=== PATIENT | female | born 1945 | race Caucasian/White ===

== ENCOUNTER 2021-03-03 15:21 | Emergency (ER) | payer MEDICARE, SELFPAY ==
[2021-03-03 15:32] VITALS: BP 115/79; PULSE 74; RESP 16; TEMP 36.4; O2SAT 99
--- NOTE | 2021-03-03 15:37 | ED.SKABFB ---
HPI - Skin/Abscess/Foreign Bdy General Chief complaint: Skin/Abscess/Foreign Body Stated complaint: Cat scratch on right hand Time Seen by Provider: 03/03/21 15:32 Source: patient and RN notes reviewed Mode of arrival: ambulatory Limitations: no limitations History of Present Illness HPI narrative: 75-year-old female presents to the [facility] with complaints of being scratched by a cat in the dorsal aspect right hand. Puncture wound and bruise noted. Last tetanus approximately 7 to 8 years ago. Swelling and bruising noted to the site. Occurred approximately 15 minutes prior to arrival. Does not think the cat has been fully vaccinated. Has full range of motion of fingers, strong plaster maker. Neurovascularly intact. Related Data Allergies Allergy/AdvReac Type Severity Reaction Status Date / Time latex Allergy Severe rash Verified 03/03/21 15:37 Review of Systems Review of Systems: All systems reviewed & are unremarkable except as noted in HPI and below Constitutional: Constitutional: Reports no additional constitutional complaints, Denies chills and Denies fever(s) Cardiovascular: Cardiovascular: Reports no additional cardiovascular complaints and Denies chest pain Respiratory: Respiratory: Reports no additional respiratory complaints, Denies cough and Denies dyspnea Musculoskeletal: Musculoskeletal: Reports no additional musculoskeletal complaints, Denies back pain, Denies arthralgias and Denies joint swelling Integumentary/Breasts: Skin/Breast: Reports as per HPI Comments: bruising and puncture wound Neurologic: Reports system reviewed and no additional complaints, except as documented Psychiatric: Psychiatric: Reports no additional psychiatric complaints Allergic/Immunologic: Allergic/Immunologic: Reports no additional allergic/immunologic complaints FOR[facility]LY [facility] Past Medical History Medical History (Updated 03/03/21 @ 15:40 by Gisselle Reed) Seasonal allergies Surgical History Surgical History Hx of carpal tunnel repair Hx of cataract surgery Family History Family History Mother Hx of cancer of uterus Hypotension Father Heart disease Diabetes mellitus Hypertension Sibling Asthma Hypotension Diabetes mellitus Daughter Hypertension Son Hypertension Social History Social History Smoking status: Never smoker Alcohol intake: current Substance use: never Substance use type: does not use Gender identity (if verbalized by the patient): Female Agree to blood products: Yes Comments At the time of my signature, I reviewed and agree with the nursing past medical, surgical, social, and family history. There is no relevant family history pertinent to the patient complaint. Exam Const: General: healthy appearing, no acute distress and alert Nutritional Appearance: well nourished Orientation/consciousness: patient oriented x3 Limitations: no limitations HENMT: Head: normal to inspection Eyes: Pupils: Equal, round and reactive pupils present Neck: Neck: normal visual inspection, no lymphadenopathy and no meningeal signs Chest: Chest palpation & inspection: normal inspection of the chest Resp: Effort & Inspection: normal respiratory effort and no use of accessory muscles Auscultation: clear to auscultation bilaterally, no crackles, no rales, no rhonchi and no wheezes Cardio: Rate: regular rate Rhythm: regular rhythm Back/Spine/Pelvis: Back: no CVA tenderness Skin: Wounds: wounds noted puncture wound right dorsal hand without any surrounding erythema Other: Bruising dorsal aspect right hand measuring 2 x 3 cm with a puncture wound in the center Neuro: General: patient oriented x3, moves all extremities, no meningeal signs and no focal motor deficits Speech: normal speech Gait exam (Neuro): Normal gait present Extrem: General: n
[2021-03-03] MEDS: TETANUS,DIPHTHERIA,AC PERTUSSIS ADULT (0.5 ML) BOOSTRIX IM (15:45)
== END 2021-03-03 16:00 | disposition home or self-care (01) ==
PROVIDERS: Emergency Provider Nurse Practitioner; PCP Family Medicine
DX: S60.511A Abrasion of right hand, initial encounter (principal); W55.03XA Scratched by cat, initial encounter; Z23 Encounter for immunization
CPT/HCPCS: 90471; 90715; 99213; G0463

== ENCOUNTER 2022-02-18 10:30 | Outpatient (CLI) | payer MEDICARE, SELFPAY ==
[2022-02-18 11:05] LABS: Hematocrit 39.7 % (37.0-47.0); Hemoglobin 12.3 g/dL (12.0-15.0); Mean Corpuscular Hemoglobin 29.5 pg (26-34); Mean Corpuscular Volume 95.2 fl (80-100); Mean Platelet Volume 11.5 fl (7.4-10.4); Platelet Count Result 258 k/mm3 (150-375); Red Blood Count 4.17 M/mm3 (4.2-5.4); Red Cell Distribution Width 13.3 % (11.5-14.5)
[2022-02-18 11:22] LABS: Alanine Aminotransferase 25 U/L (6-35); Albumin Level 4.5 g/dL (3.5-5.1); Alkaline Phosphatase 140 U/L (38-126); Anion Gap 7 mmol/L (8-16); Aspartate Amino Transferase 32 U/L (14-36); Bilirubin,Total 0.7 mg/dL (0.2-1.3); Blood Urea Nitrogen 14 mg/dL (7-17); Calcium 9.1 mg/dL (8.4-10.2); Carbon Dioxide 29 mmol/L (22-30); Chloride 104 mmol/L (98-107); Cholesterol 222 mg/dL (0-200); Estimated Glomerular Filt Rate > 60; Glucose 97 mg/dL (65-110); HDL Direct 35 mg/dL; Sodium 140 mmol/L (137-145); Triglycerides 238 mg/dL (<150)
[2022-02-18 11:33] LABS: LDL Cholesterol Direct 109 mg/dL
== END 2022-02-18 10:31 | disposition home or self-care (01) ==
LOC: ANHLAB 10:32
PROVIDERS: PCP Family Medicine; Visit Provider Family Medicine
DX: E78.2 Mixed hyperlipidemia (principal)
CPT/HCPCS: 36415; 80053; 80061; 85027; 86900; 86901

== ENCOUNTER 2022-02-23 09:10 | Outpatient (CLI) | payer MEDICARE, SELFPAY ==
[2022-02-23 09:56] LABS: Add Urine Microscopic? YES; Appearance Urine Cloudy (Clear); Bilirubin Urine 1+ (Negative); Blood Urine 1+ (Negative); Color Urine Yellow (Yellow); Glucose Urine UA Negative (Negative); Ketones Urine Negative (Negative); Leukocyte Esterase Ur 1+ LEU/UL (NEGATIVE); Nitrate Urine Negative (Negative); Protein Urine Trace mg/dL (Negative); Specific Grav Ur >= 1.030 (1.001-1.035); Urobilinogen Urine 0.2 mg/dL (<2.0); pH Urine 5.5 (5.0-9.0)
[2022-02-23 10:04] LABS: Bacteria Urine Trace /hpf; Mucus Urine Few /lpf; Squamous Epithelial Cell Urine Many /hpf (Few)
[2022-02-26 16:51] LABS: Albumin 3.9 g/dL (3.8-4.8); Alpha 1 Globulin 0.3 g/dL (0.2-0.3); Alpha 2 Globulin 0.7 g/dL (0.5-0.9); Beta 1 Globulin 0.5 g/dL (0.4-0.6); Gamma Globulin 1.7 g/dL (0.8-1.7); Protein, Total 7.6 g/dL (6.1-8.1)
== END 2022-02-23 09:11 | disposition home or self-care (01) ==
PROVIDERS: PCP Family Medicine; Visit Provider Family Medicine
DX: R77.9 Abnormality of plasma protein, unspecified (principal); R39.9 Unspecified symptoms and signs involving the genitourinary system
CPT/HCPCS: 36415; 81001; 84155; 84165; 87086

== ENCOUNTER → 2022-04-20 14:27 | Outpatient (CLI) | payer MEDICARE, SELFPAY ==
--- NOTE | ~2022-04-20 | DEXA_ITS ---
Bone Density Report Name: ALAINA MCMAHON Age: 76 Sex: Female Ethnicity: White Date of : 1945 Indication: postmenopausal; screening for osteoporosis; asthma or emphysema; Referring Provider: AMRIK BLEVINS Study: Bone densitometry was performed. Exam Date: April 20, 2022 Accession number: [id number] Bone Density: Region BMD T-score Z-score Classification AP Spine (L1-L4) 0.947 -0.9 1.5 Normal Femoral Neck (Left) 0.776 -0.7 1.4 Normal Total Hip (Left) 1.115 1.4 3.2 Normal Femoral Neck (Right) 0.855 0.1 2.1 Normal Total Hip (Right) 1.104 1.3 3.1 Normal Total Hip Mean 1.110 1.4 3.2 Normal World Health Organization criteria for BMD impression classify patients as: Normal (T-score at or above -1.0), Osteopenia (T-score between -1.0 and -2.5), or Osteoporosis (T-score at or below -2.5). 10-year Fracture Risk: FRAX not reported because: All T-scores for Spine Total, Hip Total, Femoral Neck at or above -1.0 Previous Exams: Region Exam Age BMD T-score BMD Change BMD Change Date g/cm2 vs Baseline vs Previous AP Spine(L1-L4) 04/20/2022 76 0.947 -0.9 -0.032* -0.032* 11/04/2005 59 0.979 -0.6 Total Hip(Left) 04/20/2022 76 1.115 1.4 -0.046* -0.046* 11/04/2005 59 1.161 1.8 Total Hip(Right) 04/20/2022 76 1.104 1.3 -0.073* -0.073* 11/04/2005 59 1.177 1.9 *Denotes significance at 95% confidence level, LSC for AP Spine = 0.022 g/cm2, LSC for Total Hip = 0.027 g/cm2 Clinical Information Provided by Patient: Has the following medical conditions: Asthma or Emphysema Patient maximum height was 63 Menopause Age: 47 No regular weight bearing exercise Drinks caffeinated beverages Onset of menses at age 13 Number of children 2 Impression: The patient has normal bone mass. The BMD for the AP Spine(L1-L4) decreased, changing by -0.032 since the last DXA exam. The BMD for the Total Hip(Left) decreased, changing by -0.046 since the last DXA exam. The BMD for the Total Hip(Right) decreased, changing by -0.073 since the last DXA exam. Discussion: BONE DENSITY IS ABOVE THE MINIMUM DESIRABLE LEVEL AT ALL SKELETAL SITES TESTED. This patient?s bone mineral density is above the minimum desirable level (T-score -1.0 or better) at all sites measured. The patient should follow a healthful lifestyle (good nutrition with adequate calcium and vitamin D, and appropriate weight-bearing exercise). Fol
== END ==
PROVIDERS: PCP Family Medicine; Visit Provider Family Medicine
DX: Z78.0 Asymptomatic menopausal state (principal)
CPT/HCPCS: 77080

== ENCOUNTER 2022-10-16 13:48 | Inpatient (IN) | payer MEDICARE, SELFPAY ==
[2022-10-16] VITALS (24 sets, daily range): BP systolic 122–177; BP diastolic 58–117; PULSE 66–91; RESP 13–22; TEMP 36.7–36.9; O2SAT 96–100; BMI 35.6
--- NOTE | ~2022-10-16 | CT_ITS ---
EXAMINATION: CT abdomen pelvis w con INDICATION: Abdominal distention TECHNIQUE: Computed tomographic images of the abdomen and pelvis were obtained after the administrati on of 100 cc of Omnipaque 350 intravenous contrast. The dose-length product (DLP) was 1120.36 mGy-cm. Automated exposure control and iterative reconstruction technique were employed. COMPARISON: 11/26/2005 FINDINGS: Minimal dependent atelectasis is present in the lung bases. The heart size is normal. A car diac pacemaker lead enters the right atrium and right ventricle through the inferior vena cava. Stone s are present in the nondistended gallbladder. The liver, spleen, and adrenal glands are normal. Ther e is a 1.4 x 0.6 cm cystic lesion in the head/body of the pancreas. Hypoattenuating lesions in the ki dneys, measuring up to 8 mm on the left, are too small to characterize but likely represent cysts. No pathologically enlarged abdominal or pelvic lymph nodes are identified. No free intraperitoneal gas or evidence of bowel obstruction. Colonic diverticulosis is present without evidence of diverticuliti s. The bladder is decompressed by Lopez catheter. The appendix is normal. IMPRESSION: 1. No CT correlate for the patient's symptoms. 2. Cholelithiasis without evidence of cholecystitis. 3. 1.4 cm cystic lesion of the pancreas. The differential diagnosis includes pseudocyst, intraductal papillary mucinous neoplasm (IPMN), mucinous cystic neoplasm (MCN), and the less common serous cystad enoma and neuroendocrine tumor. Correlate for history of pancreatitis. Follow-up pancreas protocol CT or MRI in two years is recommended. Reviewed, dictated and finalized at location A. ING MACHINE FEEDER IMPRESSION: 1. No CT correlate for the patient's symptoms. 2. Cholelithiasis without evidence of cholecystitis. 3. 1.4 cm cystic lesion of the pancreas. The differential diagnosis includes ps eudocyst, intraductal papillary mucinous neoplasm (IPMN), mucinous cystic neopl asm (MCN), and the less common serous cystadenoma and neuroendocrine tumor. Cor relate for history of pancreatitis. Follow-up pancreas protocol CT or MRI in tw o years is recommended.
--- NOTE | ~2022-10-16 | CT_ITS ---
EXAMINATION: CT brain wo con DATE: 10/16/2022 17:14 INDICATION: Head injury. TECHNIQUE: Computed tomography (CT) of the head was performed without intravenous contrast. The mA wa s adjusted according to patient size. Iterative reconstruction technique was employed. The dose-lengt h product was 681.00 mGy-cm. COMPARISON: None FINDINGS: There is no intracranial hemorrhage, acute infarction, or abnormal intracranial mass lesion . There are scattered areas of low attenuation in the cerebral white matter, which is within normal l imits for the patient's age. The ventricles are normal in size. There are likely changes of ocular le ns replacement surgeries. There is mild mucosal thickening in the ethmoid sinuses. There is soft tiss ue swelling and soft tissue gas in the nose. The mastoid air cells are normal. IMPRESSION: 1. Normal aging brain. Reviewed, dictated and finalized at location A. CHOPPER IMPRESSION: 1. Normal aging brain.
--- NOTE | ~2022-10-16 | XR_ITS ---
EXAMINATION: XR chest 1V portable DATE: 10/22/2022 11:25 INDICATION: Pacer placement. TECHNIQUE: A single frontal view of the chest was obtained. COMPARISON: Chest single view 10/19/2022 FINDINGS: There is mild atelectasis in the mid and lower lung zones. No pleural effusion or pneumotho rax. Cardiomegaly is noted. There is a left chest wall pacer with leads in the right atrium and right ventricle. IMPRESSION: 1. Mild atelectasis in the mid and lower lung zones. 2. Cardiomegaly. Reviewed, dictated and finalized at location A. RUNNER
--- NOTE | ~2022-10-16 | XR_ITS ---
EXAMINATION: XR abdomen NG/feed tube insert DATE: 10/20/2022 18:13 INDICATION: Nasogastric tube placement TECHNIQUE: A supine view of the abdomen and lower chest was obtained for evaluation of feeding tube placement. COMPARISON: 10/20/2022 at 4:43 PM FINDINGS: Nasogastric tube tip in the gastric antrum with interval decompression of the stomach. Again seen are a few dilated loops of bowel in the upper abdomen, one in the right upper quadrant which appears to represent a loop of small bowel suggesting either ileus or obstruction. IMPRESSION: 1. Nasogastric tube in stomach. 2. Persistent gas-filled loops of small bowel at least one of which appears ribs at the mildly dilate d loop of small bowel which could represent ileus or obstruction. Reviewed, dictated and finalized at location A. L DISTRIBUTOR IMPRESSION: 1. Nasogastric tube in stomach. 2. Persistent gas-filled loops of small bowel at least one of which appears rib s at the mildly dilated loop of small bowel which could represent ileus or obst ruction.
--- NOTE | ~2022-10-16 | XR_ITS ---
EXAMINATION: XR abdomen/kub 1V DATE: 10/20/2022 16:50 INDICATION: Abdominal distention TECHNIQUE: A supine view of the abdomen was obtained. COMPARISON: CT dated 10/17/2022 FINDINGS: Comment gaseous distention of the stomach. There are also several gas-filled loops of bowel in the vi sualized lower abdomen which appear primarily colonic. Right femoral central venous catheter which ex tends into the heart with the distal tip in the right ventricle. Defibrillator pad projects over the central lower chest. Heart size is normal. Dense mitral annular calcification. IMPRESSION: 1. Nonspecific bowel gas pattern with prominent gaseous distention of the stomach and multiple loops of gas-filled bowel in the abdomen which appear primarily colonic. 2. Right femoral central venous catheter with distal tip in the right ventricle and would consider wi thdrawal by [address] the tip in the right atrium. Reviewed, dictated and finalized at location A. UP AND DELIVERY DRIVER IMPRESSION: 1. Nonspecific bowel gas pattern with prominent gaseous distention of the stoma ch and multiple loops of gas-filled bowel in the abdomen which appear primarily colonic. 2. Right femoral central venous catheter with distal tip in the right ventricle and would consider withdrawal by [address] the tip in the right atrium.
--- NOTE | ~2022-10-16 | US_ITS ---
Procedure: Duplex Doppler examination of the bilateral carotids. Indication: Carotid bruit Technique: Real time, color-flow and pulse wave Doppler examination of the bilateral carotids was performed. Findings: Lund scale ultrasonography of the right neck demonstrated a small plaque at the right carotid bulb/pr oximal right ICA. There was demonstration of normal color-flow and Doppler waveforms within the right common, internal and external carotid arteries. The peak systolic velocities in the right common, in ternal and external carotid arteries were demonstrated to be 96 cm/sec, 80 cm/sec and 87 cm/sec respe ctively. The right ICA/CCA ratio was 0.9.The proximal right internal carotid artery demonstrates 0% s tenosis relative to the normal distal artery lumen diameter. Lund scale sonography of the left neck demonstrated no significant plaque. There was demonstration of normal color-flow and wave forms within the left common, internal and external carotid arteries. The peak systolic velocities in the left common, internal and external carotid arteries were demonstrate d to be 90cm/sec, 46 cm/sec and 69 cm/sec respectively. The left ICA/CCA ratio was 0.8. The proximal left internal carotid artery demonstrates 0% stenosis relative to the normal distal artery lumen diam eter. There was antegrade flow demonstrated in the bilateral vertebral arteries. Impression: No hemodynamically significant stenosis of the bilateral internal carotid arteries. Antegrade flow in the bilateral vertebral arteries. Note: The methodology used is an indirect measurement validated against a direct method (such as the NASCET criteria) that compares diameters at the stenosis to the distal ICA. Reviewed, dictated and finalized at location . E DIGGER Impression: No hemodynamically significant stenosis of the bilateral internal carotid arter ies. Antegrade flow in the bilateral vertebral arteries. Note: The methodology used is an indirect measurement validated against a direct meth od (such as the NASCET criteria) that compares diameters at the stenosis to the distal ICA.
--- NOTE | ~2022-10-16 | XR_ITS ---
Clinical Indication: Pacemaker placement AP and lateral views of the chest: Comparison: 10/22/2022 Findings: The lungs are clear, without evidence of focal consolidation or pleural effusion. Cardiome diastinal silhouette is stable, with pacemaker placement. Bones and soft tissues are unremarkable. Impression: Clear lungs. No pneumothorax. Pacemaker in place. Reviewed, dictated and finalized at location . BREAKAGE CLERK Impression: Clear lungs. No pneumothorax. Pacemaker in place.
--- NOTE | ~2022-10-16 | XR_ITS ---
EXAMINATION: XR chest 1V portable INDICATION: Shortness of breath TECHNIQUE: Portable AP chest at 0541 hours COMPARISON: 10/16/2022 FINDINGS: There is mild atelectasis of the lung bases. No pleural effusion or pneumothorax. The cardi omediastinal silhouette is normal. A cardiac pacemaker lead has been inserted which enters the heart is inferior vena cava. IMPRESSION: 1. Mild atelectasis of the lung bases. Reviewed, dictated and finalized at location A. UNITY SUPPORT ASSOCIATE
--- NOTE | ~2022-10-16 | XR_ITS ---
EXAMINATION: XR chest 2V DATE: 10/16/2022 17:29 INDICATION: Syncope. TECHNIQUE: Frontal and lateral views of the chest were obtained. COMPARISON: CT abdomen 11/26/2005 FINDINGS: Calcified pulmonary nodules are consistent with old granulomatous disease. No pleural effus ion or pneumothorax. The heart size is normal. IMPRESSION: 1. No acute cardiopulmonary disease. Reviewed, dictated and finalized at location A. 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
--- NOTE | ~2022-10-16 | XR_ITS ---
EXAMINATION: XR abdomen obstructive series DATE: 10/21/2022 09:31 INDICATION: Abdominal distention TECHNIQUE: Upright and supine views of the abdomen were obtained. COMPARISON: 10/20/2022 FINDINGS: The nasogastric tube has been removed. There are persistently dilated loops of small bowel which appear to have slightly decreased in number and degree of distention. No free intraperitoneal g as is identified. Patchy bilateral airspace opacities persist, consistent with atelectasis versus pne umonia. 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 IMPRESSION: 1. Persistent but improved small bowel dilatation, ileus versus obstruction. Reviewed, dictated and finalized at location B. CLIMBER
--- NOTE | ~2022-10-16 | XR_ITS ---
EXAMINATION: XR chest 1V portable INDICATION: Fever TECHNIQUE: Portable AP chest at 0800 hours COMPARISON: 10/18/2022 FINDINGS: The lung volumes are low. There are patchy bilateral airspace opacities. The cardiomediasti nal silhouette is stable. A pacemaker lead enters the right ventricle through the inferior vena cava. There is gaseous distention of the stomach. IMPRESSION: 1. Patchy bilateral airspace opacities, consistent with atelectasis versus pneumonia. 2. Gaseous distention of the stomach. Reviewed, dictated and finalized at location B. URE COPYIST IMPRESSION: 1. Patchy bilateral airspace opacities, consistent with atelectasis versus pneu monia. 2. Gaseous distention of the stomach.
--- NOTE | 2022-10-16 13:49 | ECG_ITS ---
Measurements Intervals Hale Rate: 71 P: 49 MS: 174 QRS: -38 QRSD: 158 T: 121 QT: 444 QTc: 483 Interpretive Statements SINUS RHYTHM MARKED LEFT AXIS DEVIATION [QRS AXIS < -30] LEFT BUNDLE BRANCH BLOCK [120+ ms QRS DURATION, 80+ ms Q/S IN V1/V2, 85+ ms R IN I/aVL/V5/V6] NO PREVIOUS ECG AVAILABLE FOR COMPARISON Electronically Signed On 10-16-2022 15:04:22 [employer] by Paxton Mcfarland M.D.
[2022-10-16 14:22] LABS: Basophils Percent Auto 0.4 % (0.2-1.2); Eosinophils Absolute Auto 0.3 K/mm3 (0-0.3); Eosinophils Percent Auto 2.9 % (0-4.4); Hematocrit 42.6 % (37.0-47.0); Hemoglobin 13.3 g/dL (12.0-15.0); Immature Granulocyte Absolute 0.04 K/mm3 (0.00-0.031); Immature Granulocyte Percent A 0.4 % (0-0.5); Lymphocytes Absolute Auto 1.16 K/mm3 (0.9-3.2); Lymphocytes Percent Auto 11.6 % (18.3-44.2); Mean Corpuscular HGB Conc 31.2 g/dl (32-36); Monocytes Absolute Auto 0.6 K/mm3 (0.1-0.6); Monocytes Percent Auto 6.4 % (2.6-8.5); Neutrophils Absolute Auto 7.9 K/mm3 (1.3-6.7); Neutrophils Percent Auto 78.3 % (45.5-73.1); Platelet Count Result 300 k/mm3 (150-375); Red Blood Count 4.58 M/mm3 (4.2-5.4); Red Cell Distribution Width 13.5 % (11.5-14.5)
[2022-10-16 14:31] LABS: Alanine Aminotransferase 33 U/L (6-35); Albumin Level 4.4 g/dL (3.5-5.1); Alkaline Phosphatase 117 U/L (38-126); Anion Gap 3 mmol/L (8-16); Aspartate Amino Transferase 37 U/L (14-36); Bilirubin,Total 0.6 mg/dL (0.2-1.3); Blood Urea Nitrogen 13 mg/dL (7-17); Carbon Dioxide 30 mmol/L (22-30); Chloride 103 mmol/L (98-107); Estimated CRCL calculation 57 ml/min; Estimated Glomerular Filt Rate > 60; Glucose 110 mg/dL (65-110); Potassium 4.2 mmol/L (3.4-5.0); Sodium 136 mmol/L (137-145)
--- NOTE | 2022-10-16 16:52 | ED.GENADULT ---
HPI - General Adult General Chief complaint: Syncope Stated complaint: syncope X3 days Time Seen by Provider: 10/16/22 16:11 History of Present Illness HPI narrative: Patient is a 76-year-old female who presents ER with syncope. She has been having daily syncope for the last week. Today she went to feed her birds on her screened in porch and was handing them there black sunflower seed when she woke up on her stomach on the ground and hit her face on the porch table. She has pain over nasal bridge. She is not on blood thinners. She is unsure why she is losing consciousness and denies prodrome of racing the heart, spinning dizziness, or vision going black. No chest pain or chest pressure. Denies numbness or weakness in arm or leg. No slurred speech. Related Data Allergies Allergy/AdvReac Type Severity Reaction Status Date / Time latex Allergy Severe rash Verified 10/06/22 08:22 Review of Systems Review of Systems: All systems reviewed & are unremarkable except as noted in HPI and below Constitutional: Constitutional: Denies chills, Denies fatigue and Denies fever(s) ENT: Denies nasal congestion and Denies sore throat Comments: Nasal pain Cardiovascular: Cardiovascular: Denies chest pain, Denies rapid heart rate and Denies radiating jaw, neck or arm pain Respiratory: Respiratory: Denies cough and Denies dyspnea Neurologic: Reports syncope, Denies headache(s), Denies focal weakness and Denies numbness PMFSH Past Medical History Medical History Mixed hyperlipidemia Seasonal allergies Surgical History Surgical History Hx of carpal tunnel repair Hx of cataract surgery Family History Family History Mother Hx of cancer of uterus Hypotension Father Heart disease Diabetes mellitus Hypertension Sibling Asthma Hypotension Diabetes mellitus Daughter Hypertension Son Hypertension Social History Social History (Updated 10/06/22 @ 08:22 by Rachell Cavanaugh CMA) Smoking status: Never smoker Second hand tobacco smoke exposure: No Alcohol intake: current Alcohol use details: socially; seldom Substance use: never Substance use type: does not use Lack of Transportation: No Lack of Food: Never True Current Housing: I Have Housing Concerned About Future Housing: No Difficulty Paying Gas/Electric Bills: No Difficulty Paying for Meds: No Currently Unemployed: No Education: Master's Degree or Higher Difficulty w/ Childcare or Family Care: No Living arrangements: with family Gender identity (if verbalized by the patient): Female Sexual Orientation (if Verbalized by the Patient): Straight or Heterosexual Agree to blood products: Yes Exam Narrative: GENERAL: Well-appearing, well-nourished, and in no acute distress. HEAD: Normocephalic, atraumatic. EYES: PERRL and EOMI. ENT: Mucous membranes moist. Tenderness over the bridge of the nose with abrasion. TMs normal bilaterally. CHEST: Clear to auscultation. No respiratory distress. HEART: Regular rate and rhythm. Normal peripheral pulses. ABDOMEN: Soft, nontender, nondistended. EXTREMITIES: Normal range of motion. No edema. SKIN: Warm, dry, no rash. NEURO: Alert and oriented x3. PSYCH: Normal mood and affect. Course Course Emergency Course: Patient resting comfortably. Informed of results. Admit to hospitalist service. Concerning for cardiogenic syncope given unprovoked nature and elevated troponin. Patient aware of treatment plan and in agreement. Vital Signs Vital signs: Vital Signs Temperature 98.0 F 10/16/22 13:50 Pulse Rate 71 10/16/22 13:50 Respiratory Rate 18 10/16/22 13:50 Blood Pressure 154/81 H 10/16/22 13:50 Pulse Oximetry 97 10/16/22 13:50 Oxygen Delivery Room Air 10/16/22 13:50 Temperature 9
[2022-10-16 17:18] LABS: INR 1.1; Partial Thromboplastin Time 27.6 SECONDS (22.3-36.8); Prothrombin Time 13.7 Seconds (11.1-14.7)
[2022-10-16 17:33] LABS: Troponin I 0.041 ng/mL (0.000-0.034)
--- NOTE | 2022-10-16 19:00 | PM.IMHP ---
H&P: HPI History of Present Illness Date/Time: 10/16/22 19:00 Chief Complaint: Syncope. Narrative: This is a very pleasant 76-year-old female with history of hyperlipidemia and allergies who presented to the emergency department from home for evaluation after syncopal episode. This morning she went outside to feed the birds and when she came back in she had a brief episode where she felt ?woozy and dizzy? and she had a brief syncopal episode, striking her head on the kitchen table. She must have come to quite quickly as her legs were still holding her up somewhat though a majority of her weight was on the table. With further questioning she admits that she has had several syncopal or near syncopal episodes this week and with each episode she has a very brief prodrome with lightheadedness, weakness, nausea, and ?feeling as though my head is on a [id number].? Several days ago she fell back and hit her head on the wall. She has not sustained any significant injuries however. She denies sinus congestion, aural fullness, tinnitus, focal weakness, paresthesias, chest pain, pleuritic pain, palpitations, shortness of breath, lower extremity edema, and calf pain. She has not had a change in exercise tolerance and she and her were able to walk around [facility] for several hours a couple of weeks ago without issue. Blood pressures were stable if not elevated on arrival to the emergency department. Her initial troponin was mildly elevated 0.041 but the rest of her labs were pretty unremarkable. EKG showed sinus rhythm with left bundle branch block and a marked left axis deviation. On exam she has a pretty significant murmur consistent with aortic stenosis and with further questioning she has been told about that but she has not been referred to a order editor. She is unaware if she has ever had an abnormal EKG. Again she has not had any recent episodes of chest pain or shortness of breath. Review of Systems Review of Systems: Twelve systems were reviewed and are negative except for as per HPI. [facility] Past Medical History Medical History Mixed hyperlipidemia Seasonal allergies Surgical History Surgical History History of carpal tunnel release History of cataract extraction Family History Family History Mother Hx of cancer of uterus Hypotension Father Heart disease Diabetes mellitus Hypertension Sibling Asthma Hypotension Diabetes mellitus Daughter Hypertension Son Hypertension Social History Social History (Updated 10/16/22 @ 22:21 by Rebeka Freitas PA-C) Social History: Surrogate medical decision maker: Albino Chandra, spouse. Code status: Full code. Smoking status: Never smoker Second hand tobacco smoke exposure: No Alcohol intake: current Alcohol use details: Rare alcohol use in moderation. Substance use: never Substance use type: does not use Lack of Transportation: No Lack of Food: Never True Current Housing: I Have Housing Concerned About Future Housing: No Difficulty Paying Gas/Electric Bills: No Difficulty Paying for Meds: No Currently Unemployed: No Education: Master's Degree or Higher Difficulty w/ Childcare or Family Care: No Living arrangements: with family Additional living arrangements comments: Lives in [place] with spouse. 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 Agree to blood products: Yes Meds Home Medications and Allergies Home Medications Medication Instructions Recorded Confirmed Type albuterol sulfate 90 mcg/actuation 1 inh inhalation Q4H PRN shortness 05/20/22 10/06/22 Rx aerosol inhaler of breath or wheezing #8.5 grams atorvastatin 10 mg tablet 10 mg PO DAILY #90 tabs 06/29/22 10/16/22 Rx montelukast 10 mg tablet 10 m
[2022-10-16 20:25] LABS: Influenza A QL RT-PCR Negative (Negative); Influenza B QL RT-PCR Negative (Negative); SARS-CoV-2 RNA PCR Negative
--- NOTE | 2022-10-16 21:53 | ADMGEN ---
This patient, Bessie Chandra, was admitted to IMU Room 201-01 on 10/16/22 at 2148. Patient/family oriented to hospital policies and general routines including ID bracelet, bed and alarms, visiting hours, pain management, procedures, bathroom and other care routines, personal items, smoking policy, room service/diet, and visiting hours. Information on how to activate the Rapid Response Team has been discussed. Patient/Family are encouraged to report perceived risks to care and to ask questions if they do not understand what they are told or what they should do.
[2022-10-16 23:49] LABS: Troponin I 0.042 ng/mL (0.000-0.034)
[2022-10-17] VITALS (20 sets, daily range): BP systolic 94–153; BP diastolic 59–96; PULSE 63–131; RESP 16–23; TEMP 36.1–37.4; O2SAT 90–96
[2022-10-17 04:30] LABS: Hematocrit 38.6 % (37.0-47.0); Hemoglobin 12.4 g/dL (12.0-15.0); Mean Corpuscular HGB Conc 32.1 g/dl (32-36); Mean Corpuscular Volume 90.4 fl (80-100); Mean Platelet Volume 11.4 fl (7.4-10.4); Platelet Count Result 274 k/mm3 (150-375); Red Blood Count 4.27 M/mm3 (4.2-5.4); Red Cell Distribution Width 13.3 % (11.5-14.5); White Blood Count 9.8 K/mm3 (4.5-10.0)
[2022-10-17 04:44] LABS: Anion Gap 7 mmol/L (8-16); Blood Urea Nitrogen 12 mg/dL (7-17); Calcium 8.7 mg/dL (8.4-10.2); Carbon Dioxide 28 mmol/L (22-30); Chloride 104 mmol/L (98-107); Cholesterol 177 mg/dL (0-200); Estimated CRCL calculation 64 ml/min; Estimated Glomerular Filt Rate > 60; Glucose 94 mg/dL (65-110); HDL Direct 35 mg/dL; Magnesium 2.1 mg/dL (1.6-2.3); Potassium 3.8 mmol/L (3.4-5.0); Sodium 139 mmol/L (137-145); Triglycerides 120 mg/dL (<150)
[2022-10-17 04:55] LABS: LDL Cholesterol Direct 86 mg/dL
[2022-10-17 05:03] LABS: Troponin I 0.046 ng/mL (0.000-0.034)
[2022-10-17 05:26] LABS: Thyroid Stimulating Hormone Reflex 0.739 uIU/mL (0.465-4.68)
[2022-10-17] MEDS: ASPIRIN 81 MG ENTERIC TABLET PO (09:07)
[2022-10-17] MEDS: LORATADINE 10 MG TABLET PO (09:07)
[2022-10-17] MEDS: OMEGA 3 POLYUNSAT FATTY ACIDS 1 GM CAP PO (09:07)
[2022-10-17] MEDS: ATORVASTATIN 10 MG TABLET PO (09:07)
[2022-10-17] MEDS: ENOXAPARIN 40 MG/0.4 ML SYRINGE SUB-Q (09:07)
[2022-10-17] MEDS: PERFLUTREN LIPID MICROSPHERES 1.5 ML VIAL DILUTED TO 10 ML TOTAL VOLUME IV PUSH (09:30)
--- NOTE | 2022-10-17 10:21 | PM.CNCAR ---
Assessment and Plan Assessment and plan (1) Cardiac murmur: Code(s): R01.1 - Cardiac murmur, unspecified Status: Acute Assessment and Plan: Likely related to significant aortic stenosis. 2D echocardiogram Doppler is ordered and will be reviewed. (2) Left bundle branch block: Code(s): I44.7 - Left bundle-branch block, unspecified Status: Acute Assessment and Plan: Uncertain if this is new or old. Regardless, it may play a role in the type of pacemaker recommended (3) Mixed hyperlipidemia: Code(s): E78.2 - Mixed hyperlipidemia Status: Acute Assessment and Plan: Continue statin (4) Syncope: Code(s): R55 - Syncope and collapse Status: Acute Assessment and Plan: Her syncope is likely secondary to asystole. She has had an 8 sec pause last night and she was symptomatic at that time. Obviously contributing to her symptoms may be her significant valvular heart disease which is likely aortic stenosis. Will place transcutaneous pacer pads on her. Obviously avoid any in all AV carlita agents. Will review echocardiogram and decision will be made due to regarding possible transfer or if she stays here for dual chamber pacemaker on Wednesday. (5) Elevated troponin: Code(s): R77.8 - Other specified abnormalities of plasma proteins Status: Acute Assessment and Plan: Not related to ACS History of Present Illness History of Present Illness Consult date/time: 10/17/22 10:21 Requesting physician: Rebeka Freitas PA-C Consult reason: Other (Syncope) Reason For Visit: Syncope, elevated troponin Narrative: Date of service 10/17/2022 Reason for consultation: Syncope Requesting provider: Rebeka Freitas History: Patient is a is a 76-year-old female who does have a known history of a murmur and has been recommended to have murmur further evaluated by Cardiology but she has refused. Murmur is likely secondary to aortic stenosis. Regardless though over the past week or so she has had several episodes of either syncope and presyncope. Yesterday she came to the hospital following a syncopal episode which was very brief. She felt woozy and dizzy and then did strike her head on the kitchen table. She has had several other similar episodes with a brief prodrome of some lightheadedness weakness and nausea. Reportedly, several days ago she fell back and hit her head against the wall. No significant injuries have occurred at this point. She denies any chest pain, palpitations, paroxysmal nocturnal dyspnea, orthopnea, edema. She does have some shortness of breath with activity such as climbing up and down a flight of stairs. She came to the hospital an EKG showed a left bundle branch block. Troponins were minimally elevated 0.04. She is found have a significant aortic stenosis murmur and yesterday evening she did have ventricular asystole for about 8 seconds. She did not pass out but she was presyncopal at that time. Review of Systems Review of Systems: All systems reviewed & are unremarkable except as noted in HPI and below Constitutional: Constitutional: Denies body ache(s) Eyes: Eyes: Denies blurry vision ENT: Reports Normal hearing present Cardiovascular: Cardiovascular: Denies chest pain and Reports lightheadedness Respiratory: Respiratory: Denies dyspnea Gastrointestinal: Gastrointestinal: Denies abdominal pain Genitourinary: Genitourinary: Denies hematuria Musculoskeletal: Musculoskeletal: Denies myalgias Integumentary/Breasts: Skin/Breast: Denies erythema and Denies rash Neurologic: Denies Abnormal speech present Psychiatric: Psychiatric: Denies anxiety Endocrine: Endocrine: Denies excessive sweating Hematologic/Lymphatic: Hematologic/Lymphatic: Denies easy bleeding Allergic/Immunologic: Allergic/Immunologic: Denies GI upset with certain foods PMFSH Past Medical History Medical History (Reviewed 10/17/22 @ 10:25 by Mele
--- NOTE | 2022-10-17 12:35 | PC.NURSE ---
At 1253, RN noticed patient was going into irregular rhythm. RN checked on patient and patient was not having symptoms. RN ordered a EKG and notified dr. norwood. Dr. Norwood to bedside and given EKG to look at. Verbal orders not to treat AFib RVR due to patient pauses. Will continue to moniter patient per IMU protocols.
--- NOTE | 2022-10-17 12:49 | ECG_ITS ---
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
--- NOTE | 2022-10-17 14:17 | PM.IMPN ---
Progress Note: A&P Assessment and Plan (1) Syncope: Code(s): R55 - Syncope and collapse Status: Acute (2) Contusion of nose: Code(s): S00.33XA - Contusion of nose, initial encounter Status: Acute (3) Elevated blood pressure reading: Code(s): R03.0 - Elevated blood-pressure reading, without diagnosis of hypertension Status: Acute (4) Cardiac murmur: Code(s): R01.1 - Cardiac murmur, unspecified Status: Acute (5) Carotid bruit: Code(s): R09.89 - Other specified symptoms and signs involving the circulatory and respiratory systems Status: Acute (6) Elevated troponin: Code(s): R77.8 - Other specified abnormalities of plasma proteins Status: Acute (7) Abnormal EKG: Code(s): R94.31 - Abnormal electrocardiogram [ECG] [EKG] Status: Acute (8) Mixed hyperlipidemia: Code(s): E78.2 - Mixed hyperlipidemia Status: Acute Assessment and Plan: Syncope likely from SSS EKG showed LBBB ECHO showed aortic stenosis Pacemaker per cardiology no AV node blockers cardiology following Aortic stenosis Cardiology on board, may need further evaluation Elevated troponin trend troponin Continue statin cardiology following HLD continue statin Carotid bruit Carotid US pending Elevated BP no previous diagnosis of HTN bP 123/96 monitor DVT prophylaxis Sq Lovenox Subjective Date/time seen: 10/17/22 14:17 Presented to the ER on account of syncope noted have to sinus pause of 8 seconds last night. cardiology on board and planning to do pacemaker or transfer to a higher level of care. Denies any chest pain or SOB or palpitations Review of Systems Review of Systems: All systems reviewed & are unremarkable except as noted in HPI and below Exam Narrative: General: Well-developed female sitting up in bed in no distress. HEENT: Abrasion over the bridge of the nose. PERRL, EOMI. Sclera anicteric. Oral mucosa moist. Neck: Supple. No midline vertebral tenderness. Bilateral bruits versus likely radiation of cardiac murmur. Respiratory: Lungs are clear to auscultation bilaterally. Cardiovascular: Regular rate and rhythm with S1-S2. 3/6 systolic murmur at the right upper sternal border to carotids. Gastrointestinal: Abdomen is soft, nontender, and nondistended with positive bowel sounds. Skin: Warm and dry. No rash or lesions on limited exam. Extremities: No cyanosis, clubbing, or edema. Radial and pedal pulses intact. Neurological: Alert. Cranial nerves 2-12 are grossly intact. No gross focal deficits to casual conversation. Psychiatric: Pleasant and cooperative with normal mood and affect. Judgment and insight intact. Objective Data Vital Signs Vital Signs: Vital Signs - 24 hr 10/16/22 15:53 10/16/22 15:58 10/16/22 16:02 Temperature Pulse Rate 69 91 Respiratory Rate 22 H Blood Pressure 150/67 H Pulse Oximetry 96 98 Oxygen Delivery Room Air Room Air 10/16/22 16:40 10/16/22 16:41 10/16/22 16:42 Temperature Pulse Rate 84 81 85 Respiratory Rate Blood Pressure 165/75 H 177/86 H 168/117 H Pulse Oximetry Oxygen Delivery 10/16/22 15:48 10/16/22 16:00 10/16/22 16:15 Temperature Pulse Rate 66 71 84 Respiratory Rate 13 16 19 Blood Pressure Pulse Oximetry 96 98 96 Oxygen Delivery 10/16/22 17:32 10/16/22 17:41 10/16/22 17:53 Temperature Pulse Rate 73 72 67 Respiratory Rate 14 15 19 Blood Pressure 151/93 H Pulse Oximetry Oxygen Delivery 10/16/22 18:04 10/16/22 18:15 10/16/22 18:30 Temperature Pulse Rate 67 69 69 Respiratory Rate 19 16 22 H Blood Pressure Pulse Oximetry Oxygen Delivery 10/16/22 18:41 10/16/22 18:46 10/16/22 20:22 Temperature Pulse Rate 67 68 88 Respiratory Rate 22 H 21 H 20 Blood Pressure 144/70 H 133/78 Pulse Oximetry 99 98 Oxygen Delivery 10/16/22 21:27 10/16/22 21:33
--- NOTE | 2022-10-17 15:07 | WPDMODSED ---
Moderate Sedation Note-Pt Data Patient Data Diagnosis: sinus pauses Present Complaint: loss of consciousness Procedure to be performed/Plan: temporary pacemaker placement Allergies Allergy/AdvReac Type Severity Reaction Status Date / Time No Known Allergies Allergy Verified 10/16/22 22:49 Home Medications Medication Instructions Recorded Confirmed Type albuterol sulfate 90 mcg/actuation 1 inh inhalation Q4H PRN shortness 05/20/22 10/16/22 Rx aerosol inhaler of breath or wheezing #8.5 grams atorvastatin 10 mg tablet 10 mg PO DAILY #90 tabs 06/29/22 10/16/22 Rx montelukast 10 mg tablet 10 mg PO QHS #30 tabs 06/29/22 10/16/22 Rx Dulcolax (bisacodyl) 5 mg PO DAILY PRN Constipation 10/16/22 10/16/22 History Reydon 3 Fish Oil 1,200 mg PO DAILY 10/16/22 10/16/22 History cetirizine 10 mg tablet (Zyrtec) 10 mg PO DAILY 10/16/22 10/16/22 History clindamycin phosphate 2 % vaginal 1 applic vaginal HS 10/16/22 10/16/22 History cream Current Medications: Active Medications Acetaminophen (Acetaminophen 325 Mg Tablet) 650 mg PO Q6H PRN PRN Reason: Mild Pain (1-3) or Fever Albuterol (Albuterol Sulfate (*Sp) Aerosol 1 Puff) 1 puff INHALATION Q4H PRN PRN Reason: shortness of breath or wheezing Aspirin (Aspirin 81 Mg Enteric Tablet) 81 mg PO QAM [facility] Last Admin: 10/17/22 09:07 Dose: 81 mg Atorvastatin Calcium (Atorvastatin 10 Mg Tablet) 10 mg PO DAILY [facility] Last Admin: 10/17/22 09:07 Dose: 10 mg Enoxaparin Sodium (Enoxaparin 40 Mg/0.4 Ml Syringe) 40 mg SUB-Q DAILY [facility] Last Admin: 10/17/22 09:07 Dose: 40 mg Fish Oil (Reydon 3 Polyunsat Fatty Acids 1 Gm Cap) 1 gm PO QAM [facility] Last Admin: 10/17/22 09:07 Dose: 1 gm Loratadine (Loratadine 10 Mg Tablet) 10 mg PO QAM [facility] Last Admin: 10/17/22 09:07 Dose: 10 mg Miscellaneous Information (Clindamycin Vaginal Cream Is Nonformulary - Can Patient Use From Home?) 0 each XX CLARIFY ELIANE Stop: 11/16/22 00:00 Last Admin: 10/17/22 01:08 Dose: Not Given Montelukast Sodium (Montelukast Sodium 10 Mg Tablet) 10 mg PO QHS [facility] Morphine Sulfate (Morphine Sulfate (*Crx) 4 Mg/Ml Inj) 4 mg IV PUSH Q2H PRN PRN Reason: Pain Rated 7-10 Non-Formulary Medication (Clindamycin Phosphate) 1 applic VAGINAL HS [facility] Stop: 11/16/22 20:59 Promethazine HCl (Promethazine Hcl 25 Mg/Ml Ampul) 12.5 mg IV PUSH Q6H PRN PRN Reason: Nausea Sedation/Anesthesia: No previous sedation/anesthesia problems (including family history). [facility] Past Medical History Medical History Mixed hyperlipidemia Seasonal allergies Surgical History Surgical History History of carpal tunnel release History of cataract extraction Family History Family History Mother Hx of cancer of uterus Hypotension Father Heart disease Diabetes mellitus Hypertension Sibling Asthma Hypotension Diabetes mellitus Daughter Hypertension Son Hypertension Social History Social History Social History: Surrogate medical decision maker: Albino Chandra, spouse. Code status: Full code. Smoking status: Never smoker Second hand tobacco smoke exposure: No Alcohol intake: current Alcohol use details: Rare alcohol use in moderation. Substance use: never Substance use type: does not use Lack of Transportation: No Lack of Food: Never True Current Housing: I Have Housing Concerned About Future Housing: No Difficulty Paying Gas/Electric Bills: No Difficulty Paying for Meds: No Currently Unemployed: No Education: Master's Degree or Higher Difficulty w/ Childcare or Family Care: No Living arrangements: with family Additional living arrangements comments: Lives in [place] with spouse. Additional occupation/education comments: Retired [employer]
--- NOTE | 2022-10-17 15:29 | W.PM.PROC2 ---
Procedure Note - Detailed Date of Procedure 10/17/22 Pre-op Diagnosis Symptomatic sinus pauses with syncope Post-op Diagnosis Same Procedure Performed 1. Insertion and placement of temporary transvenous pacemaker through right femoral venous access 2. Moderate sedation- CPT code 32755 Surgeon Jamal Dong MD Anesthesia Local Indications Symptomatic sinus pauses, syncope Description of Procedure patient brought to the clinical laboratory aide and prepped and draped in usual sterile manner. After local anesthesia lidocaine, right common femoral venous access was taken with micropuncture needle followed by insertion of a 5 Lebanese sheath. A transvenous pacemaker was inserted, however, there was difficulty in advancing the tip of the pacemaker through the tip of the 5 Lebanese sheath. Therefore, 5 Lebanese sheath was upgraded to 6 Lebanese sheath over 035 wire. Next, the same balloon tipped temporary transvenous pacemaker wire was advanced under fluoroscopic guidance and positioned in the right ventricle. The balloon was deflated. Pacemaker thresholds were checked at 90 beats per minute, and then pacemaker rate was decreased to 70 beats per minute. Patient had intrinsic rhythm at the rate. The pacemaker wire was secured with sutures and patient was transferred to the ICU. There were no immediate procedure related complications. Patient has not been on any known AV carlita blocking agents. Plan/ recommendation: 1. Admit to ICU 2. Patient will likely undergo permanent pacemaker placement on Wednesday10/19/2022. 3. Other management as per primary team. Urine Output 200
[2022-10-17] MEDS: SODIUM CHLORIDE 0.9% IV 1,000 ML 125 ML IV CONT (16:31)
--- NOTE | 2022-10-17 17:59 | PC.NURSE ---
At 1401, patient had 14 sec pause, RN went to check on patient. Patient was symptomatic and stated I felt that! Dr. norwood notified and shown on bracelet and brooch maker. Verbal orders from Dr. Norwood to activate cathode washer for temporary pacemaker placement. After pacemaker place patient transferred to ICU. Will continue to monitor per ICU protocols.
--- NOTE | 2022-10-17 22:27 | ECHO_ITS ---
Patient Info Name: Bessie Chandra Age: 76 years : 1945 Gender: Female Ht: 62 in Wt: 199 lbs BSA: 2.03 m2 HR: 67 bpm BP: 146 / 59 mmHg Heart Rhythm: Sinus Rhythm Technical Quality: Fair Exam Date: 10/17/2022 6:37 AM Exam Location: [facility] Pulmonary Patient Status: Inpatient Admit Date: 10/16/2022 Staff Ordering Physician: Rebeka Freitas PA-C Glass Designer: Pretty Hearn RDCS Attending Provider: Kari Aviles MD Referring Physician: Fortino FREED; Exam Type: CA echo dop color flow w con Study Info Indications R55 - Syncope and collapse Complete two-dimensional, color flow and Doppler transthoracic echocardiogram is performed with contrast to opacify the left ventricle and to improve the deliniation of the left ventricle endocardial borders. Contrast/Agitated Saline Contrast/Ag. Saline: Definity Amount: 3.00 ml Administered By: Pretty Hearn [facility] Summary 1. Left ventricular chamber dimension is normal. 2. Left ventricular systolic function is normal, estimated at 65-70%. 3. There is severely increased left ventricular wall thickness. 4. The left ventricular diastolic function is grade I diastolic dysfunction. 5. Left atrial chamber dimension is mildly enlarged. 6. There is moderate aortic valve stenosis with a peak velocity of 373.63 cm/s, mean gradient of 24 mmHg, and aortic valve area of 1.50 cm2. 7. There is severe aortic valve calcification. 8. There is moderate mitral valve regurgitation. 9. The mitral valve annulus is severely calcified. 10. The mitral valve has thickened leaflets. 11. There is mild tricuspid valve regurgitation. 12. There is mild pulmonic regurgitation. Left Ventricle Left ventricular chamber dimension is normal. Left ventricular systolic function is normal, estimated at 65-70%. There is severely increased left ventricular wall thickness. The left ventricular diastolic function is grade I diastolic dysfunction. Right Ventricle Right ventricular chamber dimension is normal. Right ventricular systolic function is normal. Left Atria Left atrial chamber dimension is mildly enlarged. Right Atria Right atrial chamber dimension is normal. Atrial Septum Intact interatrial septum visualized by color flow imaging. Aortic Valve The aortic valve is probable trileaflet. There is moderate aortic valve stenosis with a peak velocity of 373.63 cm/s, mean gradient of 24 mmHg, and aortic valve area of 1.50 cm2. There is trace aortic valve regurgitation. There is severe aortic valve calcification. Pulmonic Valve The pulmonic valve is normal. There is no pulmonic valve stenosis. There is mild pulmonic regurgitation. Mitral Valve The mitral valve has thickened leaflets. There is no mitral valve stenosis. There is moderate mitral valve regurgitation. The mitral valve annulus is severely calcified. Tricuspid Valve The tricuspid valve leaflets are normal. There is no significant tricuspid valve stenosis. There is mild tricuspid valve regurgitation. No pulmonary hypertension, estimated pulmonary arterial systolic pressure is 34 mmHg. Pericardium/Pleural The pericardium appears normal. There is trivial pericardial effusion. Inferior Vena Cava Normal inferior vena cava with >50% collapse upon inspiration consistent with normal right atrial pressure, 5 mmHg. Aorta The aortic root size at the sinus of Valsalva is normal. Left Ventricular Outflow
[2022-10-18] VITALS (23 sets, daily range): BP systolic 100–162; BP diastolic 66–105; PULSE 71–88; RESP 18–25; TEMP 37.3–37.8; O2SAT 92–98
[2022-10-18] MEDS: FAMOTIDINE 20 MG/2 ML VIAL IV PUSH ×3 (01:02→22:37)
[2022-10-18 04:15] LABS: Basophils Percent Auto 0.4 % (0.2-1.2); Eosinophils Absolute Auto 0.2 K/mm3 (0-0.3); Eosinophils Percent Auto 1.7 % (0-4.4); Hematocrit 39.3 % (37.0-47.0); Hemoglobin 12.6 g/dL (12.0-15.0); Immature Granulocyte Absolute 0.04 K/mm3 (0.00-0.031); Immature Granulocyte Percent A 0.4 % (0-0.5); Lymphocytes Absolute Auto 1.83 K/mm3 (0.9-3.2); Lymphocytes Percent Auto 17.8 % (18.3-44.2); Mean Corpuscular HGB Conc 32.1 g/dl (32-36); Mean Corpuscular Hemoglobin 29.1 pg (26-34); Mean Corpuscular Volume 90.8 fl (80-100); Mean Platelet Volume 10.9 fl (7.4-10.4); Monocytes Absolute Auto 0.9 K/mm3 (0.1-0.6); Monocytes Percent Auto 8.6 % (2.6-8.5); Neutrophils Absolute Auto 7.3 K/mm3 (1.3-6.7); Neutrophils Percent Auto 71.1 % (45.5-73.1); Platelet Count Result 279 k/mm3 (150-375); Red Blood Count 4.33 M/mm3 (4.2-5.4); Red Cell Distribution Width 13.4 % (11.5-14.5); White Blood Count 10.3 K/mm3 (4.5-10.0)
[2022-10-18 04:29] LABS: Alanine Aminotransferase 25 U/L (6-35); Albumin Level 3.7 g/dL (3.5-5.1); Alkaline Phosphatase 107 U/L (38-126); Anion Gap 5 mmol/L (8-16); Aspartate Amino Transferase 26 U/L (14-36); Bilirubin,Total 0.5 mg/dL (0.2-1.3); Blood Urea Nitrogen 14 mg/dL (7-17); Calcium 8.6 mg/dL (8.4-10.2); Carbon Dioxide 29 mmol/L (22-30); Chloride 107 mmol/L (98-107); Estimated CRCL calculation 64 ml/min; Estimated Glomerular Filt Rate > 60; Glucose 110 mg/dL (65-110); Potassium 4.1 mmol/L (3.4-5.0); Sodium 141 mmol/L (137-145)
--- NOTE | 2022-10-18 08:31 | PM.PNCARD ---
Progress Note: A&P Assessment and Plan (1) Cardiac murmur: Code(s): R01.1 - Cardiac murmur, unspecified Status: Acute Assessment and Plan: Likely related to significant aortic stenosis. Moderate MR, moderate (2) Left bundle branch block: Code(s): I44.7 - Left bundle-branch block, unspecified Status: Acute Assessment and Plan: EF preserved. (3) Mixed hyperlipidemia: Code(s): E78.2 - Mixed hyperlipidemia Status: Acute Assessment and Plan: Continue statin (4) Syncope: Code(s): R55 - Syncope and collapse Status: Acute Assessment and Plan: Her syncope is likely secondary to asystole. She had another report will significant pause yesterday afternoon of over 15 seconds. therefore, the temporary a pacer was placed by Dr. Reyes successfully yesterday. She is currently completely V paced At 70. in preparation for ppm, hold enoxaparin tomorrow plan for dual chamber pacer tomorrow. Will discuss with Dr. Mcfarland (5) Elevated troponin: Code(s): R77.8 - Other specified abnormalities of plasma proteins Status: Acute Assessment and Plan: Not related to ACS Subjective Date/time seen: 10/18/22 08:31 Interval history: 76-year-old with syncope related to ventricular asystole Date of service 10/18/2022: Successful TV P yesterday. Currently V paced. No chest pain, shortness of breath Review of Systems Review of Systems: All systems reviewed & are unremarkable except as noted in HPI and below Constitutional: Constitutional: Denies body ache(s) and Denies excessive sweating Eyes: Eyes: Denies blurry vision ENT: Reports Normal hearing present Cardiovascular: Cardiovascular: Denies chest pain, Reports lightheadedness and Denies dyspnea Respiratory: Respiratory: Denies dyspnea Gastrointestinal: Gastrointestinal: Denies abdominal pain Genitourinary: Genitourinary: Denies hematuria Musculoskeletal: Musculoskeletal: Denies myalgias Integumentary/Breasts: Skin/Breast: Denies erythema and Denies rash Neurologic: Reports Normal hearing present and Denies Abnormal speech present Psychiatric: Psychiatric: Denies anxiety Endocrine: Endocrine: Denies excessive sweating Hematologic/Lymphatic: Hematologic/Lymphatic: Denies easy bleeding Allergic/Immunologic: Allergic/Immunologic: Denies GI upset with certain foods Exam Narrative: Awake alert oriented appears stated age Const: General: comfortable HENMT: Face/Nose/Sinus: Normal nares present Mouth: Yes moist mucous membranes Other: Small laceration noted on her nose Eyes: General: appearance normal, both eyes and all related structures Sclera: sclerae normal Neck: Neck: supple Thyroid: abnormal thyroid Carotids: bruit Chest: Other: No reproducible chest wall pain to palpation Resp: Effort & Inspection: normal respiratory effort Auscultation: clear to auscultation bilaterally Cardio: Rate: regular rate Heart sounds: Murmur heart sound present Other: 3-4/6 systolic ejection murmur at base. V paced. Right groin is stable GI: Inspection: non-distended Auscultation: normal bowel sounds Skin: General skin exam: normal color Neuro: Cranial nerves: Yes Normal hearing present Speech: normal speech and No Abnormal speech present Motor exam (neuro): 5/5 motor strength present throughout Sensory Exam: normal sensation Extrem: General: normal to inspection Psych: Mental Status: mental status grossly normal Objective Data Vital Signs Vital Signs: Vital Signs - 24 hr 10/17/22 08:50 10/17/22 08:50 10/17/22 10:00 Temperature Pulse Rate 63 Respiratory Rate Blood Pressure 126/61 146/59 H Pulse Oximetry Oxygen Delivery 10/17/22 12:00 10/17/22 12:00 10/17/22 14:00 Temperature 36.2 C L Pulse Rate 70 67 131 H Respiratory Rate 16 Blood Pressure 123/96 H Pulse Oximetry 95 Oxygen Delivery 10/17/22 12
[2022-10-18] MEDS: ASPIRIN 81 MG ENTERIC TABLET PO (08:39)
[2022-10-18] MEDS: ATORVASTATIN 10 MG TABLET PO (08:39)
[2022-10-18] MEDS: LORATADINE 10 MG TABLET PO (08:39)
[2022-10-18] MEDS: OMEGA 3 POLYUNSAT FATTY ACIDS 1 GM CAP PO (08:39)
[2022-10-18] MEDS: ENOXAPARIN 40 MG/0.4 ML SYRINGE SUB-Q (08:41)
[2022-10-18] MEDS: SIMETHICONE 80 MG TAB.CHEW PO ×2 (12:44→22:37)
--- NOTE | 2022-10-18 13:04 | WPDCNINT ---
Assessment and Plan Assessment and plan (1) Syncope: Code(s): R55 - Syncope and collapse Status: Acute Assessment and Plan: Secondary to sick sinus syndrome and sinus pauses Status post transvenous pacemaker placement Cardiology plans to place a permanent pacemaker in the morning Telemetry monitoring Normal TSH Currently asymptomatic (2) Aortic stenosis: Code(s): I35.0 - Nonrheumatic aortic (valve) stenosis Status: Acute Assessment and Plan: Will need further evaluation as an outpatient for definitive therapy if indicated (3) Cystic mass of pancreas: Code(s): K86.2 - Cyst of pancreas Status: Acute Assessment and Plan: Once permanent pacemakers placed, this can be followed up as an outpatient (4) Cholelithiasis: Code(s): K80.20 - Calculus of gallbladder without cholecystitis without obstruction Status: Acute Assessment and Plan: Cholelithiasis without any evidence of cholecystitis Again if this can be managed in outpatient once patient it issues are resolved (5) Abdominal discomfort: Code(s): R10.9 - Unspecified abdominal pain Status: Acute Assessment and Plan: CT scan reviewed and her symptoms could be secondary to cholelithiasis or GERD Patient started on Pepcid, Maalox and simethicone (6) Mixed hyperlipidemia: Code(s): E78.2 - Mixed hyperlipidemia Status: Acute Assessment and Plan: Lipitor Plan DVT prophylaxis -Lovenox Stress ulcer prophylaxis -currently on Pepcid Nutrition -heart healthy diet Code Status - Full Code Total Critical Care Time - 30minutes Due to a high probability of clinically significant, life threatening deterioration, the patient required my highest level of preparedness to intervene emergently and I personally spent this critical care time directly and personally managing the patient. This critical care time included obtaining a history; examining the patient; pulse oximetry; ordering and review of studies; arranging urgent treatment with development of a management plan; evaluation of patient's response to treatment; frequent reassessment; and discussions with other providers. It was exclusive of separately billable procedures and treating other patients and teaching time. Please see Assessment and Plan section and the rest of the note for further information on patient assessment and treatment Supervisor Frame Sample And Pattern Consult Note Consult date: 10/18/22 Reason for consult: Sick sinus syndrome HPI: Bessie Chandra is a 76 year old female 7with history of hyperlipidemia and allergies was admitted on 10/16 with several syncopal or near syncopal episodes starting 10 days prior to presentation. On presentation EKG showed sinus rhythm with left bundle branch block and a marked left axis deviation. On exam she had a pretty significant murmur consistent with aortic stenosis and with further questioning she has been told about that but she has not been referred to a tentering machine off bearer. Patient was admitted and Cardiology was consulted. Patient was placed on telemetry and echocardiogram was done. On telemetry patient has several incidents of asystole suggesting of sick sinus syndrome. EKG showed AFib with RVR. Echocardiogram showed Summary ? 1. Left ventricular chamber dimension is normal. ? 2. Left ventricular systolic function is normal, estimated at 65-70%. ? 3. There is severely increased left ventricular wall thickness. ? 4. The left ventricular diastolic function is grade I diastolic dysfunction. ? 5. Left atrial chamber dimension is mildly enlarged. ? 6. There is moderate aortic valve stenosis with a peak velocity of 373.63 cm/s, mean gradient of 24 mmHg, and aortic valve area of 1.50 cm2. ? 7. There is severe aortic valve calcification. ? 8. There is moderate mitral valve regurgitation. ? 9. The mitral valve annulus is severely calcified. ? 10. The mitral valve has thickened leaflets. ? 11. There is mild tricusp
[2022-10-18] MEDS: MAG HYDROX/AL HYDROX/SIMETH 30 ML UDC PO (13:56)
[2022-10-18] MEDS: MONTELUKAST SODIUM 10 MG TABLET PO (22:37)
[2022-10-18] MEDS: PROMETHAZINE HCL 25 MG/ML AMPUL 12.5 MG IV PUSH (23:45)
[2022-10-19] VITALS (22 sets, daily range): BP systolic 106–166; BP diastolic 65–91; PULSE 73–103; RESP 15–34; TEMP 37.3–38; O2SAT 90–100
[2022-10-19] MEDS: LEVALBUTEROL NEB 1.25 MG/3 ML 0.63 MG INHALATION (05:48)
[2022-10-19] MEDS: PROMETHAZINE HCL 25 MG/ML AMPUL 12.5 MG IV PUSH (08:27)
[2022-10-19] MEDS: DEXTROSE 5%/0.45% SOD CHL 1,000 ML 100 ML IV CONT ×2 (08:31→22:25)
[2022-10-19] MEDS: SODIUM CHLORIDE 0.45% 500 ML IV CONT (08:31)
[2022-10-19] MEDS: ASPIRIN 81 MG ENTERIC TABLET PO (08:50)
[2022-10-19] MEDS: ATORVASTATIN 10 MG TABLET PO (08:51)
[2022-10-19] MEDS: LORATADINE 10 MG TABLET PO (08:51)
[2022-10-19] MEDS: FAMOTIDINE 20 MG/2 ML VIAL IV PUSH ×2 (08:51→19:57)
[2022-10-19] MEDS: OMEGA 3 POLYUNSAT FATTY ACIDS 1 GM CAP PO (08:51)
[2022-10-19 09:01] LABS: Procalcitonin 0.1 ng/mL
--- NOTE | 2022-10-19 09:13 | WPDINTPN ---
Progress Note: A&P Assessment and Plan (1) Syncope: Code(s): R55 - Syncope and collapse Status: Acute Assessment and Plan: Secondary to sick sinus syndrome and sinus pauses Status post transvenous pacemaker placement Cardiology plans to place a permanent pacemaker in the morning Telemetry monitoring Normal TSH Currently asymptomatic (2) Delirium: Code(s): R41.0 - Disorientation, unspecified Status: Acute Assessment and Plan: Patient sundowning and had delirium overnight. She was given dose of Geodon I will use Precedex infusion tonight if patient still has a transvenous pacemaker (3) Aortic stenosis: Code(s): I35.0 - Nonrheumatic aortic (valve) stenosis Status: Acute Assessment and Plan: Will need further evaluation as an outpatient for definitive therapy if indicated (4) Fever: Code(s): R50.9 - Fever, unspecified Status: Acute Assessment and Plan: Low-grade fever. WBC normal Check chest x-ray UA Procalcitonin is low suggesting against systemic infection (5) Cystic mass of pancreas: Code(s): K86.2 - Cyst of pancreas Status: Acute Assessment and Plan: Once permanent pacemakers placed, this can be followed up as an outpatient. I have updated patient and her daughter of findings of CT scan and they are aware of these findings and need to follow-up as an outpatient (6) Oliguria: Code(s): R34 - Anuria and oliguria Status: Acute Assessment and Plan: Urine output on the lower side. Normal renal function Will start some IV fluids and monitor renal function urine output and electrolytes (7) Cholelithiasis: Code(s): K80.20 - Calculus of gallbladder without cholecystitis without obstruction Status: Acute Assessment and Plan: Cholelithiasis without any evidence of cholecystitis Again if this can be managed in outpatient once patient it issues are resolved. Again I have discussed these findings with patient and her daughter and they are aware of these findings and will need to follow-up as an outpatient if needed (8) Abdominal discomfort: Code(s): R10.9 - Unspecified abdominal pain Status: Acute Assessment and Plan: CT scan reviewed and her symptoms could be secondary to cholelithiasis or GERD Patient started on Pepcid, Maalox and simethicone Symptoms have improved (9) Mixed hyperlipidemia: Code(s): E78.2 - Mixed hyperlipidemia Status: Acute Assessment and Plan: Lipitor Plan DVT prophylaxis -Lovenox Stress ulcer prophylaxis -currently on Pepcid Nutrition -heart healthy diet Code Status - Full Code Total Critical Care Time - 32 minutes Due to a high probability of clinically significant, life threatening deterioration, the patient required my highest level of preparedness to intervene emergently and I personally spent this critical care time directly and personally managing the patient. This critical care time included obtaining a history; examining the patient; pulse oximetry; ordering and review of studies; arranging urgent treatment with development of a management plan; evaluation of patient's response to treatment; frequent reassessment; and discussions with other providers. It was exclusive of separately billable procedures and treating other patients and teaching time. Please see Assessment and Plan section and the rest of the note for further information on patient assessment and treatment Subjective Date/time seen: 10/19/22 Overnight events reviewed. Patient overnight became agitated and confused and was trying to pull on the transvenous pacemaker and IV lines. She was also yelling at ICU staff. She also had low-grade fever Continues to have transvenous pacemaker blood pressure is slightly elevated Geodon was given overnight and patient had to be restrained to protect the transfuse pacemaker When I went to see her this morning she was much mor
[2022-10-19 10:21] LABS: Appearance Urine Cloudy (Clear); Bilirubin Urine 2+ (Negative); Blood Urine 3+ (Negative); Color Urine Amber (Yellow); Glucose Urine UA Negative (Negative); Ketones Urine 1+ mg/dL (Negative); Leukocyte Esterase Ur Negative LEU/UL (Negative); Nitrate Urine Negative (Negative); Protein Urine 3+ mg/dL (Negative); Specific Grav Ur >= 1.030 (1.001-1.035); Urobilinogen Urine 0.2 mg/dL (<2.0); pH Urine 5.5 (5.0-9.0)
[2022-10-19 10:32] LABS: Add Urine Microscopic? YES; Mucus Urine Heavy /lpf; RBC Urine >75 /hpf (0-2); Squamous Epithelial Cell Urine Rare /hpf (Few)
--- NOTE | 2022-10-19 13:14 | WPDMODSED ---
Moderate Sedation Note-Pt Data Patient Data Diagnosis: High-grade AV block with long asystolic pauses syncope moderate aortic stenosis Present Complaint: intermittent syncope Procedure to be performed/Plan: placement of permanent pacemaker Allergies Allergy/AdvReac Type Severity Reaction Status Date / Time No Known Allergies Allergy Verified 10/16/22 22:49 Home Medications Medication Instructions Recorded Confirmed Type albuterol sulfate 90 mcg/actuation 1 inh inhalation Q4H PRN shortness 05/20/22 10/16/22 Rx aerosol inhaler of breath or wheezing #8.5 grams atorvastatin 10 mg tablet 10 mg PO DAILY #90 tabs 06/29/22 10/16/22 Rx montelukast 10 mg tablet 10 mg PO QHS #30 tabs 06/29/22 10/16/22 Rx Dulcolax (bisacodyl) 5 mg PO DAILY PRN Constipation 10/16/22 10/16/22 History [place] 3 Fish Oil 1,200 mg PO DAILY 10/16/22 10/16/22 History cetirizine 10 mg tablet (Zyrtec) 10 mg PO DAILY 10/16/22 10/16/22 History clindamycin phosphate 2 % vaginal 1 applic vaginal HS 10/16/22 10/16/22 History cream Current Medications: Active Medications Acetaminophen (Acetaminophen 325 Mg Tablet) 650 mg PO Q6H PRN PRN Reason: Mild Pain (1-3) or Fever Al Hydrox/Mg Hydrox/Simethicone (Mag Hydrox/Al Hydrox/Simeth 30 Ml Udc) 30 ml PO Q6H PRN PRN Reason: Indigestion Last Admin: 10/18/22 13:56 Dose: 30 ml Albuterol (Albuterol Sulfate (*Sp) Aerosol 1 Puff) 1 puff INHALATION Q4H PRN PRN Reason: shortness of breath or wheezing Aspirin (Aspirin 81 Mg Enteric Tablet) 81 mg PO QAM PENDING SALE TO [facility] Last Admin: 10/19/22 08:50 Dose: 81 mg Atorvastatin Calcium (Atorvastatin 10 Mg Tablet) 10 mg PO DAILY PENDING SALE TO [facility] Last Admin: 10/19/22 08:51 Dose: 10 mg Enoxaparin Sodium (Enoxaparin 40 Mg/0.4 Ml Syringe) 40 mg SUB-Q DAILY PENDING SALE TO [facility] Last Admin: 10/18/22 08:41 Dose: 40 mg Famotidine (Famotidine 20 Mg/2 Ml Vial) 20 mg IV PUSH Q12HR PENDING SALE TO [facility] Last Admin: 10/19/22 08:51 Dose: 20 mg Fish Oil ([place] 3 Polyunsat Fatty Acids 1 Gm Cap) [facility] [place] Last Admin: 10/19/22 08:51 Dose: 1 gm Acetaminophen (Ofirmev 650 Mg Ivpb) 650 mg in 65 mls @ 260 mls/hr IVPB Q4H PRN PRN Reason: Pain 1-6 or Fever Stop: 10/19/22 21:58 Dextrose/Sodium Chloride (Dextrose 5% Sodium Chloride 0.45%) 1,000 mls @ 100 mls/hr IV CONT .Q10H PENDING SALE TO [facility] Last Admin: 10/19/22 08:31 Dose: 100 mls/hr Levalbuterol HCl (Levalbuterol Neb 1.25 Mg/3 Ml) 0.63 mg INHALATION Q6HRT PRN PRN Reason: Wheezing Last Admin: 10/19/22 05:48 Dose: 0.63 mg Loratadine (Loratadine 10 Mg Tablet) 10 mg PO [facility] Last Admin: 10/19/22 08:51 Dose: 10 mg Montelukast Sodium (Montelukast Sodium 10 Mg Tablet) 10 mg PO QHS [facility] Last Admin: 10/18/22 22:37 Dose: 10 mg Morphine Sulfate (Morphine Sulfate (*Crx) 4 Mg/Ml Inj) 4 mg IV PUSH Q2H PRN PRN Reason: Pain Rated 7-10 Non-Formulary Medication (Clindamycin Phosphate) 1 applic [facility] Stop: 11/16/22 20:59 Simethicone (Simethicone 80 Mg Tab.Chew) 80 mg PO QID PRN PRN Reason: Abdominal Cramping Last Admin: 10/18/22 22:37 Dose: 80 mg Sedation/Anesthesia: No previous sedation/anesthesia problems (including family history). [facility] Past Medical History Medical History Mixed hyperlipidemia Seasonal allergies Surgical History Surgical History History of carpal tunnel release History of cataract extraction Family History Family History Mother Hx of cancer of uterus Hypotension Father Heart disease Diabetes mellitus Hypertension Sibling Asthma Hypotension Diabetes mellitus Daughter Hypertension Son Hypertension Social History Social History Social History: Surrogate medical decision maker: Albino Holderer, spouse. Code status: Full code. Smoking status: Never smoker Second hand tobacco smoke exp
--- NOTE | 2022-10-19 13:59 | PM.IMPN ---
Progress Note: A&P Assessment and Plan (1) Syncope: Code(s): R55 - Syncope and collapse Status: Acute Assessment and Plan: Secondary to sick sinus syndrome and sinus pauses Status post transvenous pacemaker placement in ICU Pt going for pacemaker insertion under cardiology today (2) Delirium: Code(s): R41.0 - Disorientation, unspecified Status: Acute Assessment and Plan: Patient sundowning and had delirium overnight. She was given dose of Geodon by the bedside very supportive (3) Aortic stenosis: Code(s): I35.0 - Nonrheumatic aortic (valve) stenosis Status: Acute Assessment and Plan: Will need further evaluation as an outpatient for definitive therapy if indicated (4) Fever: Code(s): R50.9 - Fever, unspecified Status: Acute Assessment and Plan: Low-grade fever today CXr shows Patchy bilateral airspace opacities Blood cultures start Iv rocephin (5) Cystic mass of pancreas: Code(s): K86.2 - Cyst of pancreas Status: Acute Assessment and Plan: follow-up as an outpatient (6) Oliguria: Code(s): R34 - Anuria and oliguria Status: Acute Assessment and Plan: STart IV fluids and monitor renal function urine output and electrolytes (7) Cholelithiasis: Code(s): K80.20 - Calculus of gallbladder without cholecystitis without obstruction Status: Acute Assessment and Plan: Cholelithiasis without any evidence of cholecystitis (8) Abdominal discomfort: Code(s): R10.9 - Unspecified abdominal pain Status: Acute Assessment and Plan: CT scan reviewed and her symptoms could be secondary to cholelithiasis or GERD Patient started on Pepcid, Maalox and simethicone (9) Mixed hyperlipidemia: Code(s): E78.2 - Mixed hyperlipidemia Status: Acute Assessment and Plan: Lipitor Subjective Date/time seen: 10/19/22 13:59 6-year-old female with history of hyperlipidemia and allergies who presented to the emergency department from home for evaluation after syncopal episode. This morning she went outside to feed the birds and when she came back in she had a brief episode where she felt ?woozy and dizzy? and she had a brief syncopal episode, striking her head on the kitchen table. She must have come to quite quickly as her legs were still holding her up somewhat though a majority of her weight was on the table. With further questioning she admits that she has had several syncopal or near syncopal episodes this week and with each episode she has a very brief prodrome with lightheadedness, weakness, nausea, and ?feeling as though my head is on a agndf-wi-irply.? Several days ago she fell back and hit her head on the wall. Pt having temporary pacing in ICU going for pacemaker insertion today under cardiology Review of Systems Review of Systems: No specific complaints apart from syncopal episodes Exam Narrative: General: Pt is alert awake Lungs/Chest: Trachea central Clear BS B/L, No crackles or wheezing. Cardiac: RRR. with pacer pads Circulation: Pedal pulses are intact and symmetrical. Abdomen: Normal bowel sounds.. Soft. NT. ND. Extremities: No clubbing, cyanosis or edema. Warm right femoral area has a transvenous pacemaker : Lopez in place Neurologic: Follows commands. Moves all 4 extremities PERRL AO x3 Objective Data Vital Signs Vital Signs: Vital Signs - 24 hr 10/18/22 14:00 10/18/22 14:00 10/18/22 15:00 Temperature 37.5 C 37.5 C Pulse Rate 71 71 71 Respiratory Rate 21 H 21 H Blood Pressure 117/92 H 122/84 Pulse Oximetry 97 96 Oxygen Delivery Oxygen Flow Rate 10/18/22 16:00 10/18/22 16:00 10/18/22 17:00 Temperature 37.6 C 37.6 C Pulse Rate 71 71 71 Respiratory Rate 20 21 H Blood Pressure 100/66 102/75 Pulse Oximetry 98 98 Oxygen Delivery Oxygen Flow Rate 10/18/22 18:00 10/18/22 18:00 10/18/22 20:04 Te
--- NOTE | 2022-10-19 14:00 | P.PCNCC_ITS ---
Cardiac Cath Procedure Note Date of procedure:: 10/19/22 Performing physician:: Paxton Mcfarland MD Indication:: paroxysmal atrial flutter with high-grade AV block Brief clinical history:: this is a 76-year-old woman without previous cardiac history she has left bundle branch block and moderate aortic stenosis. She presented the hospital with syncope and has been noted on telemetry to have long asystolic pauses in the setting of atrial flutter with left bundle branch block. Temporary pacemaker was placed over the weekend permanent pacemaker was scheduled for this afternoon Procedure Procedure performed:: attempted permanent pacemaker implant Sedation/Medication given:: no additional sedation Access site:: left anterior chest wall Estimated blood loss:: 15-20 cc Procedure note:: the patient was brought to the cardiac catheterization lab where the left anterior chest wall was prepped and draped in the usual fashion. Anesthesia was provided with 1% lidocaine inferior to the clavicle. An incision was then made from the midclavicular line to the deltopectoral groove and sharp and blunt dissection was used to separate the subcutaneous fat to the level of the prepectoral fascia. A pacemaker pocket was then created inferior to the incision using using a blunt dissection and a antibiotic soaked sponge was placed into the pocket. Electrocautery was used to provide cutaneous hemostasis. Attempts were then main to gain venous access in the left subclavian vein. At this point of the procedure the patient began to scream extremely loudly and uncontrollably and thrash about on the table and was insistent that the procedure be abandoned. It was my opinion that continuing to attempt to gain vascular access in this situation was clearly unsafe and the procedure was abandoned at that time. The retained sponge was removed the pocket pocket was then closed in layers using 3-0 Vicryl in an interrupted fashion for the subcutaneous tissue and 4-0 Vicryl in a running subcuticular fashion for the skin. An Aquacel dressing was placed over the incision. She was taken back to the ICU for further management. Findings:: As above Conclusion:: unsuccessful but uncomplicated attempt at permanent pacemaker implantation as the patient became agitated combative and insisted that the procedure be abandoned. Paxton Mcfarland MD [facility]
--- NOTE | 2022-10-19 14:36 | PM.EVENT ---
Event Note Event Note Event Note: Patient's of permanent pacemaker placement was aborted as patient was agitated uncooperative and combative with the staff. Patient has now arrived to the ICU and I spoke to her in presence of her . Patient is AO x3, she moves all 4 extremities, follows commands with all 4 extremities,PERRL, cranial nerves 2-12 are intact and has no focal neurological deficit. She however is confused and does goes tangential conversation and starts talking about other irrelevant things. She gets agitated easily on repeated questioning. She does not feel she has any problems. I spoke to her in detail and he admitted that since April of last year she has been having trouble with memory and forgetting things. She has had episodes where she has seen and heard things that are not there. He has noticed that she gets confused occasionally at home. She has not been evaluated for dementia as per him and he does not know of any family history of dementia. I explained him the events of cardiac catheterization lab and further options. He will discuss with promotions executive producer regarding further options. Her head CT on admission was negative. I will check MRI of the brain and consult neurology for their opinion. She may need to be on a Precedex drip at night for delirium in order to keep the transvenous pacemaker intact. Her UA came back negative for any signs of infection and I suspect her fever is from atelectasis. Her procalcitonin level was low. Have reviewed chest x-ray which is abnormal and could be secondary to atelectasis. Patient is completely asymptomatic from respiratory standpoint and denies any cough fever or shortness of breath. She is not on any antibiotics at this time will be monitor. I will obtain blood culture if she spikes fever
--- NOTE | 2022-10-19 15:36 | WPDNEURCNPN ---
Consult date: 10/19/22 HPI: Bessie Chandra is a 76 year old female Admitted to the hospital through the emergency room where she presented with syncopal episode and a statement was made she has been having daily syncope for the last week ,on the day of admission she went to feed her birds on a screened porch , was handing them black sunflower seeds when she woke up on her stomach on the ground and hit her face on the porch table ,she was complaining of pain over the nasal bridge ,patient was not taking any blood thinners but she did become unconscious and did not know why she did ,did not experience any racing heart or spinning dizziness or vision going blurred prior to this episode. Patient does have ongoing history of mixed hyperlipidemia and is a current alcohol intaker only socially and seldom but never substance user and not a smoker, initial evaluation in the emergency room revealed only tenderness over the nasal bridge with an abrasion but nonfocal neurological examination ,vital signs were stable with blood pressure being 168/117 CBC was normal, BMP was normal, and troponin was 0.041 CT scan of the head revealed no bleed or territorial stroke, chest x-ray was negative EKG was normal without atrial fibrillation, carotid studies are normal, patient has undergone cardiac evaluation documented cardiac murmur left bundle branch block her typical episode was attributed to asystole, she was noted to have pause night before the cardiology consultation, she was also suspected to have aortic stenosis for which echocardiogram was reviewed which revealed mildly enlarged left atrial chamber dimension moderate aortic valvular stenosis with severe aortic valve calcification and moderate mitral valve regurgitation which was also severely calcified with thickened leaflets also mild tricuspid regurgitation and pulmonic regurgitation, patient has been seen by the cardiac team were suspecting the syncope secondary to asystole with significant pauses, day before more than 15seconds and the temporary pacemaker was placed in, her recent CT scan of the abdomen and pelvis with contrast as documented cholelithiasis without evidence of cholecystitis and 1.4cm cystic lesion of the pancreas. Neurology consultation has been obtained to evaluate her mental status PMFSH Past Medical History Medical History Mixed hyperlipidemia Seasonal allergies Surgical History Surgical History History of carpal tunnel release History of cataract extraction Family History Family History Mother Hx of cancer of uterus Hypotension Father Heart disease Diabetes mellitus Hypertension Sibling Asthma Hypotension Diabetes mellitus Daughter Hypertension Son Hypertension Social History Social History Social History: Surrogate medical decision maker: Albino Chandra, spouse. Code status: Full code. Smoking status: Never smoker Second hand tobacco smoke exposure: No Alcohol intake: current Alcohol use details: Rare alcohol use in moderation. Substance use: never Substance use type: does not use Lack of Transportation: No Lack of Food: Never True Current Housing: I Have Housing Concerned About Future Housing: No Difficulty Paying Gas/Electric Bills: No Difficulty Paying for Meds: No Currently Unemployed: No Education: Master's Degree or Higher Difficulty w/ Childcare or Family Care: No Living arrangements: with family Additional living arrangements comments: Lives in [place] with spouse. 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 Spiritual care concerns: No Agree to blood products: Yes Meds Home Medications and Allergies Home Medications Medication Instructions Recorded Confirmed Type albu
[2022-10-19] MEDS: ACETAMINOPHEN 325 MG TABLET 650 MG PO (19:56)
[2022-10-19] MEDS: MONTELUKAST SODIUM 10 MG TABLET PO (19:57)
[2022-10-20] VITALS (23 sets, daily range): BP systolic 91–139; BP diastolic 57–103; PULSE 73–150; RESP 14–28; TEMP 37.1–37.7; O2SAT 93–99
[2022-10-20] MEDS: DEXTROSE 5%/0.45% SOD CHL 1,000 ML 100 ML IV CONT ×2 (08:57→18:17)
[2022-10-20] MEDS: ASPIRIN 81 MG ENTERIC TABLET PO (09:00)
[2022-10-20] MEDS: ENOXAPARIN 40 MG/0.4 ML SYRINGE SUB-Q (09:00)
[2022-10-20] MEDS: ATORVASTATIN 10 MG TABLET PO (09:00)
[2022-10-20] MEDS: FAMOTIDINE 20 MG/2 ML VIAL IV PUSH ×2 (09:01→20:00)
[2022-10-20] MEDS: LORATADINE 10 MG TABLET PO (09:01)
[2022-10-20] MEDS: OMEGA 3 POLYUNSAT FATTY ACIDS 1 GM CAP PO (09:01)
--- NOTE | 2022-10-20 09:12 | WPDINTPN ---
Progress Note: A&P Assessment and Plan (1) Syncope: Code(s): R55 - Syncope and collapse Status: Acute Assessment and Plan: Secondary to sick sinus syndrome and sinus pauses -10/17 symptomatic sinus pauses status post post transvenous pacemaker placement -10/19: Patient was taken to the livestock laborer for permanent pacemaker placement, she got agitated and combative and the procedure was abandoned she was brought back to the ICU. -continue Telemetry monitoring -Normal TSH -Currently asymptomatic (2) Delirium: Code(s): R41.0 - Disorientation, unspecified Status: Acute Assessment and Plan: 10/18Patient and had delirium overnight. She was given dose of Geodon -will use Precedex infusion if required as patient still has a transvenous pacemaker (3) Aortic stenosis: Code(s): I35.0 - Nonrheumatic aortic (valve) stenosis Status: Acute Assessment and Plan: 10/17/2022 echocardiogram showed EF of 65-70%, severely increased LV wall thickness, grade 1 diastolic dysfunction, moderate aortic valve stenosis with a valve area of 1.50 cm2, severe aortic valve calcification, moderate mitral valve regurgitation, mitral valve annulus severely calcified, mild tricuspid valve regurg and mild pulmonic valve regurg. -Will need further evaluation as an outpatient for definitive therapy if indicated (4) Fever: Code(s): R50.9 - Fever, unspecified Status: Acute Assessment and Plan: Low-grade fever. -will repeat labs -UA is within normal limits -chest x-ray shows patchy bilateral airspace opacities consistent with atelectasis versus pneumonia, gaseous distension of the stomach -Procalcitonin is low suggesting against systemic infection (5) Cystic mass of pancreas: Code(s): K86.2 - Cyst of pancreas Status: Acute Assessment and Plan: 10/17: CT scan of the abdomen showed cholelithiasis without CT evidence of cholecystitis, 1.4 cm cystic lesion of the pancreas - Once permanent pacemakers placed, this can be followed up as an outpatient. Patient's daughter has been updated on the findings of the CT scan and they are aware of these findings and need to follow-up as an outpatient (6) Oliguria: Code(s): R34 - Anuria and oliguria Status: Acute Assessment and Plan: Urine output on the lower side. Normal renal function Will start some IV fluids and monitor renal function urine output and electrolytes -urine output has improved overnight, -will recheck lab (7) Cholelithiasis: Code(s): K80.20 - Calculus of gallbladder without cholecystitis without obstruction Status: Acute Assessment and Plan: Cholelithiasis without any evidence of cholecystitis as seen on CD of the pelvis as above -Again if this can be managed in outpatient once patient it issues are resolved. These findings were discussed with patient's daughter and they are aware of these findings and will need to follow-up as an outpatient if needed (8) Abdominal discomfort: Code(s): R10.9 - Unspecified abdominal pain Status: Acute Assessment and Plan: CT scan reviewed and her symptoms could be secondary to cholelithiasis or GERD Patient started on Pepcid, Maalox and simethicone Symptoms have improved (9) Mixed hyperlipidemia: Code(s): E78.2 - Mixed hyperlipidemia Status: Acute Assessment and Plan: Lipitor Plan DVT prophylaxis -Lovenox Stress ulcer prophylaxis -currently on Pepcid Nutrition -heart healthy diet Code Status - Full Code Total Critical Care Time - 33 minutes Due to a high probability of clinically significant, life threatening deterioration, the patient required my highest level of preparedness to intervene emergently and I personally spent this critical care time directly and personally managing the patient. This critical care time included obtaining a history; examining the patient; pulse oximetry; ordering and review
[2022-10-20 10:04] LABS: Basophils Absolute Auto 0.1 K/mm3 (0.0-0.1); Basophils Percent Auto 0.5 % (0.2-1.2); Eosinophils Absolute Auto 0.5 K/mm3 (0-0.3); Eosinophils Percent Auto 3.9 % (0-4.4); Hematocrit 42.7 % (37.0-47.0); Hemoglobin 13.5 g/dL (12.0-15.0); Immature Granulocyte Absolute 0.04 K/mm3 (0.00-0.031); Immature Granulocyte Percent A 0.3 % (0-0.5); Lymphocytes Absolute Auto 1.72 K/mm3 (0.9-3.2); Lymphocytes Percent Auto 13.6 % (18.3-44.2); Mean Corpuscular HGB Conc 31.6 g/dl (32-36); Mean Corpuscular Hemoglobin 28.8 pg (26-34); Monocytes Percent Auto 8.2 % (2.6-8.5); Neutrophils Absolute Auto 9.3 K/mm3 (1.3-6.7); Neutrophils Percent Auto 73.5 % (45.5-73.1); Platelet Count Result 271 k/mm3 (150-375); Red Blood Count 4.69 M/mm3 (4.2-5.4); Red Cell Distribution Width 13.7 % (11.5-14.5); White Blood Count 12.6 K/mm3 (4.5-10.0)
[2022-10-20 10:15] LABS: Lactic Acid Reflex 2.2 mmol/L (0.7-2.0); Magnesium 2.2 mg/dL (1.6-2.3); Phosphorus 2.7 mg/dL (2.5-4.5)
[2022-10-20 10:18] LABS: Alanine Aminotransferase 19 U/L (6-35); Albumin Level 3.5 g/dL (3.5-5.1); Alkaline Phosphatase 82 U/L (38-126); Anion Gap 6 mmol/L (8-16); Aspartate Amino Transferase 23 U/L (14-36); Bilirubin,Total 0.7 mg/dL (0.2-1.3); Blood Urea Nitrogen 13 mg/dL (7-17); Calcium 8.1 mg/dL (8.4-10.2); Carbon Dioxide 29 mmol/L (22-30); Chloride 105 mmol/L (98-107); Estimated CRCL calculation 67 ml/min; Estimated Glomerular Filt Rate > 60; Glucose 126 mg/dL (65-110); Potassium 3.5 mmol/L (3.4-5.0); Sodium 140 mmol/L (137-145)
[2022-10-20 13:00] LABS: Reflex Lactic Acid Yes or No Add Lactic
[2022-10-20] MEDS: ACETAMINOPHEN 325 MG TABLET 650 MG PO (13:25)
[2022-10-20 13:40] LABS: Lactic Acid 1.7 mmol/L (0.7-2.0)
[2022-10-20] MEDS: MAG HYDROX/AL HYDROX/SIMETH 30 ML UDC PO (13:45)
[2022-10-20] MEDS: SIMETHICONE 80 MG TAB.CHEW PO (15:06)
[2022-10-20] MEDS: polyethylene glycoL 3350 17 GM POWD.PACK PO (15:34)
[2022-10-20] MEDS: MORPHINE SULFATE (*CRX) 4 MG/ML INJ IV PUSH (15:35)
--- NOTE | 2022-10-20 15:51 | PM.PNCARD ---
Progress Note: A&P Assessment and Plan (1) Cardiac murmur: Code(s): R01.1 - Cardiac murmur, unspecified Status: Acute Assessment and Plan: Likely related to significant aortic stenosis. Moderate MR, moderate (2) Left bundle branch block: Code(s): I44.7 - Left bundle-branch block, unspecified Status: Acute Assessment and Plan: EF preserved. (3) Mixed hyperlipidemia: Code(s): E78.2 - Mixed hyperlipidemia Status: Acute Assessment and Plan: Continue statin (4) Syncope: Code(s): R55 - Syncope and collapse Status: Acute Assessment and Plan: Her syncope is likely secondary to asystole. She had another report will significant pause yesterday afternoon of over 15 seconds. therefore, the temporary a pacer was placed by Dr. Dong over the weekend. She is currently completely V paced At 70. Was taken to the brick and blocker aid labor yesterday for insertion of PPM but case was aborted due to patient becoming agitated and combative. Plan for PPM insertion on with the assistance of anesthesia. Discussed plan with Dr. Carroll who will be performing pacemaker insertion. In preparation of PPM placement, hold enoxaparin on morning of 10/22. (5) Elevated troponin: Code(s): R77.8 - Other specified abnormalities of plasma proteins Status: Acute Assessment and Plan: Not related to ACS Subjective Date/time seen: 10/20/22 11:31 Cardiology follow up for syncope She is alert this morning not agitated or combative but somewhat confused/forgetful. She answers questions appropriately but cannot remember details of yesterday's events in the [facility] and [facility] aid labor. She does not have any complaints at the time of my visit. she is 100% paced with transvenous pacer. Review of Systems Review of Systems: All systems reviewed & are unremarkable except as noted in HPI and below Constitutional: Constitutional: Denies body ache(s) and Denies excessive sweating Eyes: Eyes: Denies blurry vision ENT: Reports Normal hearing present Cardiovascular: Cardiovascular: Denies chest pain, Reports lightheadedness and Denies dyspnea Respiratory: Respiratory: Denies dyspnea Gastrointestinal: Gastrointestinal: Denies abdominal pain Genitourinary: Genitourinary: Denies hematuria Musculoskeletal: Musculoskeletal: Denies myalgias Integumentary/Breasts: Skin/Breast: Denies erythema and Denies rash Neurologic: Reports Normal hearing present and Denies Abnormal speech present Psychiatric: Psychiatric: Denies anxiety Endocrine: Endocrine: Denies excessive sweating Hematologic/Lymphatic: Hematologic/Lymphatic: Denies easy bleeding Allergic/Immunologic: Allergic/Immunologic: Denies GI upset with certain foods Exam Narrative: Awake, alert, and oriented. Const: General: comfortable HENMT: Face/Nose/Sinus: Normal nares present Mouth: Yes moist mucous membranes Other: Small laceration noted on her nose Eyes: General: appearance normal, both eyes and all related structures Sclera: sclerae normal Neck: Neck: supple Thyroid: abnormal thyroid Carotids: bruit Resp: Effort & Inspection: normal respiratory effort Auscultation: clear to auscultation bilaterally Cardio: Rate: regular rate Rhythm: regular rhythm Heart sounds: Murmur heart sound present Other: 3-4/6 systolic ejection murmur at base. V paced. Right groin is stable GI: Inspection: non-distended Auscultation: normal bowel sounds Skin: General skin exam: normal color Neuro: Cranial nerves: Yes Normal hearing present Speech: normal speech and No Abnormal speech present Motor exam (neuro): 5/5 motor strength present throughout Sensory Exam: normal sensation Extrem: General: normal to inspection Other: distal pulses intact Psych: Mental Status: mental status grossly normal Objective Data Vital Signs Vital Signs: Vital Signs - 24 hr 10/19/22 16:00 10/19/22 16:00 10/19/22 16:00
[2022-10-20] MEDS: ONDANSETRON INJ 4 MG/2 ML VIAL IV PUSH (18:06)
[2022-10-20 18:25] LABS: Folic Acid 4.2 ng/mL (2.76->20)
--- NOTE | 2022-10-20 21:49 | ECG_ITS ---
Measurements Intervals [place] Rate: 124 P: [place]: 0 QRS: -36 QRSD: 149 T: 138 QT: 380 QTc: 547 Interpretive Statements ATRIAL FIBRILLATION WITH RAPID VENTRICULAR RESPONSE WITH PREMATURE VENTRICULAR CONTRACTIONS VERSUS ABERRANT CONDUCTION AND INTERMITTENT ELECTRONIC VENTRICULAR PACEMAKER LEFT BUNDLE BRANCH BLOCK ABNORMAL ECG COMPARED TO ECG 10/17/2022 13:05:18 NO SIGNIFICANT CHANGES Electronically Signed On 10-21-2022 15:08:28 IN [employer] by Juancho Yates M.D.
--- NOTE | 2022-10-20 22:00 | PC.NURSE ---
Patient appears to be in a fast ventricular rate. EKG obtained and relayed to Dr. Valenzuela. Start Amiodarone bolus followed by protocol. Continue to monitor.
[2022-10-20] MEDS: AMIODARONE 150 MG/D5W 100 ML 150 MG/100 ML BAG 600 MG IV CONT (22:05)
[2022-10-20] MEDS: AMIODARONE 360 MG/D5W 200 ML 360 MG/200 ML BAG 33.33 MG IV CONT (22:05)
[2022-10-21] VITALS (22 sets, daily range): BP systolic 91–138; BP diastolic 61–96; PULSE 61–80; RESP 18–25; TEMP 36.9–37.6; O2SAT 92–99
--- NOTE | 2022-10-21 02:05 | PC.NURSE ---
Patient appeared to pull NG out while in sleep. Patient is currently Alert and Oriented x3. Attempts were made for another NG, however patient is refusing at this time. Vital signs are stable ,continue to monitor. Patient informed risks of not having NG tube and benefits, patient is aware and still would not like one at this time. Continue to monitor.
[2022-10-21] MEDS: AMIODARONE 360 MG/D5W 200 ML 360 MG/200 ML BAG 16.67 MG IV CONT (03:02)
[2022-10-21 03:44] LABS: Basophils Absolute Auto 0.1 K/mm3 (0.0-0.1); Basophils Percent Auto 0.5 % (0.2-1.2); Eosinophils Absolute Auto 0.3 K/mm3 (0-0.3); Eosinophils Percent Auto 2.5 % (0-4.4); Hematocrit 39.2 % (37.0-47.0); Hemoglobin 12.4 g/dL (12.0-15.0); Immature Granulocyte Absolute 0.06 K/mm3 (0.00-0.031); Immature Granulocyte Percent A 0.5 % (0-0.5); Lymphocytes Absolute Auto 1.93 K/mm3 (0.9-3.2); Lymphocytes Percent Auto 15.1 % (18.3-44.2); Mean Corpuscular HGB Conc 31.6 g/dl (32-36); Mean Corpuscular Hemoglobin 29.3 pg (26-34); Mean Corpuscular Volume 92.7 fl (80-100); Mean Platelet Volume 10.9 fl (7.4-10.4); Monocytes Absolute Auto 1.3 K/mm3 (0.1-0.6); Monocytes Percent Auto 10.3 % (2.6-8.5); Neutrophils Absolute Auto 9.1 K/mm3 (1.3-6.7); Neutrophils Percent Auto 71.1 % (45.5-73.1); Platelet Count Result 244 k/mm3 (150-375); Red Blood Count 4.23 M/mm3 (4.2-5.4); Red Cell Distribution Width 13.5 % (11.5-14.5); White Blood Count 12.8 K/mm3 (4.5-10.0)
[2022-10-21 03:55] LABS: INR 1.1; Partial Thromboplastin Time 30.5 SECONDS (22.3-36.8); Prothrombin Time 14.1 Seconds (11.1-14.7)
[2022-10-21 03:58] LABS: Alanine Aminotransferase 17 U/L (6-35); Albumin Level 3.4 g/dL (3.5-5.1); Alkaline Phosphatase 79 U/L (38-126); Anion Gap 3 mmol/L (8-16); Aspartate Amino Transferase 22 U/L (14-36); Bilirubin,Total 0.5 mg/dL (0.2-1.3); Blood Urea Nitrogen 12 mg/dL (7-17); Carbon Dioxide 29 mmol/L (22-30); Chloride 101 mmol/L (98-107); Estimated CRCL calculation 59 ml/min; Estimated Glomerular Filt Rate > 60; Glucose 116 mg/dL (65-110); Magnesium 2.2 mg/dL (1.6-2.3); Phosphorus 3.6 mg/dL (2.5-4.5); Potassium 3.6 mmol/L (3.4-5.0); Sodium 133 mmol/L (137-145)
[2022-10-21 04:35] LABS: Procalcitonin 0.1 ng/mL
[2022-10-21] MEDS: DEXTROSE 5%/0.45% SOD CHL 1,000 ML 100 ML IV CONT ×2 (06:23→16:25)
[2022-10-21] MEDS: FAMOTIDINE 20 MG/2 ML VIAL IV PUSH ×2 (08:41→20:57)
[2022-10-21] MEDS: ENOXAPARIN 40 MG/0.4 ML SYRINGE SUB-Q (08:41)
[2022-10-21] MEDS: METOCLOPRAMIDE HCL INJ 10 MG/2 ML VIAL IV PUSH ×3 (11:01→23:44)
--- NOTE | 2022-10-21 11:06 | WPDINTPN ---
Progress Note: A&P Assessment and Plan (1) Syncope: Code(s): R55 - Syncope and collapse Status: Acute Assessment and Plan: Secondary to sick sinus syndrome and sinus pauses -10/17 symptomatic sinus pauses status post post transvenous pacemaker placement -10/19: Patient was taken to the laboratory apparatus glass blower for permanent pacemaker placement, she got agitated and combative and the procedure was abandoned she was brought back to the ICU. -continue Telemetry monitoring -Normal TSH -Currently asymptomatic -permanent pacemaker has been scheduled for 10/22/[address] Carroll -[place] on hold after midnight procedure tomorrow -INR is 1.1 on 10/21/2022 -patient had an episode of AFib RVR overnight requiring amiodarone, which has been discontinued as patient is back in paced rhythm (2) Delirium: Code(s): R41.0 - Disorientation, unspecified Status: Acute Assessment and Plan: 10/18 Patient sundowning and had delirium overnight. She was given dose of Geodon -will use Precedex infusion if required as patient still has a transvenous pacemaker -patient does get confused overnight but this morning she has been alert, awake, oriented x3 (3) Aortic stenosis: Code(s): I35.0 - Nonrheumatic aortic (valve) stenosis Status: Acute Assessment and Plan: 10/17/2022 echocardiogram showed EF of 65-70%, severely increased LV wall thickness, grade 1 diastolic dysfunction, moderate aortic valve stenosis with a valve area of 1.50 cm2, severe aortic valve calcification, moderate mitral valve regurgitation, mitral valve annulus severely calcified, mild tricuspid valve regurg and mild pulmonic valve regurg. -Will need further evaluation as an outpatient for definitive therapy if indicated (4) Fever: Code(s): R50.9 - Fever, unspecified Status: Acute Assessment and Plan: Low-grade fever. Which have resolved -UA is within normal limits -chest x-ray shows patchy bilateral airspace opacities consistent with atelectasis versus pneumonia, gaseous distension of the stomach -Procalcitonin is very low suggesting against systemic infection (5) Cystic mass of pancreas: Code(s): K86.2 - Cyst of pancreas Status: Acute Assessment and Plan: 10/17: CT scan of the abdomen showed cholelithiasis without CT evidence of cholecystitis, 1.4 cm cystic lesion of the pancreas - Once permanent pacemakers placed, this can be followed up as an outpatient. Patient's daughter has been updated on the findings of the CT scan and they are aware of these findings and need to follow-up as an outpatient (6) Oliguria: Code(s): R34 - Anuria and oliguria Status: Acute Assessment and Plan: Urine output on the lower side. Normal renal function Will start some IV fluids and monitor renal function urine output and electrolytes -urine output has improved overnight, -will recheck lab (7) Cholelithiasis: Code(s): K80.20 - Calculus of gallbladder without cholecystitis without obstruction Status: Acute Assessment and Plan: Cholelithiasis without any evidence of cholecystitis as seen on CD of the pelvis as above -Again if this can be managed in outpatient once patient it issues are resolved. These findings were discussed with patient's daughter and they are aware of these findings and will need to follow-up as an outpatient if needed (8) Abdominal discomfort: Code(s): R10.9 - Unspecified abdominal pain Status: Acute Assessment and Plan: CT scan reviewed and her symptoms could be secondary to cholelithiasis or GERD Patient started on Pepcid, Maalox and simethicone 10/20/2022: Obstructive series showed distended stomach along with air-filled bowel loops likely most likely colonic. Patient was nauseous and complaining for abdominal pain, NG tube was inserted with significant gastric drainage with improvement in abdominal pain, nausea and abdominal distention. -patient did pull out
--- NOTE | 2022-10-21 11:07 | WPDNEUROLOGY ---
Neurology EEG Report General Information Date of Study: 10/21/22 TEST eeg CONDITION OF RECORDING Awake and drowsy EEG NUMBER [id number] CLINICAL HISTORY Patient has been experiencing episode ache confusion. EEG DESCRIPTION whole record consists of low-voltage 15 to 21 hertz per 2nd beta admixed with poorly organized low voltage 9 to 11 hertz per 2nd alpha posteriorly but with poor roger posterior gradient and also mixed with multiple movement artifacts. Intermittent low to medium voltage 5 to 7 hertz per 2nd theta activity seen admixed with 3 to 4 hertz per 2nd delta activity. Bilateral symmetrical sleep activity seen during sleep. Hyperventilation not done. Photic stimulation not done. Non paroxysmal. Nonfocal. Non lateralizing. IMPRESSION Abnormal record due to the absence of a normal background rhythm and also due to the presence of excessive amount of theta and delta activity. These abnormalities are suggestive of underlying organic or metabolic encephalopathy or neuro degenerative process. Clinical correlation recommended. There is no evidence of any paroxysmal activity throughout the tracing
--- NOTE | 2022-10-21 12:39 | PM.PNCARD ---
Progress Note: A&P Assessment and Plan (1) Cardiac murmur: Code(s): R01.1 - Cardiac murmur, unspecified Status: Acute Assessment and Plan: Moderate MR, moderate (2) Left bundle branch block: Code(s): I44.7 - Left bundle-branch block, unspecified Status: Acute Assessment and Plan: EF preserved. (3) Mixed hyperlipidemia: Code(s): E78.2 - Mixed hyperlipidemia Status: Acute Assessment and Plan: Continue statin (4) Syncope: Code(s): R55 - Syncope and collapse Status: Acute Assessment and Plan: Her syncope is likely secondary to asystole. She had significant pause of over 15 seconds. therefore, the temporary a pacer was placed by Dr. Dong over the weekend. She is currently completely V paced At 70. Was taken to the laborer shipyard Wednesday for insertion of PPM but case was aborted due to patient becoming agitated and combative. Plan for PPM insertion on with the assistance of anesthesia. Discussed plan with Dr. Carroll who will be performing pacemaker insertion. In preparation of PPM placement, hold enoxaparin on morning of 10/22. Patient to be NPO at midnight. (5) Elevated troponin: Code(s): R77.8 - Other specified abnormalities of plasma proteins Status: Acute Assessment and Plan: Not related to ACS (6) Atrial fibrillation: Code(s): I48.91 - Unspecified atrial fibrillation Status: Acute Assessment and Plan: Paroxysmal, will monitor on tele. Subjective Date/time seen: 10/21/22 12:39 Interval history: Reason for visit: Syncope, symptomatic bradycardia Overnight, patient went into AFIB with RVR. Given Amiodarone, back in sinus with V-paced rhythm this morning. Patient without complaints this morning. Awaiting PPM placement by Dr. Carroll tomorrow. No longer on Amiodarone. Review of Systems Review of Systems: 8-point ROS obtained. Negative, unless stated in HPI. Exam Narrative: Awake, alert, and oriented. Const: General: comfortable HENMT: Face/Nose/Sinus: Normal nares present Mouth: Yes moist mucous membranes Eyes: General: appearance normal, both eyes and all related structures Sclera: sclerae normal Neck: Neck: supple Resp: Effort & Inspection: normal respiratory effort Auscultation: clear to auscultation bilaterally Cardio: Rate: regular rate Rhythm: regular rhythm Heart sounds: Murmur heart sound present Other: 3/6 systolic ejection murmur at base. V paced. Right groin is stable GI: Inspection: non-distended Auscultation: normal bowel sounds Skin: General skin exam: normal color Neuro: Cranial nerves: Yes Normal hearing present Speech: normal speech Extrem: General: normal to inspection Psych: Mental Status: mental status grossly normal Affect: normal affect Objective Data Vital Signs Vital Signs: Vital Signs - 24 hr 10/20/22 13:25 10/20/22 14:00 10/20/22 14:00 Temperature 37.7 C H 37.7 C H Pulse Rate 84 85 Pulse Rate [Bilateral Pedal (Dorsalis Pedis) Palpation] Respiratory Rate 26 H Blood Pressure 91/61 L Pulse Oximetry 93 Oxygen Delivery Oxygen Flow Rate 10/20/22 15:48 10/20/22 14:07 10/20/22 16:23 Temperature Pulse Rate 78 Pulse Rate [Bilateral Pedal (Dorsalis Pedis) Palpation] Respiratory Rate Blood Pressure 111/76 Pulse Oximetry 97 Oxygen Delivery Nasal Cannula Oxygen Flow Rate 2 10/20/22 16:23 10/20/22 16:23 10/20/22 16:00 Temperature 37.7 C H Pulse Rate 78 78 Pulse Rate [Bilateral Pedal (Dorsalis Pedis) Palpation] 78 Respiratory Rate 28 H 28 H Blood Pressure 123/88 Pulse Oximetry 97 Oxygen Delivery Nasal Cannula Oxygen Flow Rate 2 10/20/22 18:00 10/20/22 18:00 10/20/22 20:00 Temperature 37.4 C Pulse Rate 81 81 Pulse Rate [Bilateral Pedal (Dorsalis Pedis) Palpation] Respiratory Rate 28 H Blood Pressure 139/94 H Pulse Oximetry 96 97 Oxygen Deliver
--- NOTE | 2022-10-21 13:07 | WPDGICN ---
Assessment and Plan Assessment and plan (1) Ileus: Code(s): K56.7 - Ileus, unspecified Status: Acute Assessment and Plan: Patient's clinical course reviewed and x-rays examined. It appears though patient likely had an abdominal ileus that has now resolved. Currently abdomen is softer flatter nontender with bowel sounds that her appear appropriate. She is passing flatus without difficulty. Plan to start with liquid diet and advance as tolerated. If patient continues to have difficulty the Gastrografin lower GI would be recommended. (2) Cholelithiasis: Code(s): K80.20 - Calculus of gallbladder without cholecystitis without obstruction Status: Acute Assessment and Plan: Gallstones identified on imaging appear to be asymptomatic suggest observation present. (3) Cystic mass of pancreas: Code(s): K86.2 - Cyst of pancreas Status: Acute Assessment and Plan: Pancreatic cyst identified on imaging. Etiology unclear likely benign. I PMN cannot be excluded. Suggest follow-up imaging MRCP when she is clinically able to tolerate this. Follow-up CT scan imaging per the radiology recommendations in 6-12 months. (4) Aortic stenosis: Code(s): I35.0 - Nonrheumatic aortic (valve) stenosis Status: Acute (5) Abnormal EKG: Code(s): R94.31 - Abnormal electrocardiogram [ECG] [EKG] Status: Acute Assessment and Plan: Patient with sinus pauses and sick sinus syndrome. cardiology following. Pacemaker anticipated. GI Consult Note Consult date/time: 10/21/22 13:07 Reason for consult: Abdominal distention HPI: Bessie Chandra is a 76 year old female I am asked to see because of a bloated distended abdomen. Patient admitted on 10/16/2022. She was felt to have sick sinus syndrome with sinus pauses. Initially placed with a temporary pacemaker. She is awaiting a permanent pacemaker insertion. Patient time became somewhat disoriented was placed in the intensive care unit. She developed rather significant abdominal distention and bloating. Apparently stopped having gas and flatus. A CT scan of the abdomen was ordered which showed gallstones but no evidence of cholecystitis. A cyst was identified in the pancreas measuring 1.4cm. And diffuse stomach and small bowel dilatation was noted. Patient had NG tube placed for decompression and tolerated it well. Last 9 today she began to pass flatus. Should NG tube is been removed patient currently feeling much improved. She is anxious to begin diet even if it is only liquids. Patient's recent history includes pain medications that include narcotics. Review of Systems Review of Systems: Review of systems noncontributory. FOR[facility]LY [facility], [facility] Past Medical History Medical History Mixed hyperlipidemia Seasonal allergies Surgical History Surgical History History of carpal tunnel release History of cataract extraction Family History Family History Mother Hx of cancer of uterus Hypotension Father Heart disease Diabetes mellitus Hypertension Sibling Asthma Hypotension Diabetes mellitus Daughter Hypertension Son Hypertension Social History Social History Social History: Surrogate medical decision maker: Albino Holderer, spouse. Code status: Full code. Smoking status: Never smoker Second hand tobacco smoke exposure: No Alcohol intake: current Alcohol use details: Rare alcohol use in moderation. Substance use: never Substance use type: does not use Lack of Transportation: No Lack of Food: Never True Current Housing: I Have Housing Concerned About Future Housing: No Difficulty Paying Gas/Electric Bills: No Difficulty Paying for Meds: No Currently Unemployed: No E
--- NOTE | 2022-10-21 17:12 | PM.IMPN ---
Progress Note: A&P Assessment and Plan (1) Syncope: Code(s): R55 - Syncope and collapse Status: Acute Assessment and Plan: Secondary to sick sinus syndrome and sinus pauses -10/17 symptomatic sinus pauses status post post transvenous pacemaker placement -10/19: Patient was taken to the laboratory assistant for permanent pacemaker placement, she got agitated and combative and the procedure was abandoned she was brought back to the ICU. -continue Telemetry monitoring -Normal TSH -Currently asymptomatic -permanent pacemaker has been scheduled for 10/22/[address] Carroll -[place] on hold after midnight procedure tomorrow -INR is 1.1 on 10/21/2022 -patient had an episode of AFib RVR overnight requiring amiodarone, which has been discontinued as patient is back in paced rhythm (2) Delirium: Code(s): R41.0 - Disorientation, unspecified Status: Acute Assessment and Plan: 10/18 Patient sundowning and had delirium overnight. She was given dose of Geodon -will use Precedex infusion if required as patient still has a transvenous pacemaker -patient does get confused overnight but this morning she has been alert, awake, oriented x3 (3) Aortic stenosis: Code(s): I35.0 - Nonrheumatic aortic (valve) stenosis Status: Acute Assessment and Plan: 10/17/2022 echocardiogram showed EF of 65-70%, severely increased LV wall thickness, grade 1 diastolic dysfunction, moderate aortic valve stenosis with a valve area of 1.50 cm2, severe aortic valve calcification, moderate mitral valve regurgitation, mitral valve annulus severely calcified, mild tricuspid valve regurg and mild pulmonic valve regurg. -Will need further evaluation as an outpatient for definitive therapy if indicated (4) Fever: Code(s): R50.9 - Fever, unspecified Status: Acute Assessment and Plan: Low-grade fever. Which have resolved -UA is within normal limits -chest x-ray shows patchy bilateral airspace opacities consistent with atelectasis versus pneumonia, gaseous distension of the stomach -Procalcitonin is very low suggesting against systemic infection (5) Cystic mass of pancreas: Code(s): K86.2 - Cyst of pancreas Status: Acute Assessment and Plan: 10/17: CT scan of the abdomen showed cholelithiasis without CT evidence of cholecystitis, 1.4 cm cystic lesion of the pancreas - Once permanent pacemakers placed, this can be followed up as an outpatient. Patient's daughter has been updated on the findings of the CT scan and they are aware of these findings and need to follow-up as an outpatient (6) Oliguria: Code(s): R34 - Anuria and oliguria Status: Acute Assessment and Plan: Urine output on the lower side. Normal renal function Continue to monitor (7) Cholelithiasis: Code(s): K80.20 - Calculus of gallbladder without cholecystitis without obstruction Status: Acute Assessment and Plan: Cholelithiasis without any evidence of cholecystitis as seen on CD of the pelvis as above -Again if this can be managed in outpatient once patient it issues are resolved. These findings were discussed with patient's daughter and they are aware of these findings and will need to follow-up as an outpatient if needed (8) Abdominal discomfort: Code(s): R10.9 - Unspecified abdominal pain Status: Acute Assessment and Plan: CT scan reviewed and her symptoms could be secondary to cholelithiasis or GERD Patient started on Pepcid, Maalox and simethicone 10/20/2022: Obstructive series showed distended stomach along with air-filled bowel loops likely most likely colonic. Patient was nauseous and complaining for abdominal pain, NG tube was inserted with significant gastric drainage with improvement in abdominal pain, nausea and abdominal distention. -patient did pull out her NG tube overnight on 10/20. -continue to monitor, will start clear liquids, Reglan. -patient is passing gas -if
--- NOTE | 2022-10-21 18:06 | P.PNCROSS_ITS ---
Event Note Event Note Event Note: Cardiology: Chart reviewed, pt seen and examined. Counseled pt and Daughter and son (in- law?) at the bedside, as well as by phone about cardiac issues, indication for pacemaker, implant procedure, FU and possible complications. All questions answered. Pt and family are eager to proceed.
[2022-10-22] VITALS (16 sets, daily range): BP systolic 90–132; BP diastolic 58–66; PULSE 65–76; RESP 16–25; TEMP 36.7–37.4; O2SAT 91–99
[2022-10-22] MEDS: DEXTROSE 5%/0.45% SOD CHL 1,000 ML 100 ML IV CONT (00:31)
[2022-10-22] MEDS: METOCLOPRAMIDE HCL INJ 10 MG/2 ML VIAL IV PUSH (06:09)
[2022-10-22 06:52] LABS: Basophils Absolute Auto 0.1 K/mm3 (0.0-0.1); Basophils Percent Auto 0.5 % (0.2-1.2); Eosinophils Absolute Auto 0.4 K/mm3 (0-0.3); Eosinophils Percent Auto 4.6 % (0-4.4); Hemoglobin 11.7 g/dL (12.0-15.0); Immature Granulocyte Absolute 0.03 K/mm3 (0.00-0.031); Immature Granulocyte Percent A 0.3 % (0-0.5); Lymphocytes Absolute Auto 1.47 K/mm3 (0.9-3.2); Lymphocytes Percent Auto 15.7 % (18.3-44.2); Mean Corpuscular HGB Conc 31.6 g/dl (32-36); Mean Corpuscular Hemoglobin 29.5 pg (26-34); Mean Corpuscular Volume 93.2 fl (80-100); Mean Platelet Volume 11.2 fl (7.4-10.4); Monocytes Absolute Auto 0.9 K/mm3 (0.1-0.6); Monocytes Percent Auto 9.6 % (2.6-8.5); Neutrophils Absolute Auto 6.5 K/mm3 (1.3-6.7); Neutrophils Percent Auto 69.3 % (45.5-73.1); Platelet Count Result 245 k/mm3 (150-375); Red Blood Count 3.97 M/mm3 (4.2-5.4); Red Cell Distribution Width 13.5 % (11.5-14.5); White Blood Count 9.3 K/mm3 (4.5-10.0)
[2022-10-22 07:05] LABS: Anion Gap 1 mmol/L (8-16); Blood Urea Nitrogen 7 mg/dL (7-17); Calcium 7.7 mg/dL (8.4-10.2); Carbon Dioxide 30 mmol/L (22-30); Chloride 102 mmol/L (98-107); Estimated CRCL calculation 77 ml/min; Estimated Glomerular Filt Rate > 60; Glucose 111 mg/dL (65-110); Magnesium 2.2 mg/dL (1.6-2.3); Phosphorus 3.4 mg/dL (2.5-4.5); Potassium 3.7 mmol/L (3.4-5.0); Sodium 133 mmol/L (137-145)
[2022-10-22 07:10] LABS: INR 1.1; Prothrombin Time 13.8 Seconds (11.1-14.7)
[2022-10-22 07:11] LABS: Partial Thromboplastin Time 30.3 SECONDS (22.3-36.8)
--- NOTE | 2022-10-22 08:12 | WPDHPUPDATE1 ---
History and Physical Update Update Date/Time: 10/22/22 08:12 Patient with recurrent syncope, admitted with intermittent complete heart block and episodes of ventricular asystole. Status post temporary pacemaker. Pacemaker implant was attempted earlier this admission but abandonned due to the pt's confusion, agitation and inability to cooperate with the procedure. Plan is to implant a permanent dual chamber pacemaker with anesthesia assistance today. Low-grade temperature noted, cultures have been negative and she is not being treated for any significant active infection. Patient has been NPO. and daughter at the bedside. Reviewed procedure, possible risks and complications. These include breathing problems, allergic reactions, bleeding, infection, pneumothorax, cardiac puncture, need for unanticipated surgery, lead dislodgement among others. History and Physical has been reviewed, including an updated exam of the patient. There are NO changes in the patient's condition. Risks, benefits, and alternatives have been discussed and questions answered. Patient and family agree to proceed with procedure.
--- NOTE | 2022-10-22 08:15 | WPDMODSED ---
Moderate Sedation Note-Pt Data Patient Data Present Complaint: Patient with recurrent syncope, admitted with intermittent complete heart block and episodes of ventricular asystole.? Status post temporary pacemaker. Pacemaker implant was attempted earlier this admission but abandonned due to the pt's confusion, agitation and inability to cooperate with the procedure. ? Plan is to implant a permanent dual chamber pacemaker with anesthesia assistance today.? Low-grade temperature noted, cultures have been negative and she is not being treated for any significant active infection.? Patient has been NPO.? and daughter at the bedside. The pt had a LBBB, E 65-70%, mixed hyperlipidemia, PAF, moderate aortic stenosis, moderate MR. She was admitted also with a mild ileus, delerium and probable underlying dementia. Procedure to be performed/Plan: Sedation with anesthesia Venogram Implantation of a permanent dual chamber pacemaker REmoval of the temporary pacemaker Allergies Allergy/AdvReac Type Severity Reaction Status Date / Time No Known Allergies Allergy Verified 10/16/22 22:49 Home Medications Medication Instructions Recorded Confirmed Type albuterol sulfate 90 mcg/actuation 1 inh inhalation Q4H PRN shortness 05/20/22 10/16/22 Rx aerosol inhaler of breath or wheezing #8.5 grams atorvastatin 10 mg tablet 10 mg PO DAILY #90 tabs 06/29/22 10/16/22 Rx montelukast 10 mg tablet 10 mg PO QHS #30 tabs 06/29/22 10/16/22 Rx Dulcolax (bisacodyl) 5 mg PO DAILY PRN Constipation 10/16/22 10/16/22 History [place] 3 Fish Oil 1,200 mg PO DAILY 10/16/22 10/16/22 History cetirizine 10 mg tablet (Zyrtec) 10 mg PO DAILY 10/16/22 10/16/22 History clindamycin phosphate 2 % vaginal 1 applic vaginal HS 10/16/22 10/16/22 History cream Current Medications: Active Medications Al Hydrox/Mg Hydrox/Simethicone (Mag Hydrox/Al Hydrox/Simeth 30 Ml Udc) 30 ml PO Q6H PRN PRN Reason: Indigestion Last Admin: 10/20/22 13:45 Dose: 30 ml Albuterol (Albuterol Sulfate (*Sp) Aerosol 1 Puff) 1 puff INHALATION Q4H PRN PRN Reason: shortness of breath or wheezing Aspirin (Aspirin 81 Mg Enteric Tablet) 81 mg PO [facility] Last Admin: 10/21/22 08:19 Dose: Not Given Atorvastatin Calcium (Atorvastatin 10 Mg Tablet) 10 mg PO DAILY [facility] Last Admin: 10/21/22 08:19 Dose: Not Given Famotidine (Famotidine 20 Mg/2 Ml Vial) 20 mg IV PUSH Q12HR [facility] Last Admin: 10/21/22 20:57 Dose: 20 mg Fish Oil ([place] 3 Polyunsat Fatty Acids 1 Gm Cap) 1 gm PO [facility] Last Admin: 10/21/22 08:19 Dose: Not Given Hydralazine HCl (Hydralazine Hcl 20 Mg/Ml Vial) 20 mg IV PUSH Q4H PRN PRN Reason: SBP more than 160 Dextrose/Sodium Chloride (Dextrose 5% Sodium Chloride 0.45%) 1,000 mls @ 100 mls/hr IV CONT .Q10H [facility] Last Admin: 10/22/22 00:31 Dose: 100 mls/hr Acetaminophen (Ofirmev 1,000 Mg Ivpb) 1,000 mg in 100 mls @ 400 mls/hr IVPB Q6H PRN PRN Reason: Pain Rated 4-6 Stop: 10/22/22 17:40 Last Infusion: 10/21/22 18:23 Dose: Infused Vancomycin HCl (Vancomycin 2,000 Mg/D5w 500 Ml) 2,000 mg in 500 mls @ 250 mls/hr IVPB ONCE ONE Stop: 10/22/22 10:09 Levalbuterol HCl (Levalbuterol Neb 1.25 Mg/3 Ml) 0.63 mg INHALATION Q6HRT PRN PRN Reason: Wheezing Last Admin: 10/19/22 05:48 Dose: 0.63 mg Loratadine (Loratadine 10 Mg Tablet) 10 mg PO [facility] Last Admin: 10/21/22 08:19 Dose: Not Given Montelukast Sodium (Montelukast Sodium 10 Mg Tablet) 10 mg PO QHS [facility] Last Admin: 10/21/22 20:57 Dose: Not Given Non-Formulary Medication (Clindamycin Phosphate) 1 applic VAGINAL [facility] Stop: 11/16/22 20:59 Ondansetron HCl (Ondansetron Inj 4 Mg/2 Ml Vial) 4 mg IV PUSH Q6H PRN PRN Reason: Nausea And Vomiting Last Admin: 10/20/22 18:06 Dose: 4 mg Polyethylene Glycol (Polyethylene Glycol 3350 17 Gm Powd.Pack) [facility] [place] Last Admin: 10/21/22 08:20 Dose: Not Given Simethicone (Simethicone 80 Mg Tab.Chew) 80 mg PO QID PRN PRN Reason: Abdominal Cramping
--- NOTE | 2022-10-22 08:22 | PC.NURSE ---
Patient to laboratory assistant via hospital bed, laboratory assistant staff at bedside.
--- NOTE | 2022-10-22 08:26 | WPDANESEPPF ---
Anes - Initial Pre Proc Eval Procedure: Operation Date: 10/17/22 15:10 Proposed Procedures p Temp Transcutaneous Pacing - Jamal Dong MD Operation Date: 10/19/22 13:00 Proposed Procedures p Insert/Remove DCPPM RA/LV Lead - Paxton Mcfarland MD Operation Date: 10/22/22 08:30 Proposed Procedures p Insertion Pacemaker - Diana Carroll MD Date/Time: 10/22/22 08:26 Surgeon: Kari Aviles MD Pre Op Diagnosis: Syncope, elevated troponin Patient Data Age: 76 Gender: F Height: 1.59 m Weight: 98.6 kg Last Vital Signs Temp 37.3 C 10/22/22 08:00 Pulse 74 10/22/22 08:00 Resp 21 H 10/22/22 08:00 BP 105/62 10/22/22 08:00 Pulse Ox 99 10/22/22 08:00 O2 Del Method Nasal Cannula 10/22/22 04:00 O2 Flow Rate 2 10/22/22 04:00 Allergies Allergy/AdvReac Type Severity Reaction Status Date / Time No Known Allergies Allergy Verified 10/16/22 22:49 Home Medications Medication Instructions Recorded Confirmed Type albuterol sulfate 90 mcg/actuation 1 inh inhalation Q4H PRN shortness 05/20/22 10/16/22 Rx aerosol inhaler of breath or wheezing #8.5 grams atorvastatin 10 mg tablet 10 mg PO DAILY #90 tabs 06/29/22 10/16/22 Rx montelukast 10 mg tablet 10 mg PO QHS #30 tabs 06/29/22 10/16/22 Rx Dulcolax (bisacodyl) 5 mg PO DAILY PRN Constipation 10/16/22 10/16/22 History [place] 3 Fish Oil 1,200 mg PO DAILY 10/16/22 10/16/22 History cetirizine 10 mg tablet (Zyrtec) 10 mg PO DAILY 10/16/22 10/16/22 History clindamycin phosphate 2 % vaginal 1 applic vaginal HS 10/16/22 10/16/22 History cream Laboratory Tests 10/22/22 10/22/22 10/22/22 06:47 06:47 06:47 WBC 9.3 K/mm3 K/mm3 (4.5-10.0) RBC 3.97 M/mm3 L M/mm3 (4.2-5.4) Hgb 11.7 g/dL L g/dL (12.0-15.0) Hct 37.0 % % (37.0-47.0) MCV 93.2 fl fl (80-100) MCH 29.5 pg pg (26-34) MCHC 31.6 g/dl L g/dl (32-36) RDW 13.5 % % (11.5-14.5) Plt Count 245 k/mm3 k/mm3 (150-375) MPV 11.2 fl H fl (7.4-10.4) Immature Gran % (Auto) 0.3 % % (0-0.5) Neut % (Auto) 69.3 % % (45.5-73.1) Lymph % (Auto) 15.7 % L % (18.3-44.2) [place] % (Auto) 9.6 % H % (2.6-8.5) Eos % (Auto) 4.6 % H % (0-4.4) Baso % (Auto) 0.5 % % (0.2-1.2) Lymph # (Auto) 1.47 K/mm3 K/mm3 (0.9-3.2) Cameron # (Auto) 0.9 K/mm3 H K/mm3 (0.1-0.6) Eos # (Auto) 0.4 K/mm3 H K/mm3 (0-0.3) Baso # (Auto) 0.1 K/mm3 K/mm3 (0.0-0.1) Abs Immat Gran (auto) 0.03 K/mm3 K/mm3 (0.00-0.031) Absolute Neuts (auto) 6.5 K/mm3 K/mm3 (1.3-6.7) Absolute Nucleated RBC 0.0 K/mm3 K/mm3 (0.0-0.012) Nucleated RBC % 0.0 % % (0.0-0.2) PT 13.8 Seconds Seconds (11.1-14.7) INR 1.1 APTT 30.3 SECONDS SECONDS (22.3-36.8) Sodium 133 mmol/L L mmol/L (137-145) Potassium 3.7 mmol/L mmol/L (3.4-5.0) Chloride 102 mmol/L mmol/L (98-107) Carbon Dioxide 30 mmol/L mmol/L (22-30) Anion Gap 1 mmol/L L mmol/L (8-16) BUN 7 mg/dL D mg/dL (7-17) Creatinine 0.60 mg/dL L mg/dL (0.7-1.0) Estim Creat Clear Calc 77 ml/min ml/min Estimated GFR > 60 (59 - ) Glucose 111 mg/dL H mg/dL (65-110) Calcium 7.7 mg/dL L mg/dL (8.4-10.2) Phosphorus 3.4 mg/dL mg/dL (2.5-4.5) Magnesium 2.2 mg/dL mg/dL (1.6-2.3) Blood Type Antibody Screen 10/22/22 06:48 WBC RBC Hgb Hct MCV MCH MCHC RDW Plt Count MPV Immature Gran % (Auto) Neut % (Auto) Lymph % (Auto) [place] % (Auto) Eos % (Auto) Baso % (Auto) Lymph # (Auto) Cameron # (Auto) Eos # (Auto) Baso # (Auto)
--- NOTE | 2022-10-22 08:35 | WPDINTPN ---
Progress Note: A&P Assessment and Plan (1) Syncope: Code(s): R55 - Syncope and collapse Status: Acute Assessment and Plan: Secondary to sick sinus syndrome and sinus pauses -10/17 symptomatic sinus pauses status post post transvenous pacemaker placement -10/19: Patient was taken to the laborer hoisting for permanent pacemaker placement, she got agitated and combative and the procedure was abandoned she was brought back to the ICU. -continue Telemetry monitoring -Normal TSH -Currently asymptomatic -permanent pacemaker has been scheduled for 10/22/[address] Carroll with anesthesia -Lovenox has been on hold -INR is 1.1 on 10/22/2022 -patient had an episode of AFib RVR overnight requiring amiodarone, which has been discontinued as patient is back in paced rhythm (2) Delirium: Code(s): R41.0 - Disorientation, unspecified Status: Acute Assessment and Plan: 10/18 Patient sundowning and had delirium overnight. She was given dose of Geodon -will use Precedex infusion if required as patient still has a transvenous pacemaker -patient does get confused overnight but this morning she has been alert, awake, oriented x3 (3) Aortic stenosis: Code(s): I35.0 - Nonrheumatic aortic (valve) stenosis Status: Acute Assessment and Plan: 10/17/2022 echocardiogram showed EF of 65-70%, severely increased LV wall thickness, grade 1 diastolic dysfunction, moderate aortic valve stenosis with a valve area of 1.50 cm2, severe aortic valve calcification, moderate mitral valve regurgitation, mitral valve annulus severely calcified, mild tricuspid valve regurg and mild pulmonic valve regurg. -Will need further evaluation as an outpatient for definitive therapy if indicated (4) Fever: Code(s): R50.9 - Fever, unspecified Status: Acute Assessment and Plan: Low-grade fever. Which have resolved -UA is within normal limits -chest x-ray shows patchy bilateral airspace opacities consistent with atelectasis versus pneumonia, gaseous distension of the stomach -Procalcitonin is very low suggesting against systemic infection (5) Cystic mass of pancreas: Code(s): K86.2 - Cyst of pancreas Status: Acute Assessment and Plan: 10/17: CT scan of the abdomen showed cholelithiasis without CT evidence of cholecystitis, 1.4 cm cystic lesion of the pancreas - Once permanent pacemakers placed, this can be followed up as an outpatient. Patient's daughter has been updated on the findings of the CT scan and they are aware of these findings and need to follow-up as an outpatient (6) Oliguria: Code(s): R34 - Anuria and oliguria Status: Acute Assessment and Plan: Urine output on the lower side. Normal renal function Will start some IV fluids and monitor renal function urine output and electrolytes -urine output has improved overnight, - creatinine is normal (7) Cholelithiasis: Code(s): K80.20 - Calculus of gallbladder without cholecystitis without obstruction Status: Acute Assessment and Plan: Cholelithiasis without any evidence of cholecystitis as seen on CD of the pelvis as above -Again if this can be managed in outpatient once patient it issues are resolved. These findings were discussed with patient's daughter and they are aware of these findings and will need to follow-up as an outpatient if needed (8) Abdominal discomfort: Code(s): R10.9 - Unspecified abdominal pain Status: Acute Assessment and Plan: CT scan reviewed and her symptoms could be secondary to cholelithiasis or GERD Patient started on Pepcid, Maalox and simethicone 10/20/2022: Obstructive series showed distended stomach along with air-filled bowel loops likely most likely colonic. Patient was nauseous and complaining for abdominal pain, NG tube was inserted with significant gastric drainage with improvement in abdominal pain, nausea and abdominal distention. -patient did pull out he
--- NOTE | 2022-10-22 10:42 | PM.OP ---
Procedure Note - Brief Procedure Note - Brief Date of procedure: 10/22/22 Pre-op diagnosis: Syncope, elevated troponin Intermittent complete heart block Procedure performed: venogram Implantation of a permanent dual-chamber transvenous pacemaker removal of the temporary transvenous pacemaker Description of procedure: uneventful pacemaker implant Surgeon: Diana Carroll MD Complications: No immediate complications Condition: Stable Disposition: ICU Findings: patient has underlying sinus rhythm
--- NOTE | 2022-10-22 10:50 | ECG_ITS ---
Measurements Intervals Watson Rate: 64 P: 76 MN: 171 QRS: -27 QRSD: 164 T: 180 QT: 483 QTc: 500 Interpretive Statements SINUS RHYTHM LEFT BUNDLE BRANCH BLOCK [120+ ms QRS DURATION, 80+ ms Q/S IN V1/V2, 85+ ms R IN I/aVL/V5/V6] COMPARED TO ECG 10/20/2022 21:55:27 SINUS RHYTHM NOW PRESENT Electronically Signed On 10-22-2022 15:48:28 BUSINESS ANALYT[employer] SPECIALIST by Rachel Murcia M.D.
--- NOTE | 2022-10-22 11:54 | W.PM.PROC2 ---
Procedure Note - Detailed Date of Procedure 10/22/22 Pre-op Diagnosis Syncope, elevated troponin Post-op Diagnosis Other ( Status post dual-chamber Biotronik pacemaker) Procedure Performed Sedation with anesthesia Venogram Implantation of a permanent dual chamber pacemaker Removal of the temporary transient pacemaker Surgeon Diana Carroll MD Anesthesia MAC ( see anesthesia notes) Indications Patient with recurrent syncope, admitted with intermittent complete heart block and episodes of ventricular asystole.? Status post temporary pacemaker. Pacemaker implant was attempted earlier this admission but abandonned due to the pt's confusion, agitation and inability to cooperate with the procedure. ? Plan is to implant a permanent dual chamber pacemaker with anesthesia assistance today.? Low-grade temperature noted, cultures have been negative and she is not being treated for any significant active infection.? Patient has been NPO.? and daughter at the bedside. The pt had a LBBB, E 65-70%, mixed hyperlipidemia, PAF, moderate aortic stenosis, moderate MR.? when she was admitted, she appeared to have a mild ileus, delerium and probable underlying dementia. Findings patient has an underlying rhythm, NSR Description of Procedure SITE: Left prepectoral area MEDICATIONS GIVEN IN MANUFACTURING ACCOUNTANT: vancomycin 2 g IV piggyback CONSCIOUS SEDATION: Assessment: The patient has no history of anesthesia problems. The patient's oropharynx is clear. The patient was deemed to be a good candidate for conscious sedation. The patient had continuous hemodynamic monitoring during the procedure. Start time: 902 Completion time: 1036 Total conscious sedation time: 94 minutes Medications: see anesthesia flow sheets Trained observer: Melanie Encarnacion CRNA Outcome: The patient tolerated the procedure well with no complications. PROCEDURE: After informed consent , the patient was brought to the laborer road and the left prepectoral area was prepped and draped in usual fashion . The patient received preop antibiotic and conscious sedation . The left prepectoral area was anesthetized with lidocaine . A venogram was performed showing the course of the left subclavian vein, which was patent. Due to the course of the vein, which was lower than one would anticipate, I elected to make the skin incision caudal to the original pacemaker incision pocket. Next a skin incision was made and carried down to the prepectoral fascia. Hemostasis was obtained using electrocautery . The pacer pocket was formed. The left subclavian vein was easily accessed with the micropuncture technique, and a J-tipped guide wire was passed into the inferior vena cava under fluoroscopic guidance. The needle was withdrawn. 6 Sinhala safety sheath was passed over the wire, and wire withdrawn. A 2nd sheath was introduced in a similar fashion. The right ventricular lead was passed into the inferior vena cava under fluoroscopic guidance . The lead was then prolapsed through the tricuspid valve and advanced into the right ventricular apex. When suitable sensing and pacing thresholds were obtained, it was screwed into place. The lead needed to be repositioned to achieve satisfactory threshold and impedance. No extra cardiac stimulation was obtained using 10 volts. The sheath was withdrawn. Right atrial lead was advanced through the 2nd sheath, then pulled back to the level of the right atrium and manipulated into the right atrial appendage . When suitable sensing and pacing thresholds were obtained , it was screwed into place . No extra cardiac stimulation was obtained using 10 volts. The sheath was withdrawn. Both leads were secured to the prepectoral fascia using 2-0 silk over their respective sleeves. The pocket was cleansed with antibiotic containing solution. The pulse generator was introduced into the operative field, and both leads were secured into the genera
[2022-10-22] MEDS: ATORVASTATIN 10 MG TABLET PO (13:55)
[2022-10-22] MEDS: ASPIRIN 81 MG ENTERIC TABLET PO (13:55)
[2022-10-22] MEDS: FAMOTIDINE 20 MG/2 ML VIAL IV PUSH ×2 (13:55→20:32)
[2022-10-22] MEDS: OMEGA 3 POLYUNSAT FATTY ACIDS 1 GM CAP PO (13:56)
[2022-10-22] MEDS: polyethylene glycoL 3350 17 GM POWD.PACK PO (13:56)
[2022-10-22] MEDS: LORATADINE 10 MG TABLET PO (13:56)
--- NOTE | 2022-10-22 14:19 | WPDGIPROGNO ---
Progress Note: A&P Assessment and Plan (1) Ileus: Code(s): K56.7 - Ileus, unspecified Status: Acute Assessment and Plan: Pain in had ileus a few days ago this appears resolved. Now with good bowel function soft flat nontender abdomen. Passing flatus and good bowel function. No further workup anticipated. (2) Mitral regurgitation: Code(s): I34.0 - Nonrheumatic mitral (valve) insufficiency Status: Acute (3) Aortic stenosis: Code(s): I35.0 - Nonrheumatic aortic (valve) stenosis Status: Acute (4) Atrial fibrillation: Code(s): I48.91 - Unspecified atrial fibrillation Status: Acute (5) Cholelithiasis: Code(s): K80.20 - Calculus of gallbladder without cholecystitis without obstruction Status: Acute Assessment and Plan: Gallstones no noted on imaging appear asymptomatic recommend conservative management follow-up. (6) Pancreatic cyst: Code(s): K86.2 - Cyst of pancreas Status: Acute Assessment and Plan: Pancreatic cysts noted. May represent an IPMN. Suggest follow-up imaging of the pancreas according to recommendations by Radiology anticipate CT scan in 6 months. Consider referral for endoscopic ultrasound to tertiary care center if necessary. Subjective Date/time seen: 10/22/22 14:19 Interval history: Patient had pace maker placed today. Her abdominal exam has improved dramatically. She is passing gas and flatus. Denies abdominal pain. No nausea. Tolerating diet. Review of Systems Review of Systems: Review of systems noncontributory. Exam Narrative: This sickle exam reveals patient be alert. No longer confused. Lungs reveal a few rhonchi. Abdomen is obese bowel sounds are present soft nontender. Objective Data Vital Signs Vital Signs: Vital Signs - 24 hr 10/21/22 15:38 10/21/22 15:45 10/21/22 16:00 Temperature 99.7 F H Pulse Rate 73 Pulse Rate [Bilateral Pedal (Dorsalis Pedis) Palpation] 73 Respiratory Rate Blood Pressure 102/72 Pulse Oximetry 93 94 Oxygen Delivery Nasal Cannula Oxygen Flow Rate 2 10/21/22 16:00 10/21/22 17:01 10/21/22 18:00 Temperature Pulse Rate 73 73 Pulse Rate [Bilateral Pedal (Dorsalis Pedis) Palpation] Respiratory Rate Blood Pressure 118/65 Pulse Oximetry Oxygen Delivery Oxygen Flow Rate 10/21/22 18:00 10/21/22 20:00 10/21/22 20:00 Temperature 99.2 F Pulse Rate 73 73 73 Pulse Rate [Bilateral Pedal (Dorsalis Pedis) Palpation] Respiratory Rate 23 H 23 H 23 H Blood Pressure 91/68 L 102/72 Pulse Oximetry 98 98 98 Oxygen Delivery Nasal Cannula Oxygen Flow Rate 2 10/21/22 20:00 10/21/22 20:00 10/21/22 22:00 Temperature Pulse Rate 73 73 Pulse Rate [Bilateral Pedal (Dorsalis Pedis) Palpation] 73 Respiratory Rate Blood Pressure Pulse Oximetry Oxygen Delivery Oxygen Flow Rate 10/21/22 22:00 10/21/22 23:51 10/22/22 00:07 Temperature 99.0 F Pulse Rate 73 73 73 Pulse Rate [Bilateral Pedal (Dorsalis Pedis) Palpation] Respiratory Rate 18 25 H Blood Pressure 110/70 Pulse Oximetry 96 97 Oxygen Delivery Nasal Cannula Oxygen Flow Rate 2 10/22/22 00:00 10/22/22 00:00 10/22/22 02:00 Temperature 99.2 F 99.4 F Pulse Rate 73 73 Pulse Rate [Bilateral Pedal (Dorsalis Pedis) Palpation] 73 Respiratory Rate 25 H 18 Blood Pressure 90/58 L 92/65 L Pulse Oximetry 98 97 Oxygen Delivery Oxygen Flow Rate 10/22/22 03:58 10/22/22 04:00 10/22/22 04:00 Temperature 99.4 F Pulse Rate 73 73 Pulse Rate [Bilateral Pedal (Dorsalis Pedis) Palpation] 73 Respiratory Rate 22 H 23 H Blood Pressure 98/65 L Pulse Oximetry 97 97 Oxygen Delivery Nasal Cannula Oxygen Flow Rate 2 10/22/22 04:00 10/22/22 06:00 10/22/22 06:00 Temperature 99.4 F Pulse Rate 73 70 73 Pulse Rate [Bilateral Pedal (Dorsalis Pedis) Palpation] Respiratory Rate 16 Blood Pressure 92/
[2022-10-22] MEDS: MONTELUKAST SODIUM 10 MG TABLET PO (20:32)
[2022-10-22 21:47] LABS: Prolactin 5.8 ng/mL (***)
[2022-10-23] VITALS (17 sets, daily range): BP systolic 99–152; BP diastolic 58–98; PULSE 65–156; RESP 16–24; TEMP 37.2–37.5; O2SAT 90–98
[2022-10-23] MEDS: traMADol HCL (*CRX) 50 MG TABLET PO (02:23)
--- NOTE | 2022-10-23 05:40 | ECG_ITS ---
Measurements Intervals [place] Rate: 129 P: [place]: 0 QRS: -42 QRSD: 150 T: 143 QT: 334 QTc: 489 Interpretive Statements ATRIAL FIBRILLATION WITH RAPID VENTRICULAR RESPONSE MARKED LEFT AXIS DEVIATION [QRS AXIS < -30] LEFT BUNDLE BRANCH BLOCK [120+ ms QRS DURATION, 80+ ms Q/S IN V1/V2, 85+ ms R IN I/aVL/V5/V6] COMPARED TO ECG 10/22/2022 12:38:42 ATRIAL FIBRILLATION REPLACES SINUS RHYTHM Electronically Signed On 10-23-2022 13:09:52 MOTOR VEHICLE SALESPERSON by Paxton Mcfarland M.D.
[2022-10-23] MEDS: AMIODARONE 150 MG/D5W 100 ML 150 MG/100 ML BAG 600 MG IV CONT (06:02)
[2022-10-23] MEDS: AMIODARONE 360 MG/D5W 200 ML 360 MG/200 ML BAG 33.33 MG IV CONT (06:16)
[2022-10-23 06:20] LABS: Hematocrit 37.4 % (37.0-47.0); Hemoglobin 11.8 g/dL (12.0-15.0); Mean Corpuscular HGB Conc 31.6 g/dl (32-36); Mean Corpuscular Hemoglobin 29.4 pg (26-34); Mean Corpuscular Volume 93.3 fl (80-100); Mean Platelet Volume 11.1 fl (7.4-10.4); Platelet Count Result 218 k/mm3 (150-375); Red Blood Count 4.01 M/mm3 (4.2-5.4); Red Cell Distribution Width 13.4 % (11.5-14.5); White Blood Count 9.7 K/mm3 (4.5-10.0)
[2022-10-23 06:31] LABS: Alanine Aminotransferase 16 U/L (6-35); Albumin Level 3.5 g/dL (3.5-5.1); Alkaline Phosphatase 92 U/L (38-126); Anion Gap 4 mmol/L (8-16); Aspartate Amino Transferase 22 U/L (14-36); Bilirubin,Total 0.6 mg/dL (0.2-1.3); Blood Urea Nitrogen 7 mg/dL (7-17); Carbon Dioxide 32 mmol/L (22-30); Chloride 98 mmol/L (98-107); Estimated CRCL calculation 75 ml/min; Estimated Glomerular Filt Rate > 60; Glucose 129 mg/dL (65-110); Potassium 3.6 mmol/L (3.4-5.0); Sodium 134 mmol/L (137-145)
[2022-10-23] MEDS: ATORVASTATIN 10 MG TABLET PO (08:19)
[2022-10-23] MEDS: ASPIRIN 81 MG ENTERIC TABLET PO (08:19)
[2022-10-23] MEDS: FAMOTIDINE 20 MG/2 ML VIAL IV PUSH ×2 (08:19→20:25)
[2022-10-23] MEDS: polyethylene glycoL 3350 17 GM POWD.PACK PO (08:20)
[2022-10-23] MEDS: OMEGA 3 POLYUNSAT FATTY ACIDS 1 GM CAP PO (08:20)
[2022-10-23] MEDS: LORATADINE 10 MG TABLET PO (08:20)
--- NOTE | 2022-10-23 12:11 | PM.IMPN ---
Progress Note: A&P Assessment and Plan (1) Syncope: Code(s): R55 - Syncope and collapse Status: Acute Assessment and Plan: Secondary to sick sinus syndrome and sinus pauses -10/17 symptomatic sinus pauses status post post transvenous pacemaker placement -10/19: Patient was taken to the slab polisher for permanent pacemaker placement, she got agitated and combative and the procedure was abandoned she was brought back to the ICU. -continue Telemetry monitoring -Normal TSH 10/22/2022:Status post Permanent pacemaker implantation. -patient had an episode of AFib RVR overnight requiring amiodarone, which has been discontinued as patient is back in paced rhythm . Back on amiodarone IV overnight. Will await Cardiology recommendations switching to oral amiodarone since recurrent AFib (2) Delirium: Code(s): R41.0 - Disorientation, unspecified Status: Acute Assessment and Plan: 10/18 Patient sundowning and had delirium overnight. She was given dose of Geodon -will use Precedex infusion if required as patient still has a transvenous pacemaker -patient does get confused overnight but this morning she has been alert, awake, oriented x3 Mentation and delirium much improved (3) Aortic stenosis: Code(s): I35.0 - Nonrheumatic aortic (valve) stenosis Status: Acute Assessment and Plan: 10/17/2022 echocardiogram showed EF of 65-70%, severely increased LV wall thickness, grade 1 diastolic dysfunction, moderate aortic valve stenosis with a valve area of 1.50 cm2, severe aortic valve calcification, moderate mitral valve regurgitation, mitral valve annulus severely calcified, mild tricuspid valve regurg and mild pulmonic valve regurg. -Will need further evaluation as an outpatient for definitive therapy if indicated (4) Fever: Code(s): R50.9 - Fever, unspecified Status: Acute Assessment and Plan: Low-grade fever. Which have resolved -UA is within normal limits -chest x-ray shows patchy bilateral airspace opacities consistent with atelectasis versus pneumonia, gaseous distension of the stomach -Procalcitonin is very low suggesting against systemic infection Afebrile since 10/19/2022 (5) Cystic mass of pancreas: Code(s): K86.2 - Cyst of pancreas Status: Acute Assessment and Plan: 10/17: CT scan of the abdomen showed cholelithiasis without CT evidence of cholecystitis, 1.4 cm cystic lesion of the pancreas - Once permanent pacemakers placed, this can be followed up as an outpatient. Patient's daughter has been updated on the findings of the CT scan and they are aware of these findings and need to follow-up as an outpatient (6) Oliguria: Code(s): R34 - Anuria and oliguria Status: Acute Assessment and Plan: Urine output on the lower side. Normal renal function Will start some IV fluids and monitor renal function urine output and electrolytes -urine output has improved overnight, - creatinine is normal (7) Cholelithiasis: Code(s): K80.20 - Calculus of gallbladder without cholecystitis without obstruction Status: Acute Assessment and Plan: Cholelithiasis without any evidence of cholecystitis as seen on CD of the pelvis as above -Again if this can be managed in outpatient once patient it issues are resolved. These findings were discussed with patient's daughter and they are aware of these findings and will need to follow-up as an outpatient if needed (8) Abdominal discomfort: Code(s): R10.9 - Unspecified abdominal pain Status: Acute Assessment and Plan: CT scan reviewed and her symptoms could be secondary to cholelithiasis or GERD Patient started on Pepcid, Maalox and simethicone 10/20/2022: Obstructive series showed distended stomach along with air-filled bowel loops likely most likely colonic. Patient was nauseous and complaining for abdominal pain, NG tube was inserted with significant gastric drainage with improve
--- NOTE | 2022-10-23 13:15 | PM.PNCARD ---
Progress Note: A&P Assessment and Plan (1) Cardiac murmur: Code(s): R01.1 - Cardiac murmur, unspecified Status: Acute Assessment and Plan: Moderate MR, moderate (2) Left bundle branch block: Code(s): I44.7 - Left bundle-branch block, unspecified Status: Acute Assessment and Plan: EF preserved. (3) Mixed hyperlipidemia: Code(s): E78.2 - Mixed hyperlipidemia Status: Acute Assessment and Plan: Continue statin (4) Syncope: Code(s): R55 - Syncope and collapse Status: Acute Assessment and Plan: Her syncope is likely secondary to asystole. She had significant pause of over 15 seconds. She is now s/p pacemaker insertion yesterday by Dr. Carroll. Normal device functioning when checked this morning. Follow up chest xray OK - no pneumo. (5) Elevated troponin: Code(s): R77.8 - Other specified abnormalities of plasma proteins Status: Acute Assessment and Plan: Not related to ACS (6) Atrial fibrillation: Code(s): I48.91 - Unspecified atrial fibrillation Status: Acute Assessment and Plan: Paroxysmal. Had some AF with RVR last night and amiodarone drip was restarted. She is back in sinus rhythm now. Will d/c amiodarone and shift her to metoprolol. Will need to start her on DOAC tomorrow as long as pacemaker insertion site is stable without bleeding. Subjective Date/time seen: 10/23/22 13:15 Interval history: Reason for visit: Syncope, symptomatic bradycardia Was placed on IV amiodarone once again overnight because of Afib RVR. She is in sinus rhythm at this point. She is fatigued today but overall is feeling okay. Has some tenderness surrounding pacemaker insertion site. No chest pain, palpitations, shortness of breath. Review of Systems Review of Systems: All systems reviewed & are unremarkable except as noted in HPI and below Constitutional: Constitutional: Denies body ache(s) and Denies excessive sweating Eyes: Eyes: Denies blurry vision ENT: Reports Normal hearing present Cardiovascular: Cardiovascular: Denies chest pain, Reports lightheadedness and Denies dyspnea Respiratory: Respiratory: Denies dyspnea Gastrointestinal: Gastrointestinal: Denies abdominal pain Genitourinary: Genitourinary: Denies hematuria Musculoskeletal: Musculoskeletal: Denies myalgias Integumentary/Breasts: Skin/Breast: Denies erythema and Denies rash Neurologic: Reports Normal hearing present and Denies Abnormal speech present Psychiatric: Psychiatric: Denies anxiety Endocrine: Endocrine: Denies excessive sweating Hematologic/Lymphatic: Hematologic/Lymphatic: Denies easy bleeding Allergic/Immunologic: Allergic/Immunologic: Denies GI upset with certain foods Exam Narrative: Awake, alert, and oriented. Const: General: comfortable HENMT: Face/Nose/Sinus: Normal nares present Mouth: Yes moist mucous membranes Other: Small laceration noted on her nose Eyes: General: appearance normal, both eyes and all related structures Sclera: sclerae normal Neck: Neck: supple Thyroid: abnormal thyroid Carotids: bruit Chest: Other: L upper chest incision noted, well-approxiomated. PPM dressing clean, dry, intact. No hematoma. Resp: Effort & Inspection: normal respiratory effort Auscultation: clear to auscultation bilaterally Cardio: Rate: regular rate Rhythm: regular rhythm Heart sounds: Murmur heart sound present Other: 3/6 systolic ejection murmur at base GI: Inspection: non-distended Auscultation: normal bowel sounds Skin: General skin exam: normal color Neuro: Cranial nerves: Yes Normal hearing present Speech: normal speech and No Abnormal speech present Motor exam (neuro): 5/5 motor strength present throughout Sensory Exam: normal sensation Extrem: General: normal to inspection Other: distal pulses intact Psych: Mental Status: mental status grossly normal Affect: no
--- NOTE | 2022-10-23 13:19 | ECG_ITS ---
Measurements Intervals [place] Rate: 92 P: 89 [place]: 184 QRS: -67 QRSD: 158 T: 143 QT: 425 QTc: 528 Interpretive Statements SINUS RHYTHM LEFT BUNDLE-BRANCH BLOCK COMPARED TO ECG 10/23/2022 05:46:43 ATRIAL FIBRILLATION HAS RESOLVED INTRAVENTRICULAR CONDUCTION DELAY NOW PRESENT Electronically Signed On 10-24-2022 8:17:36 BALLISTIC TECHNICIAN by Diana Carroll M.D.
[2022-10-23] MEDS: METOPROLOL TARTRATE 25 MG TABLET PO (20:24)
[2022-10-23] MEDS: MONTELUKAST SODIUM 10 MG TABLET PO (20:25)
[2022-10-24] VITALS (17 sets, daily range): BP systolic 117–150; BP diastolic 66–104; PULSE 60–79; RESP 16–24; TEMP 36.6–37.2; O2SAT 93–99
[2022-10-24 03:59] LABS: Basophils Percent Auto 0.5 % (0.2-1.2); Eosinophils Absolute Auto 0.5 K/mm3 (0-0.3); Eosinophils Percent Auto 5.7 % (0-4.4); Hematocrit 34.7 % (37.0-47.0); Hemoglobin 10.9 g/dL (12.0-15.0); Immature Granulocyte Absolute 0.03 K/mm3 (0.00-0.031); Immature Granulocyte Percent A 0.4 % (0-0.5); Lymphocytes Absolute Auto 1.31 K/mm3 (0.9-3.2); Lymphocytes Percent Auto 15.6 % (18.3-44.2); Mean Corpuscular HGB Conc 31.4 g/dl (32-36); Mean Corpuscular Hemoglobin 29.5 pg (26-34); Mean Corpuscular Volume 93.8 fl (80-100); Mean Platelet Volume 10.7 fl (7.4-10.4); Monocytes Absolute Auto 0.8 K/mm3 (0.1-0.6); Neutrophils Absolute Auto 5.8 K/mm3 (1.3-6.7); Neutrophils Percent Auto 68.8 % (45.5-73.1); Platelet Count Result 214 k/mm3 (150-375); Red Cell Distribution Width 13.4 % (11.5-14.5); White Blood Count 8.4 K/mm3 (4.5-10.0)
[2022-10-24 04:16] LABS: Alanine Aminotransferase 18 U/L (6-35); Albumin Level 3.3 g/dL (3.5-5.1); Alkaline Phosphatase 88 U/L (38-126); Anion Gap 2 mmol/L (8-16); Aspartate Amino Transferase 25 U/L (14-36); Bilirubin,Total 0.6 mg/dL (0.2-1.3); Blood Urea Nitrogen 10 mg/dL (7-17); Calcium 8.2 mg/dL (8.4-10.2); Carbon Dioxide 33 mmol/L (22-30); Chloride 98 mmol/L (98-107); Estimated CRCL calculation 75 ml/min; Estimated Glomerular Filt Rate > 60; Glucose 97 mg/dL (65-110); Magnesium 2.2 mg/dL (1.6-2.3); Potassium 3.6 mmol/L (3.4-5.0); Sodium 133 mmol/L (137-145)
[2022-10-24] MEDS: ASPIRIN 81 MG ENTERIC TABLET PO (09:12)
[2022-10-24] MEDS: ATORVASTATIN 10 MG TABLET PO (09:12)
[2022-10-24] MEDS: CLINDAMYCIN HCL 150 MG CAP PO ×3 (09:12→20:46)
[2022-10-24] MEDS: OMEGA 3 POLYUNSAT FATTY ACIDS 1 GM CAP PO (09:12)
[2022-10-24] MEDS: FAMOTIDINE 20 MG/2 ML VIAL IV PUSH ×2 (09:13→20:45)
[2022-10-24] MEDS: polyethylene glycoL 3350 17 GM POWD.PACK PO (09:13)
[2022-10-24] MEDS: METOPROLOL TARTRATE 25 MG TABLET PO ×2 (09:13→20:46)
[2022-10-24] MEDS: LORATADINE 10 MG TABLET PO (09:13)
--- NOTE | 2022-10-24 11:44 | PM.PNCARD ---
Progress Note: A&P Assessment and Plan (1) Pacemaker: Code(s): Z95.0 - Presence of cardiac pacemaker Status: Acute Assessment and Plan: Admitted with syncope, intermittent complete heart block with long pauses. Status post pacemaker 10/22/2022. -- Doing well, telemetry shows a sensing and ventricular pacing. -- Possible discharge Wednesday/Wednesday if ambulatory (2) Intermittent complete heart block: Code(s): I44.2 - Atrioventricular block, complete Status: Acute Assessment and Plan: . (3) Paroxysmal atrial fibrillation: Code(s): I48.0 - Paroxysmal atrial fibrillation Status: Acute Assessment and Plan: Paroxysmal. no atrial fibrillation since yesterday afternoon -- IV amio changed to p.o. metoprolol yesterday, lets see how she does w/o amiodarone. -- start Xarelto 20 mg p.o. daily. (4) Aortic stenosis: Code(s): I35.0 - Nonrheumatic aortic (valve) stenosis Status: Acute Assessment and Plan: Has moderate aortic stenosis and moderate mitral regurgitation -- outpatient follow-up (5) Weakness: Code(s): R53.1 - Weakness Status: Acute Assessment and Plan: Had been on bed rest for several days, increasing activity, doing better. --Ph Tx --Home soon? Subjective Date/time seen: 10/24/22 11:44 Interval history: Reason for visit: Syncope, Intermittent complete heart block, status post pacemaker 10/22/2022. Moderate /MR. Dementia. 10/23/2022: Was placed on IV amiodarone once again overnight because of Afib RVR. She is in sinus rhythm at this point. She is fatigued today but overall is feeling okay. Has some tenderness surrounding pacemaker insertion site. No chest pain, palpitations, shortness of breath. Date of service 10/23/2022: Patient doing well, apparently up in a chair, able ambulate a few feet. More alert the mental status is clear. Telemetry shows some intermittent atrial fibrillation, last episodes were yesterday afternoon. Amiodarone IV changed to po metoprolol yesterday. Spoke with daughter at the bedside and who was on the phone. Review of Systems Review of Systems: No chest pain, shortness of breath, dizziness. Less weak. Confusion improving. Exam Narrative: Daughter at the bedside Const: General: cooperative, healthy appearing, comfortable and confusion Orientation/consciousness: oriented to person, patient oriented x3 and No confusion HENMT: Mouth: Yes moist mucous membranes Eyes: EOM: EOMs intact bilaterally Resp: Effort & Inspection: normal respiratory effort Auscultation: clear to auscultation bilaterally Cardio: Rate: regular rate Rhythm: regular rhythm Heart sounds: Murmur heart sound present ( 3/6 STEPHANI upper sternal border) GI: Inspection: normal to inspection GI Palp: No abdominal tenderness Skin: Other: pacemaker incision sites are clean and dry Neuro: General: oriented to person and No confusion Other: patient is more cooperative, pleasant, good social skills, but still is disoriented Extrem: Right lower extremity: no edema Left lower extremity: no edema Psych: Appearance: grossly normal Mental Status: mental status grossly normal Objective Data Vital Signs Vital Signs: Vital Signs - 24 hr 10/23/22 12:00 10/23/22 12:00 10/23/22 12:00 Temperature 98.9 F Pulse Rate 88 88 88 Respiratory Rate 19 19 Blood Pressure 99/58 L Pulse Oximetry 90 90 Oxygen Delivery Room Air Oxygen Flow Rate 10/23/22 14:00 10/23/22 16:00 10/23/22 18:00 Temperature Pulse Rate 91 68 78 Respiratory Rate Blood Pressure Pulse Oximetry Oxygen Delivery Oxygen Flow Rate 10/23/22 16:00 10/23/22 16:00 10/23/22 20:00 Temperature 99.1 F Pulse Rate 68 68 74 Respiratory Rate 16 16 16 Blood Pressure 109/58 L Pulse Oximetry 97 97 96 Oxygen Delivery Room Air Room Air Oxygen Flow Rate 10/23/22 20:24 10/23/22 20:
--- NOTE | 2022-10-24 13:16 | PM.IMPN ---
Progress Note: A&P Assessment and Plan (1) Syncope: Code(s): R55 - Syncope and collapse Status: Acute Assessment and Plan: Secondary to sick sinus syndrome and sinus pauses -10/17 symptomatic sinus pauses status post post transvenous pacemaker placement -10/19: Patient was taken to the cath lab radiological technologist for permanent pacemaker placement, she got agitated and combative and the procedure was abandoned she was brought back to the ICU. -continue Telemetry monitoring -Normal TSH 10/22/2022:Status post Permanent pacemaker implantation. -patient had an episode of AFib RVR overnight requiring amiodarone, which has been discontinued as patient is back in paced rhythm . Back on amiodarone IV overnight. Area Relief Pilot switched to metoprolol. Started on Xarelto today (2) Delirium: Code(s): R41.0 - Disorientation, unspecified Status: Acute Assessment and Plan: 10/18 Patient sundowning and had delirium overnight. She was given dose of Geodon -will use Precedex infusion if required as patient still has a transvenous pacemaker -patient does get confused overnight but this morning she has been alert, awake, oriented x3 Mentation and delirium much improved (3) Aortic stenosis: Code(s): I35.0 - Nonrheumatic aortic (valve) stenosis Status: Acute Assessment and Plan: 10/17/2022 echocardiogram showed EF of 65-70%, severely increased LV wall thickness, grade 1 diastolic dysfunction, moderate aortic valve stenosis with a valve area of 1.50 cm2, severe aortic valve calcification, moderate mitral valve regurgitation, mitral valve annulus severely calcified, mild tricuspid valve regurg and mild pulmonic valve regurg. -Will need further evaluation as an outpatient for definitive therapy if indicated (4) Fever: Code(s): R50.9 - Fever, unspecified Status: Acute Assessment and Plan: Low-grade fever. Which have resolved -UA is within normal limits -chest x-ray shows patchy bilateral airspace opacities consistent with atelectasis versus pneumonia, gaseous distension of the stomach -Procalcitonin is very low suggesting against systemic infection Afebrile since 10/19/2022 (5) Cystic mass of pancreas: Code(s): K86.2 - Cyst of pancreas Status: Acute Assessment and Plan: 10/17: CT scan of the abdomen showed cholelithiasis without CT evidence of cholecystitis, 1.4 cm cystic lesion of the pancreas - Once permanent pacemakers placed, this can be followed up as an outpatient. Patient's daughter has been updated on the findings of the CT scan and they are aware of these findings and need to follow-up as an outpatient (6) Oliguria: Code(s): R34 - Anuria and oliguria Status: Acute Assessment and Plan: Urine output on the lower side. Normal renal function Will start some IV fluids and monitor renal function urine output and electrolytes -urine output has improved overnight, - creatinine is normal (7) Cholelithiasis: Code(s): K80.20 - Calculus of gallbladder without cholecystitis without obstruction Status: Acute Assessment and Plan: Cholelithiasis without any evidence of cholecystitis as seen on CD of the pelvis as above -Again if this can be managed in outpatient once patient it issues are resolved. These findings were discussed with patient's daughter and they are aware of these findings and will need to follow-up as an outpatient if needed (8) Abdominal discomfort: Code(s): R10.9 - Unspecified abdominal pain Status: Acute Assessment and Plan: CT scan reviewed and her symptoms could be secondary to cholelithiasis or GERD Patient started on Pepcid, Maalox and simethicone 10/20/2022: Obstructive series showed distended stomach along with air-filled bowel loops likely most likely colonic. Patient was nauseous and complaining for abdominal pain, NG tube was inserted with significant gastric drainage with improvement in abdominal tash
[2022-10-24] MEDS: AMIODARONE HCL 200 MG TABLET 400 MG PO (20:45)
[2022-10-24] MEDS: MONTELUKAST SODIUM 10 MG TABLET PO (20:47)
[2022-10-25] VITALS (11 sets, daily range): BP systolic 130–154; BP diastolic 55–81; PULSE 60–78; RESP 18–19; TEMP 36.8–37; O2SAT 92–98
[2022-10-25 03:52] LABS: Basophils Percent Auto 0.4 % (0.2-1.2); Eosinophils Absolute Auto 0.4 K/mm3 (0-0.3); Eosinophils Percent Auto 5.2 % (0-4.4); Hematocrit 33.2 % (37.0-47.0); Hemoglobin 10.6 g/dL (12.0-15.0); Immature Granulocyte Absolute 0.03 K/mm3 (0.00-0.031); Immature Granulocyte Percent A 0.4 % (0-0.5); Lymphocytes Absolute Auto 1.56 K/mm3 (0.9-3.2); Lymphocytes Percent Auto 18.5 % (18.3-44.2); Mean Corpuscular HGB Conc 31.9 g/dl (32-36); Mean Corpuscular Hemoglobin 29.1 pg (26-34); Mean Corpuscular Volume 91.2 fl (80-100); Mean Platelet Volume 11.1 fl (7.4-10.4); Monocytes Absolute Auto 0.8 K/mm3 (0.1-0.6); Neutrophils Absolute Auto 5.5 K/mm3 (1.3-6.7); Neutrophils Percent Auto 65.5 % (45.5-73.1); Platelet Count Result 231 k/mm3 (150-375); Red Blood Count 3.64 M/mm3 (4.2-5.4); Red Cell Distribution Width 13.3 % (11.5-14.5); White Blood Count 8.4 K/mm3 (4.5-10.0)
[2022-10-25 04:10] LABS: Alanine Aminotransferase 18 U/L (6-35); Albumin Level 3.5 g/dL (3.5-5.1); Alkaline Phosphatase 94 U/L (38-126); Anion Gap 4 mmol/L (8-16); Aspartate Amino Transferase 25 U/L (14-36); Bilirubin,Total 0.6 mg/dL (0.2-1.3); Blood Urea Nitrogen 12 mg/dL (7-17); Calcium 8.2 mg/dL (8.4-10.2); Carbon Dioxide 33 mmol/L (22-30); Chloride 98 mmol/L (98-107); Estimated CRCL calculation 66 ml/min; Estimated Glomerular Filt Rate > 60; Glucose 95 mg/dL (65-110); Magnesium 2.2 mg/dL (1.6-2.3); Potassium 3.4 mmol/L (3.4-5.0); Sodium 135 mmol/L (137-145)
[2022-10-25] MEDS: CLINDAMYCIN HCL 150 MG CAP PO ×2 (05:48→14:55)
--- NOTE | 2022-10-25 08:07 | PC.NURSE ---
From on 10/24/22, Sammi Houston RN charted all documentation under Bernie Miller RN.
[2022-10-25] MEDS: OMEGA 3 POLYUNSAT FATTY ACIDS 1 GM CAP PO (09:21)
[2022-10-25] MEDS: ATORVASTATIN 10 MG TABLET PO (09:22)
[2022-10-25] MEDS: AMIODARONE HCL 200 MG TABLET 400 MG PO (09:22)
[2022-10-25] MEDS: LORATADINE 10 MG TABLET PO (09:22)
[2022-10-25] MEDS: FAMOTIDINE 20 MG/2 ML VIAL IV PUSH (09:22)
[2022-10-25] MEDS: METOPROLOL TARTRATE 25 MG TABLET PO (09:22)
[2022-10-25] MEDS: ASPIRIN 81 MG ENTERIC TABLET PO (09:23)
--- NOTE | 2022-10-25 09:54 | PM.PNCARD ---
Progress Note: A&P Assessment and Plan (1) Pacemaker: Code(s): Z95.0 - Presence of cardiac pacemaker Status: Acute Assessment and Plan: Admitted with syncope, intermittent complete heart block with long pauses. Status post pacemaker 10/22/2022. -- Doing well, telemetry shows a sensing and ventricular pacing. -- Reviewed care pacemaker site, activity, pacemaker follow-up, etc with patient and her . -- Okay for discharge today from my point of view. Cont clindamycin post-op for a total of 7 days. (2) Intermittent complete heart block: Code(s): I44.2 - Atrioventricular block, complete Status: Acute Assessment and Plan: . (3) Paroxysmal atrial fibrillation: Code(s): I48.0 - Paroxysmal atrial fibrillation Status: Acute Assessment and Plan: Paroxysmal. No atrial fibrillation since Wednesday afternoon -- Maintaining NSR. Will DC amiodarone and see if her AFib can be control with just metoprolol. Can be follow through pacemaker check ups -- Start Xarelto 20 mg p.o. daily. -- DC ASA -- Counseled patient and about atrial fibrillation, risk of stroke, anticoagulation, risks of anticoagulation. Did desire to continue anticoagulation (4) Aortic stenosis: Code(s): I35.0 - Nonrheumatic aortic (valve) stenosis Status: Acute Assessment and Plan: Has moderate aortic stenosis and moderate mitral regurgitation -- outpatient follow-up (5) Weakness: Code(s): R53.1 - Weakness Status: Acute Assessment and Plan: Had been on bed rest for several days, increasing activity, doing better. --Home today? Subjective Date/time seen: 10/25/22 09:54 Interval history: Reason for visit: Syncope, Intermittent complete heart block, status post pacemaker 10/22/2022. Moderate /MR. Dementia. 10/23/2022: Was placed on IV amiodarone once again overnight because of Afib RVR. She is in sinus rhythm at this point. She is fatigued today but overall is feeling okay. Has some tenderness surrounding pacemaker insertion site. No chest pain, palpitations, shortness of breath. Date of service 10/23/2022: Patient doing well, apparently up in a chair, able ambulate a few feet. More alert the mental status is clear. Telemetry shows some intermittent atrial fibrillation, last episodes were yesterday afternoon. Amiodarone IV changed to po metoprolol yesterday. Spoke with daughter at the bedside and who was on the phone. Date of service 10/25/22: Doing well. at bedside. Off oxygen. Has been out of bed.Was able to ambulate around the ICU 3 times with minimal assistance. telemetry: NSR, no AFib Review of Systems Review of Systems: No chest pain, shortness of breath, dizziness, abdominal pain, bleeding Exam Narrative: Daughter at the bedside Const: General: cooperative, healthy appearing and comfortable; No confusion Orientation/consciousness: oriented to person ( and day), No patient oriented x3 and No confusion HENMT: Mouth: Yes moist mucous membranes Eyes: EOM: EOMs intact bilaterally Resp: Effort & Inspection: normal respiratory effort Auscultation: clear to auscultation bilaterally Cardio: Rate: regular rate Rhythm: regular rhythm Heart sounds: Murmur heart sound present ( 3/6 STEPHANI upper sternal border) GI: Inspection: normal to inspection Skin: Other: pacemaker incision sites are clean and dry Neuro: General: oriented to person, patient oriented x3 and No confusion Other: patient is more cooperative, pleasant, good social skills, was able to tell me that she was admitted because of started passing out, that she has a pacemaker, and that it is Wednesday. Extrem: Right lower extremity: no edema Left lower extremity: no edema Psych: Appearance: grossly normal Mental Status: mental status grossly normal Objective Data Vital Signs Vital Signs: Vital Signs - 24 hr
--- NOTE | 2022-10-25 13:07 | PM.DS ---
DS: Admitting Diagnosis Discharge Date 10/25/2022 Admitting Diagnosis Syncope DS: Discharge Diagnosis Discharge Diagnosis (1) Syncope: Code(s): R55 - Syncope and collapse Status: Acute (2) Delirium: Code(s): R41.0 - Disorientation, unspecified Status: Acute (3) Aortic stenosis: Code(s): I35.0 - Nonrheumatic aortic (valve) stenosis Status: Acute (4) Fever: Code(s): R50.9 - Fever, unspecified Status: Acute (5) Cystic mass of pancreas: Code(s): K86.2 - Cyst of pancreas Status: Acute (6) Oliguria: Code(s): R34 - Anuria and oliguria Status: Acute (7) Cholelithiasis: Code(s): K80.20 - Calculus of gallbladder without cholecystitis without obstruction Status: Acute (8) Abdominal discomfort: Code(s): R10.9 - Unspecified abdominal pain Status: Acute (9) Mixed hyperlipidemia: Code(s): E78.2 - Mixed hyperlipidemia Status: Acute DS: Summary Hospital Course Hospital Course: # Syncope: Secondary to sick sinus syndrome and sinus pauses. On 10/17/2022 because of symptomatic sinus pauses transvenous pacemaker done. On 10/19/2022 attempt for permanent placement replacement. Reported due to patient's agitation. 10/22/2022 permanent pacemaker implantation successfully performed. Continue pacemaker care and follow-up with cardiology # atrial fibrillation paroxysmal: During the hospital stay x2 was given amiodarone to convert. She was started on metoprolol and Xarelto. She has remained on sinus rhythm times 48 hours prior to discharge. TSH normal # delirium: Patient was agitated in the initial phase of admission requiring pharmacologic agents such as Geodon and Precedex drip. This continued to improve and was alert and oriented x3 by the time of discharge # aortic stenosis: 10/17/2022 echocardiogram showed EF of 65-70%, severely increased LV wall thickness, grade 1 diastolic dysfunction, moderate aortic valve stenosis with a valve area of 1.50 cm2, severe aortic valve calcification, moderate mitral valve regurgitation, mitral valve annulus severely calcified, mild tricuspid valve regurg and mild pulmonic valve regurg. This will be further evaluated as an outpatient basis today # fever: Low-grade fever.? Which have resolved -UA is within normal limits -chest x-ray shows patchy bilateral airspace opacities consistent with atelectasis versus pneumonia, gaseous distension of the stomach -Procalcitonin is very low suggesting against systemic infection Afebrile since 10/19/2022 # cystic mass of pancreas: 10/17:? CT scan of the abdomen showed cholelithiasis without CT evidence of cholecystitis, 1.4 cm cystic lesion of the pancreas - Once permanent pacemakers placed, this can be followed up as an outpatient.? Patient's daughter has been updated on the findings of the CT scan and they are aware of these findings and need to follow-up as an outpatient # cholelithiasis: Cholelithiasis without any evidence of cholecystitis as seen on CT of the pelvis as above -Again if this can be managed in outpatient once patient it issues are resolved.? These findings were discussed with patient's daughter and they are aware of these findings and will need to follow-up as an outpatient if needed # ileus: Patient complained of abdominal distension, nausea vomiting. During the hospital stay. CT scan reviewed and her symptoms could be secondary to cholelithiasis or GERD Patient started on Pepcid, Maalox and simethicone 10/20/2022:? Obstructive series showed distended stomach along with air-filled bowel loops likely most likely colonic.? Patient was nauseous and complaining for abdominal pain, NG tube was inserted with significant gastric drainage with improvement in abdominal pain, nausea and abdominal distention. Patient pulled her NG out on 10/20/2022 Patient improved symptomatically and was started on diet and tolerated well. Delete that # hyperl
--- NOTE | 2022-10-25 13:12 | PCOTNOTE ---
Attempted occupational therapy evaluation, ОЛЬГА Leigh reported that patient was not appropriate for therapy as she got herself dressed and walked around the ICU multiple times. RN reported that she will let the doctor to cancel the therapy orders when they make their rounds.
--- NOTE | 2022-10-25 13:33 | PCPTNOTE ---
received PT orders for pt; discussed pt with ОЛЬГА Leigh; She reports pt is walking in the hallways with CGA for lines only. And pt does not need PT services. Lu will talk with when rounds are made this afternoon and notify of PT d/c;
== END 2022-10-25 15:00 | disposition home or self-care (01) | DRG 243 ==
LOC: ANHED 18:40 → ANHIMU 21:05 → ANHICU 10-17 14:47
PROVIDERS: Emergency Medicine; Internal Medicine; Internal Medicine Cardiovascular Disease; Physician Assistant; Psychiatry & Neurology Neurology; Specialist; Admitting Provider Family Medicine; Emergency Provider Emergency Medicine; PCP Family Medicine; Visit Provider Internal Medicine
PROC: (CPT 33210; principal; 2022-10-17 15:10)
PROC: 0JH606Z Insertion of Pacemaker, Dual Chamber into Chest Subcutaneous Tissue and Fascia, Open Approach (ICD-10-PCS; CPT 33208; principal; 2022-10-19 13:00)
DX: I44.2 Atrioventricular block, complete (principal); K56.7 Ileus, unspecified; K86.2 Cyst of pancreas; I49.5 Sick sinus syndrome; I35.0 Nonrheumatic aortic (valve) stenosis; R41.0 Disorientation, unspecified; R55 Syncope and collapse; I48.0 Paroxysmal atrial fibrillation; S00.33XA Contusion of nose, initial encounter; W19.XXXA Unspecified fall, initial encounter; K80.20 Calculus of gallbladder without cholecystitis without obstruction; Z20.822 Contact with and (suspected) exposure to COVID-19; I34.0 Nonrheumatic mitral (valve) insufficiency; R34 Anuria and oliguria; E78.2 Mixed hyperlipidemia; F03.90 Unspecified dementia, unspecified severity, without behavioral disturbance, psychotic disturbance, mood disturbance, and anxiety
CPT/HCPCS: 33208; 33210; 36415; 70450; 71045; 71046; 74018; 74019; 74177; 80048; 80053; 80061; 81001; 82607; 82746; 83605; 83735; 84100; 84145; 84146; 84436; 84443; 84484; 85025; 85027; 85610; 85730; 86140; 86850; 86900; 86901; 87040; 87086; 87636; 93005; 93880; 94640; 95816; 96372; 96374; 99285; A9270; C1779; C1785; C1894; C8929; G0378; J0131; J0282; J0690; J0696; J1644; J1650; J2250; J2270; J2405; J2550; J2704; J2765; J3010; J3370; J7030; J7040; L1830; Q9957; Q9967

== ENCOUNTER 2023-11-12 11:01 | Outpatient (CLI) | payer MEDICARE, SELFPAY ==
[2023-11-12 12:58] LABS: Folic Acid > 20.0 ng/mL (2.76->20)
== END 2023-11-12 11:02 | disposition home or self-care (01) ==
LOC: ANHLAB 11:03
PROVIDERS: PCP Family Medicine; Visit Provider Student in an Organized Health Care Education/Training Program
DX: R41.3 Other amnesia (principal)
CPT/HCPCS: 36415; 82607; 82746

== ENCOUNTER 2024-02-17 13:51 | Outpatient (CLI) | payer MEDICARE, SELFPAY | END 2024-02-17 13:52 | disposition home or self-care (01) | LOC: ANHLAB 13:53 | PROVIDERS: PCP Family Medicine; Visit Provider Student in an Organized Health Care Education/Training Program | DX: E53.8 Deficiency of other specified B group vitamins (principal) | CPT/HCPCS: 36415; 82607 ==

== ENCOUNTER 2024-04-11 12:40 | Outpatient (CLI) | payer MEDICARE, SELFPAY ==
--- NOTE | ~2024-04-11 | US_ITS ---
EXAMINATION: US carotid duplex BI DATE: 04/11/2024 13:28 INDICATION: Bilateral carotid bruits TECHNIQUE: Grayscale, color Doppler, and pulsed Doppler images of the cervical carotid arteries were obtained. The degree of vessel stenosis is placed in one of the following categories: normal, <50%, 5 0-69%, >=70% but less than near-occlusion, near-occlusion, or total occlusion. Note that percent sten osis relative to normal distal artery lumen diameter is indirectly measured from velocity measurement s as described by Rj, et al. Radiology 2003; 229:340-346. Notes: Normal: Peak systolic velocity <125 centimeters/sec and no plaque <50%. Peak systolic velocity <125 ( EDV <40; ICA/CCA PSV ratio <2.0; used these factors only a tandem lesions or low cardiac output or co ntralateral disease) 50-69 %: PSV 125-230 (EDV 40-100; ratio 2-4) >= 70% but less than near occlusion: PSV greater than 230 (EDV > 100; ratio> 4.0) Near Occlusion: PSV that is variable; markedly narrowed lumen Occlusion: Absent flow on color/spectral Doppler and no lumen on underwood scale. COMPARISON: None. FINDINGS: RIGHT: The right common carotid artery (CCA) peak systolic velocity (PSV) is 72 cm/s. The right internal car otid artery (ICA) PSV is 70 cm/s. The right ICA end-diastolic velocity (EDV) is 18 cm/s. The right IC A/CCA PSV ratio is 1.0. The external carotid artery (ECA) PSV is 80 cm/s. There is antegrade flow in the right vertebral artery. LEFT: The left CCA PSV is 77 cm/s. The left ICA PSV is 74 cm/s. The left ICA EDV is 21 cm/s. The left ICA/C CA PSV ratio is 1.0. The ECA PSV is 59 cm/s. There is antegrade flow in the left vertebral artery. IMPRESSION: 1. Less than 50% stenosis in the right internal carotid artery by sonographic criteria. 2. Less than 50% stenosis in the left internal carotid artery by sonographic criteria. Reviewed, dictated and finalized at location B. IMPRESSION: 1. Less than 50% stenosis in the right internal carotid artery by sonographic c dianna. 2. Less than 50% stenosis in the left internal carotid artery by sonographic cr lin.
== END 2024-04-11 12:41 | disposition home or self-care (01) ==
LOC: ANHIMG 12:44
PROVIDERS: PCP Family Medicine; Visit Provider Internal Medicine Cardiovascular Disease
DX: R09.89 Other specified symptoms and signs involving the circulatory and respiratory systems (principal); I65.23 Occlusion and stenosis of bilateral carotid arteries
CPT/HCPCS: 93880

== ENCOUNTER 2024-05-09 09:49 | Outpatient (CLI) | payer MEDICARE, SELFPAY ==
[2024-05-09 10:21] LABS: Basophils Absolute Auto 0.1 K/mm3 (0.0-0.1); Basophils Percent Auto 0.6 % (0.2-1.2); Eosinophils Absolute Auto 0.6 K/mm3 (0-0.3); Eosinophils Percent Auto 6.3 % (0-4.4); Hematocrit 38.3 % (37.0-47.0); Hemoglobin 12.1 g/dL (12.0-15.0); Immature Granulocyte Absolute 0.02 K/mm3 (0.00-0.031); Immature Granulocyte Percent A 0.2 % (0-0.5); Lymphocytes Absolute Auto 1.66 K/mm3 (0.9-3.2); Mean Corpuscular HGB Conc 31.6 g/dl (32-36); Mean Corpuscular Hemoglobin 30.3 pg (26-34); Mean Corpuscular Volume 95.8 fl (80-100); Mean Platelet Volume 11.6 fl (7.4-10.4); Monocytes Absolute Auto 0.8 K/mm3 (0.1-0.6); Neutrophils Absolute Auto 5.7 K/mm3 (1.3-6.7); Neutrophils Percent Auto 64.9 % (45.5-73.1); Platelet Count Result 257 k/mm3 (150-375); Red Cell Distribution Width 13.2 % (11.5-14.5); White Blood Count 8.8 K/mm3 (4.5-10.0)
[2024-05-09 10:34] LABS: Alanine Aminotransferase 21 U/L (6-35); Albumin Level 4.1 g/dL (3.5-5.1); Alkaline Phosphatase 107 U/L (38-126); Anion Gap 8 mmol/L (4-12); Aspartate Amino Transferase 32 U/L (14-36); Bilirubin,Total 0.4 mg/dL (0.2-1.3); Blood Urea Nitrogen 12 mg/dL (7-17); Calcium 9.3 mg/dL (8.4-10.2); Carbon Dioxide 30 mmol/L (22-30); Chloride 101 mmol/L (98-107); Estimated Glomerular Filt Rate > 60; Glucose 94 mg/dL (65-110); Sodium 139 mmol/L (137-145)
== END 2024-05-09 09:50 | disposition home or self-care (01) ==
PROVIDERS: PCP Family Medicine; Visit Provider Internal Medicine Cardiovascular Disease
DX: I35.0 Nonrheumatic aortic (valve) stenosis (principal); Z01.812 Encounter for preprocedural laboratory examination
CPT/HCPCS: 36415; 80053; 85025

== ENCOUNTER 2024-08-03 13:24 | Outpatient (CLI) | payer MEDICARE, SELFPAY | END 2024-08-03 13:25 | disposition home or self-care (01) | LOC: ANHAUDIO 13:24 | PROVIDERS: PCP Family Medicine; Visit Provider Family Medicine | DX: H90.3 Sensorineural hearing loss, bilateral (principal) | CPT/HCPCS: 92557; 92567 ==

== ENCOUNTER 2024-11-06 09:45 | Outpatient (CLI) | payer MEDICARE, SELFPAY ==
[2024-11-06 10:23] LABS: Basophils Absolute Auto 0.1 K/mm3 (0.0-0.1); Eosinophils Absolute Auto 0.7 K/mm3 (0-0.3); Hemoglobin 12.2 g/dL (12.0-15.0); Immature Granulocyte Absolute 0.03 K/mm3 (0.00-0.031); Immature Granulocyte Percent A 0.4 % (0-0.5); Lymphocytes Absolute Auto 1.37 K/mm3 (0.9-3.2); Mean Corpuscular HGB Conc 31.3 g/dl (32-36); Mean Corpuscular Volume 92.6 fl (80-100); Mean Platelet Volume 11.2 fl (7.4-10.4); Monocytes Absolute Auto 0.5 K/mm3 (0.1-0.6); Monocytes Percent Auto 7.2 % (2.6-8.5); Neutrophils Absolute Auto 4.6 K/mm3 (1.3-6.7); Neutrophils Percent Auto 63.4 % (45.5-73.1); Platelet Count Result 241 k/mm3 (150-375); Red Blood Count 4.21 M/mm3 (4.2-5.4); Red Cell Distribution Width 13.3 % (11.5-14.5); White Blood Count 7.2 K/mm3 (4.5-10.0)
[2024-11-06 10:33] LABS: Cholesterol 162 mg/dL (0-200); HDL Direct 41 mg/dL; Triglycerides 193 mg/dL (<150)
[2024-11-06 10:39] LABS: Alanine Aminotransferase 24 U/L (6-35); Albumin Level 4.1 g/dL (3.5-5.1); Alkaline Phosphatase 125 U/L (38-126); Anion Gap 7 mmol/L (4-12); Aspartate Amino Transferase 30 U/L (14-36); Bilirubin,Total 0.6 mg/dL (0.2-1.3); Blood Urea Nitrogen 11 mg/dL (7-17); Carbon Dioxide 30 mmol/L (22-30); Chloride 105 mmol/L (98-107); Estimated Glomerular Filt Rate > 60; Glucose 93 mg/dL (65-110); Sodium 142 mmol/L (137-145)
[2024-11-06 10:43] LABS: LDL Cholesterol Direct 74 mg/dL
--- OUTSIDE RECORDS SUMMARY | 2024-11-06 11:00 | XMS_ITS | Referral Summary ---
Author Organization [facility] [address] [place] [address] [address] [place] [address] Care Team Providers Care Ore Charger Name Role Phone Екатерина Lopez MD Primary Care Provider [phone] Encounters Date Type Department Care Team Description 10/17/2024 Orders Only [facility] [address] [place] [address] [place] [phone] Del Norwood MD NICM (nonischemic cardiomyopathy) (CMS/HCC) (HCC) (Primary Dx); ICD (implantable cardioverter-defibri llator) in place; Ventricular fibrillation (CMS/HCC) (HCC); NSVT (nonsustained ventricular tachycardia) (HCC) 10/17/2024 7:45 AM PAVING RAMMER Ancillary Procedure [facility] [address] [place] [address] [place] [phone] LBBB (left bundle branch block) (Primary Dx); Sinus node dysfunction (CMS/HCC) (HCC); Paroxysmal atrial fibrillation (CMS/HCC) (HCC); Atrial flutter, unspecified type (HCC); Cardiac pacemaker in situ 08/16/2024 1:30 PM PAVING RAMMER Office Visit [facility] [address] [facility] [address] [place] [address] Natalie, Ericka Shannan, PATIENT RESOURCE COORDINATOR S/P TAVR (transcatheter aortic valve replacement) (Primary Dx) from Last 3 Months Allergies No known active allergies Medications metoprolol tartrate (LOPRESSOR) 25 mg immediate release tablet Take 1 tablet (25 mg total) by mouth every 12 (twelve) hours 10/25/2022 Active Xarelto 20 mg tablet Take 1 tablet (20 mg total) by mouth daily with dinner 10/25/2022 Active cetirizine (ZyrTEC) 10 mg tablet Take 1 tablet (10 mg total) by mouth daily as needed Active omega 0-qsd-jzc-fish oil (Fish OiL) 120-180-500 mg capsule Take 1 capsule by mouth daily Active donepeziL (ARICEPT) 10 mg tablet Take 1 tablet (10 mg total) by mouth nightly 02/14/2024 Active cyanocobalamin (Vitamin B-12) 1,000 mcg tabletIndicatio ns:Prevention of Vitamin B12 Deficiency Take 1 tablet (1,000 mcg total) by mouth daily Active multivitamin tabletIndicatio ns:Vitamin Deficiency Prevention Take 1 tablet by mouth daily Active atorvastatin (LIPITOR) 40 mg tablet Take 1 tablet (40 mg total) by mouth nightly at bedtime 06/20/2024 Active Active Problems Problem Noted Date Diagnosed Date S/P TAVR (transcatheter aortic valve replacement ) 07/06/2024 Severe aortic stenosis 04/12/2024 Chronic anticoagulation 04/07/2024 Bilateral carotid bruits 04/07/2024 Sinus node dysfunction (CMS/HCC) 11/24/2022 Paroxysmal atrial fibrillation (CMS/HCC) 023 Moderate aortic stenosis 11/24/2022 Cardiac pacemaker in situ 10/23/2022 Overview (10/23/2022): Hachikoronik Edora Dual Pacemaker. Dx; Sinus Node Dysfunction, Syncope, Aflutter, LBBB. DOI 10/22/2022-[facility]. Hach[employer]or[employer]cells remote monitoring. Resolved Problems Problem Noted Date Diagnosed Date Resolved Date ERRONEOUS ENCOUNTER--DISREGARD 05/28/2023 05/28/2023 Immunizations Immunization Administration Dates Next Due COVID-19 mRNA ([email or web address]) 0.3 m L (30 mcg) vaccine (12 years and up) 05/14/2024 Social History Tobacco Use Types Packs/Day Years Used Date Smoking Tobacco: Never Tobacco Cessation:Counseling Given: Not Answered AUDIT-C Answer Date Recorded Q1: How often do you have a drink containing alcohol? Never 07/06/2024 Q2: How many drinks containi ng alcohol do you have on a typical day when you are drinking? Patient does not drink Q3: How often do you have si x or more drinks on one occasion? Never 07/06/2024 Personal Safety Answer Date Recorded Have you ever been in or are you currently in a harmful physical or emotional relationship or is someone making you feel afraid or unsafe? Denies 07/06/2024 Comments No Sex and Gender Information Value Date Recorded Sex Assigned at Not on file Legal Sex Female 2:21 PM PAVING RAMMER Gender Identity Female 05/10/2024 4:28 PM CDT Sexual Orientation Straight 05/10/2024 4: 28 PM CDT Last Filed Vital Signs Vital Sign Reading Time Taken Comments Blood Pressure 130/62 08/16/2024 1:26 PM PAVING RAMMER Pulse 60 08/16/2024 1:26 PM PAVING RAMMER Temperature 37.3 C (99.1 F) 07/07/2024 8:27 AM CDT Respiratory Rate 19 07/07/2024 8:27 AM CDT Oxygen Saturation 97% 08/16/2024 1:26 PM PAVING RAMMER Inhaled Oxygen Concentration - - Weight 90.3 kg (199 lb) 08/16/2024 1:26 PM PAVING RAMMER Height 157.5 cm (5' 2 ) 08/16/2024 1:26 PM PAVING RAMMER Body Mass Index 36.4 08/16/2024 1:26 PM PAVING RAMMER Plan of Treatment Not on file Medical Devices Implanted Type Area Disease Case Manager Rn Device Identifier Shelf Expiration Date Model / Serial / Lot Pacemaker Pacemaker Left: Chest Restrepo Vascular System Closure Repair Femoral Artery Suture Mediated Perclose Prostyle 34060-46 - [id number] Implanted:Qty: 1 on 07/06/2024 by Jamal Dong MD at [facility] Vascular 04/12/2026 [id number] / / [id number] Restrepo Vascular System Closure Repair Femoral Artery Suture Mediated Perclose Prostyle 85145-78 - [id number] Implanted:Qty: 1 on 07/06/2024 by Jamal Dong MD at [facility] V[facility] 04/12/2026 [id number] / / [id number] [employer] Kit Valve Coronary Aortic Tissue Daysi 3 Ultra 23mm [id number] - [id number] - [id number] Implanted:Qty: 1 on 07/06/2024 by Jamal Dong MD at [facility] [employer]iences 03/28/2027 [id number] / [id number] / Access Closure Inc Device 10ml 5fr Closure Mynx Control 2 Mode Balloon Catheter [id number] - [id number] Implanted:Qty: 1 on 07/06/2024 by Jamal Dong MD at [facility] Access [employer] 08/12/2024 [id number] / / [id number] Procedures Procedure Name Priority Date/Time Associated Diagnosis Comments DEVICE CHECK - REMOTE Routine 10/17/2024 2:18 PM PAVING RAMMER Sinus node dysfunction (CMS/HCC) (HCC) Paroxysmal atrial fibrillation (CMS/HCC) (HCC) Atrial flutter, unspecified type (HCC) from Last 3 Months Results * DEVICE CHECK - REMOTE (10/17/2024 2:18 PM PAVING RAMMER) Anatomical Region Laterality Modality Other Narrative 10/31/2024 11:09 AM PAVING RAMMER Biotronik Edora Dual Pacemaker. Dx; Sinus Node Dysfunction, Syncope, Aflutter, LBBB. DOI 10/22/2022-[facility]. Hachikoronik remote monitoring. Routine DDD Pacemaker Remote. Transmission attached. Battery status: OK, 85% remaining battery life to CAIN. Stable lead impedances, pacing and sensing thresholds. Presenting rhythm: A paced/V paced AP-62%, BAND SPLITTER-96% No AT/AF episodes noted. No Ventricular high rate episodes detected. Medications: Xarelto 20 mg, metoprolol 25 mg See scanned report. Office pacemaker follow up: 07/04/25 Biotronik remote f/u 01/16/25. Arian Dixon, ОЛЬГА Diana Carroll MD [facility] PROCEDU RES Final Result from Last 3 Months Insurance [employer] Advance Directives For more information, please contact: [phone] Documents on File Type Date Recorded Patient Axle Polisher Expl anation Power of Application Integration Engineer 07/07/2024 9:10 AM Healthcare Agents on File Name Relationship Healthcare Agent Relationship Communication Albino Chandra Spouse Health Care Agent Care Teams Ore Charger Relationship Specialty Start Date End Date Екатерина Lopez MD PCP - General Family Medicine 11/20/20
--- OUTSIDE RECORDS SUMMARY | 2024-11-06 11:00 | XMS_ITS | Clinical Summary ---
Author Organization [facility] [place] [address] [place] [address] Care Team Providers Care Home Energy Auditor Name Role Phone Екатерина Lopez MD Primary Care Provider [phone] Allergies No known active allergies Medications metoprolol tartrate (LOPRESSOR) 25 mg immediate release tablet Take 1 tablet (25 mg total) by mouth every 12 (twelve) hours 10/25/2022 Active Xarelto 20 mg tablet Take 1 tablet (20 mg total) by mouth daily with dinner 10/25/2022 Active cetirizine (ZyrTEC) 10 mg tablet Take 1 tablet (10 mg total) by mouth daily as needed Active omega 9-vzq-dsy-fish oil (Fish OiL) 120-180-500 mg capsule Take [...] Cardiac pacemaker in situ 10/23/2022 Overview (10/23/2022): Biotronik Edora Dual Pacemaker. Dx; Sinus Node Dysfunction, Syncope, Aflutter, LBBB. DOI 10/22/2022-[employer]. [employer]mxronik remote monitoring. Resolved Problems Problem Noted Date Diagnosed Date Resolved Date ERRONEOUS ENCOUNTER--DISREGARD 05/28/2023 05/28/2023 Encounters Date Type Department Care Team Description 10/17/2024 7:45 AM ACCOUNT GENERAL MANAGER Ancillary Procedure [facility] [address] [place] [address] [place] [phone] LBBB (left bundle branch block) (Primary Dx); Sinus node dysfunction (CMS/HCC) (HCC); Paroxysmal atrial fibrillation (CMS/HCC) (HCC); Atrial flutter, unspecified type (HCC); Cardiac pacemaker in situ 10/17/2024 Orders Only [facility] [address] [place] [address] [place] [phone] Del Norwood MD NICM (nonischemic cardiomyopathy) (CMS/HCC) (HCC) (Primary Dx); ICD (implantable cardioverter-defibri llator) in place; Ventricular fibrillation (CMS/HCC) (HCC); NSVT (nonsustained ventricular tachycardia) (HCC) 08/16/2024 1:30 PM ACCOUNT GENERAL MANAGER Office Visit [facility] [address] [facility] [address] [place] [phone] Ericka Estrada NP S/P TAVR (transcatheter aortic valve replacement) (Primary Dx) from Last 3 Months Immunizations Immunization Administration Dates Next Due COVID-19 mRNA ([employer]) 0.3 m L (30 mcg) vaccine (12 years and up) 05/14/2024 Surgical History Surgery Date Site/Laterality Comments ATRIAL CARDIAC PACEMAKER INSERTION 10/14/2022 - 3 Biotronik CARDIAC CATHETERIZATION 04/13/2024 - 05/13/2024 Medical History Medical History Date Comments Hypertension Arrhythmia Memory loss Severe aortic stenosis A-fib (CMS/HCC) (HCC) Dementia (HCC) Motion sickness Hyperlipidemia Syncope prior to pacemak er insertion Asthma Family History Relation Name Status Comments Brother 1 Alive Brother 2 Alive Father (Age 65) Mother Alive Sister 1 Alive Sister 2 Alive Social History Tobacco Use Types Packs/Day Years [...] on file Legal Sex Female 2:21 PM ACCOUNT GENERAL MANAGER Gender Identity Female 05/10/2024 4:28 PM CDT Sexual Orientation Straight 05/10/2024 4: 28 PM CDT Obstetrics History Last Filed Vital Signs Vital Sign Reading Time Taken Comments Blood Pressure 130/62 08/16/2024 1:26 PM ACCOUNT GENERAL MANAGER Pulse 60 08/16/2024 1:26 PM ACCOUNT GENERAL MANAGER Temperature 37.3 C (99.1 F) 07/07/2024 8:27 AM CDT Respiratory Rate 19 07/07/2024 8:27 AM CDT Oxygen Saturation 97% 08/16/2024 1:26 PM ACCOUNT GENERAL MANAGER Inhaled Oxygen Concentration - - Weight 90.3 kg (199 lb) 08/16/2024 1:26 PM ACCOUNT GENERAL MANAGER Height 157.5 cm (5' 2 ) 08/16/2024 1:26 PM ACCOUNT GENERAL MANAGER Body Mass Index 36.4 08/16/2024 1:26 PM ACCOUNT GENERAL MANAGER Plan of Treatment Health Maintenance Due Date Last Done Comments Depression Screening 1945 Hepatitis C Screening 1945 Osteoporosis Screening-Bone Density Scan 1945 Hepatitis B Screening 1964 Pneumococcal vaccine 65+ (1 of 1 - PCV) 1996 Zoster Vaccine (1 of 2) 1996 Well Visit 65+ 12/06/2011 Influenza Vaccine (#1) 2024 06/26/2020 Fall Risk Assessment 07/07/2025 07/07/2024 DTaP/Tdap/Td Vaccine (2 - Td or Tdap) 12/08/2033 Medical Devices Implanted Type Area Cut File Clerk Device Identifier Shelf Expiration Date Model / Serial / Lot Pacemaker Pacemaker Left: Chest Restrepo Vascular System Closure Repair Femoral Artery Suture Mediated Perclose Prostyle 01188-24 - [id number] Implanted:Qty: 1 on 07/06/2024 by Jamal Dong MD at [facility] [employer] Vascular 04/12/2026 [id number] / / [id number] Restrepo Vascular System Closure Repair Femoral Artery Suture Mediated Perclose Prostyle 53415-29 - [id number] Implanted:Qty: 1 on 07/06/2024 by Jamal Dong MD at [facility] [employer] Vascular 04/12/2026 [id number] / / [id number] [employer] Kit Valve Coronary Aortic Tissue Daysi 3 Ultra 23mm [id number] - [id number] - [id number] Implanted:Qty: 1 on 07/06/2024 by Jamal Dong MD at [facility] [employer] 03/28/2027 [id number] / [id number] / Access Closure Inc Device 10ml 5fr Closure Mynx Control 2 Mode Balloon Catheter [id number] - [id number] Implanted:Qty: 1 on 07/06/2024 by Jamal Dong MD at [facility] Access [employer] 08/12/2024 [id number] / / [id number] Procedures Procedure Name Priority Date/Time Associated Diagnosis Comments DEVICE CHECK - REMOTE Routine 10/17/2024 2:18 PM ACCOUNT GENERAL MANAGER Sinus node dysfunction (CMS/HCC) (HCC) Paroxysmal atrial fibrillation (CMS/HCC) (HCC) Atrial flutter, unspecified type (HCC) from Last 3 Months Results * DEVICE CHECK - REMOTE (10/17/2024 2:18 PM ACCOUNT GENERAL MANAGER) Anatomical Region Laterality Modality Other Narrative 10/31/2024 11:09 AM ACCOUNT GENERAL MANAGER Biotronik Edora Dual Pacemaker. Dx; Sinus Node Dysfunction, Syncope, Aflutter, LBBB. DOI 10/22/2022-[facility]. Biotronik remote monitoring. Routine DDD Pacemaker Remote. Transmission attached. Battery status: OK, 85% remaining battery life to CAIN. Stable lead impedances, pacing and sensing thresholds. Presenting rhythm: A paced/V paced AP-62%, EMERGENCY DOCTOR-96% No AT/AF episodes noted. No Ventricular high rate episodes detected. Medications: Xarelto 20 mg, metoprolol 25 mg See scanned report. Office pacemaker follow up: 07/04/25 Biotronik remote f/u 01/16/25. Arian Dixon RN Diana Carroll MD CV CARDIAC SERVICES PROCEDU RES Final Result from Last 3 Months Insurance [facility] [employer] MEDICARE Advance Directives For more information, please contact: [phone] Documents on File Type Date Recorded Patient News Agent Expl anation Power of Line Mover 07/07/2024 9:10 AM Healthcare Agents on File Name Relationship Healthcare Agent Relationship Communication Albino Martinezn Corazon Spouse Health Care Agent Care Teams Home Energy Auditor Relationship Specialty Start Date End Date Екатерина Lopez MD PCP - General Family Medicine 11/20/20
--- OUTSIDE RECORDS SUMMARY | 2024-11-06 11:00 | XMS_ITS | Referral Summary ---
Author Organization [facility] [employer] Address [address] [place] [address] Care Team Providers Care Customs Consultant Name Role Phone Unavailable Primary Care Provider Unavailabl e Source Comments [facility] [employer],non-owned Affiliates and Associated Physician Practices is amultiple site organization consisting of ambulatory clinics and hospital sitesin [place], [place], [place] and [place]. This disclosure is being madepursuant to the Care Everywhere program and may not contain all information available regarding this patient. Last updated 18.[facility] [employer] Allergies No known active allergies Immunizations Name Administration Dates Next Due TDAP (7yrs+) 12/09/2023 Social History Tobacco Use Types Packs/Day Years Used Date Smoking Tobacco: Never Smokeless Tobacco: Never Tobacco Cessation:Counseling Given: Not Answered Alcohol Use Standard Drinks/Week Comments Never 0 (1 standard drink = 0.6 oz pur e alcohol) Sex and Gender Information Value Date Recorded Sex Assigned at Not on file Gender Identity Not on file Sexual Orientation Not on file Last Filed Vital Signs Vital Sign Reading Time Taken Comments Blood Pressure 116/87 12/09/2023 2:10 PM CDT Pulse 62 12/09/2023 2:10 PM CDT Temperature 36.7 C (98 F) 12/09/2023 3:57 AM CDT Respiratory Rate 22 12/09/2023 2:10 PM CDT Oxygen Saturation 90% 12/09/2023 2:10 PM CDT Inhaled Oxygen Concentration - - Weight 90.7 kg (200 lb) 12/09/2023 3:57 AM CDT Height 172.7 cm (5' 8 ) 12/09/2023 3:57 AM CDT Body Mass Index 30.41 12/09/2023 3:57 AM CDT Plan of Treatment Not on file
--- OUTSIDE RECORDS SUMMARY | 2024-11-06 11:00 | XMS_ITS | Clinical Summary ---
Author Organization [facility] Address [address] [place] [id number] Care Team Providers Care Guest Relations Agent Name Role Phone Unavailable Primary Care Provider Unavailabl e Social History Tobacco Use Types Packs/Day Years Used Date Smoking Tobacco: Never Assessed Comments Unknown Sex and Gender Information Value Date Recorded Sex Assigned at Not on file Legal Sex Female 7:34 PM CDT Gender Identity Not on file Sexual Orientation Not on file Plan of Treatment Health Maintenance Due Date Last Done Comments Hepatitis C 1963 DTaP, Tdap and Td Vaccines ( 1 - Tdap) 1965 Zoster Vaccines (1 of 2) 1996 Dexa Scan (General) 12/06/2011 Pneumococcal Vaccine: 65+ Ye ars (1 of 1 - PCV) 12/06/2011 RSV Immunization or 60+ Years (1 - 1-dose 75+ series) 2021 COVID-19 Vaccine ( - 2023-2 5 season) 2024 Influenza Adult (#1) 2024 Meningococcal B Vaccine Aged Out No l onger eligible based on patient's age to complete this topic Meningococcal Vaccine Aged Out No lorena oscar eligible based on patient's age to complete this topic RSV Immunizations Under 20 Months Aged Out No longer eligible based on patient's age to complete this topic
--- OUTSIDE RECORDS SUMMARY | 2024-11-06 11:00 | XMS_ITS | Patient Health Summary ---
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 atlantoaxial joint osteoarthritis, the craniocervical junction appears normal. There is mild to moderate multilevel degenerative disc disease. No central canal stenosis is seen. There are varying degrees of advanced facet osteoarthritis. There are varying degrees of advanced uncovertebral joint osteoarthritis with the same degree of neuralforaminal stenosis at these levels. There is atherosclerotic calcification of the carotid bifurcations. Thoracic spine: Partially visualized pacer leads. The alignment is normal. Cortical irregularity noted over the left lateral superior endplate of the T12 vertebral body (image 43 series 6 and image 37 series 5) representing a minimally displaced fracture. There is mild degenerative disc disease. Bridging syndesmophytes and ossification of the anterior longitudinal ligament at multiple levels suggest diffuse idiopathic skeletal hyperostosis (DISH). Mild central canal stenosis at noted at T11-T12. There is advanced facet osteoarthritis at multiple levels. There are varying degrees of neural foraminal stenosis at multiple levels. No soft tissue abnormality is identified. Lumbar spine: The alignment is normal. Vertebral bodies are normal in height without evidence of acute fracture. The intervertebral discs appear normal. No central canal stenosis is seen. There is mild facet osteoarthritis at multiple levels. No neural foraminal stenosis is seen. Soft tissue contusion noted over the lumbar spine. Atherosclerotic calcification of aorta and its branches. IMPRESSION: 1.No acute intracranial process. 2.Soft tissue contusion noted over the right scalp adjacent to thecoronal suture. 3.Acute minimally displaced fracture of the left lateral superiorendplate of T12. 4.No evidence of acute fracture in the cervical or lumbar spine. > Dictated by Chinedu Alonso DO (vice president underwriting) I, Rosette Rivera MD have personally reviewed and interpreted this examination/study. > Interpreting Provider: Rosette Rivera MD on 12/09/2023 10:43 AM Luis Zamarripa MD CT ORDERABLES * CT CERVICAL SPINE WO CONTRAST - C-Spine Trauma, Spine fracture (12/09/2023 5:40 AM CDT) Anatomical Region Laterality Modality Spine Computed Tomogra phy 12/09/2023 7:14 AM CDT Impressions 12/09/2023 10:43 AM CDT IMPRESSION: 1.No acute intracranial process. 2.Soft tissue contusion noted over the right scalp adjacent to the coronal suture. 3.Acute minimally displaced fracture of the left lateral superior endplate of T12. 4.No evidence of acute fracture in the cervical or lumbar spine. > Dictated by Chinedu Alonso DO (vice president underwriting) I, Rosette Rivera MD have personally reviewed and interpreted this examination/study. > Interpreting Provider: Rosette Rivera MD on 12/09/2023 10:43 AM Narrative 12/09/2023 10:43 AM CDT PROCEDURE: CT HEAD WO CONTRAST, CT LUMBAR SPINE WO CONTRAST, CT THORACIC SPINE WO CONTRAST, CT CERVICAL SPINE WO CONTRAST, DATE/TIME OF EXAM: 12/09/2023 5:44 AM, LOCATION [facility] INDICATION: Trauma COMPARISON: None. TECHNIQUE: CT of the head and cervical spine was performed without contrast according to standard protocol. Reformatted axial, sagittal, and coronal images of the thoracic and lumbar spine were obtained by the technologist from a concurrently performed body CT and sent to the workstation for review. FINDINGS: Head: No acute intra- or extra-axial fluid collections are identified. There is mild cerebral volume loss with associated ex vacuo ventricular dilatation. The basilar cisterns are patent. No mass effect or midline shift is seen. The underwood-white matter differentiation is normal. Periventricular white matter hypoattenuation is indicative of chronic small vessel ischemic disease. There is vascular calcification of the carotid siphons. No acute calvarial fracture is identified. The orbits appear normal. The paranasal sinuses are clear.. The mastoid air cells are clear. Soft tissue contusion noted adjacent to the right coronal suture. Cervical spine: The cervical spine is straightened which could be positional. Vertebral bodies are normal in height without evidence of acute fracture. Other than middle atlantoaxial joint osteoarthritis, the craniocervical junction appears normal. There is mild to moderate multilevel degenerative disc disease. No central canal stenosis is seen. There are varying degrees of advanced facet osteoarthritis. There are varying degrees of advanced uncovertebral joint osteoarthritis with the same degree of neural foraminal stenosis at these levels. There is atherosclerotic calcification of the carotid bifurcations. Thoracic spine: Partially visualized pacer leads. The alignment is normal. Cortical irregularity noted over the left lateral superior endplate of the T12 vertebral body (image 43 series 6 and image 37 series 5) representing a minimally displaced fracture. There is mild degenerative disc disease. Bridging syndesmophytes and ossification of the anterior longitudinal ligament at multiple levels suggest diffuse idiopathic skeletal hyperostosis (DISH). Mild central canal stenosis at noted at T11-T12. There is advanced facet osteoarthritis at multiple levels. There are varying degrees of neural foraminal stenosis at multiple levels. No soft tissue abnormality is identified. Lumbar spine: The alignment is normal. Vertebral bodies are normal in height without evidence of acute fracture. The intervertebral discs appear normal. No central canal stenosis is seen. There is mild facet osteoarthritis at multiple levels. No neural foraminal stenosis is seen. Soft tissue contusion noted over the lumbar spine. Atherosclerotic calcification of aorta and its branches. Procedure Note Rosette Rivera MD - 12/09/2023 PROCEDURE: CT HEAD WO CONTRAST, CT LUMBAR SPINE WO CONTRAST, CTTHORACIC SPINE WO CONTRAST, CT CERVICAL SPINE WO CONTRAST, DATE/TIME OF EXAM: 12/09/2023 5:44 AM, LOCATION [facility] INDICATION: Trauma COMPARISON: None. TECHNIQUE: CT of the head and cervical spine was performed withoutcontrast according to standard protocol. Reformatted axial, sagittal, and coronal images of the thoracic and lumbar spine were obtained by thetechnologist from a concurrently performed body CT and sent to the workstation for review. FINDINGS: Head: No acute intra- or extra-axial fluid collections are identified. Thereis mild cerebral volume loss with associated ex vacuo ventriculardilatation. The basilar cisterns are patent. No mass effect or midline shift isseen. The underwood-white matter differentiation is normal. Periventricular white matter hypoattenuation is indicative of chronic small vessel ischemic disease. There is vascular calcification of the carotid siphons. No acute calvarial fracture is identified. The orbits appear normal. The paranasal sinuses are clear.. The mastoid air cells are clear. Softtissue contusion noted adjacent to the right coronal suture. Cervical spine: The cervical spine is straightened which could be positional. Vertebral bodies are normal in height without evidence of acute fracture. Otherthan middle atlantoaxial joint osteoarthritis, the craniocervical junction appears normal. There is mild to moderate multilevel degenerative disc disease. No central canal stenosis is seen. There are varying degrees of advanced facet osteoarthritis. There are varying degrees of advanced uncovertebral joint osteoarthritis with the same degree of neuralforaminal stenosis at these levels. There is atherosclerotic calcification of the carotid bifurcations. Thoracic spine: Partially visualized pacer leads. The alignment is normal. Cortical irregularity noted over the left lateral superior endplate of the T12 vertebral body (image 43 series 6 and image 37 series 5) representing a minimally displaced fracture. There is mild degenerative disc disease. Bridging syndesmophytes and ossification of the anterior longitudinal ligament at multiple levels suggest diffuse idiopathic skeletal hyperostosis (DISH). Mild central canal stenosis at noted at T11-T12. There is advanced facet osteoarthritis at multiple levels. There are varying degrees of neural foraminal stenosis at multiple levels. No soft tissue abnormality is identified. Lumbar spine: The alignment is normal. Vertebral bodies are normal in height without evidence of acute fracture. The intervertebral discs appear normal. No central canal stenosis is seen. There is mild facet osteoarthritis at multiple levels. No neural foraminal stenosis is seen. Soft tissue contusion noted over the lumbar spine. Atherosclerotic calcification of aorta and its branches. IMPRESSION: 1.No acute intracranial process. 2.Soft tissue contusion noted over the right scalp adjacent to thecoronal suture. 3.Acute minimally displaced fracture of the left lateral superiorendplate of T12. 4.No evidence of acute fracture in the cervical or lumbar spine. > Dictated by Chinedu Alonso DO (vice president underwriting) I, Rosette Rivera MD have personally reviewed and interpreted this examination/study. > Interpreting Provider: Rosette Rivera MD on 12/09/2023 10:43 AM Luis Zamarripa MD CT ORDERABLES * CT HEAD WO CONTRAST - Head Trauma, CSF leak, mental status changes (12/09/2023 5:40 AM CDT) Anatomical Region Laterality Modality Head Computed Tomogra phy 12/09/2023 7:14 AM CDT Impressions 12/09/2023 10:43 AM CDT IMPRESSION: 1.No acute intracranial process. 2.Soft tissue contusion noted over the right scalp adjacent to the coronal suture. 3.Acute minimally displaced fracture of the left lateral superior endplate of T12. 4.No evidence of acute fracture in the cervical or lumbar spine. > Dictated by Chinedu Alonso DO (vice president underwriting) I, Rosette Rivera MD have personally reviewed and interpreted this examination/study. > Interpreting Provider: Rosette Rivera MD on 12/09/2023 10:43 AM Narrative 12/09/2023 10:43 AM CDT PROCEDURE: CT HEAD WO CONTRAST, CT LUMBAR SPINE WO CONTRAST, CT THORACIC SPINE WO CONTRAST, CT CERVICAL SPINE WO CONTRAST, DATE/TIME OF EXAM: 12/09/2023 5:44 AM, LOCATION [facility] INDICATION: Trauma COMPARISON: None. TECHNIQUE: CT of the head and cervical spine was performed without contrast according to standard protocol. Reformatted axial, sagittal, and coronal images of the thoracic and lumbar spine were obtained by the technologist from a concurrently performed body CT and sent to the workstation for review. FINDINGS: Head: No acute intra- or extra-axial fluid collections are identified. There is mild cerebral volume loss with associated ex vacuo ventricular dilatation. The basilar cisterns are patent. No mass effect or midline shift is seen. The underwood-white matter differentiation is normal. Periventricular white matter hypoattenuation is indicative of chronic small vessel ischemic disease. There is vascular calcification of the carotid siphons. No acute calvarial fracture is identified. The orbits appear normal. The paranasal sinuses are clear.. The mastoid air cells are clear. Soft tissue contusion noted adjacent to the right coronal suture. Cervical spine: The cervical spine is straightened which could be positional. Vertebral bodies are normal in height without evidence of acute fracture. Other than middle atlantoaxial joint osteoarthritis, the craniocervical junction appears normal. There is mild to moderate multilevel degenerative disc disease. No central canal stenosis is seen. There are varying degrees of advanced facet osteoarthritis. There are varying degrees of advanced uncovertebral joint osteoarthritis with the same degree of neural foraminal stenosis at these levels. There is atherosclerotic calcification of the carotid bifurcations. Thoracic spine: Partially visualized pacer leads. The alignment is normal. Cortical irregularity noted over the left lateral superior endplate of the T12 vertebral body (image 43 series 6 and image 37 series 5) representing a minimally displaced fracture. There is mild degenerative disc disease. Bridging syndesmophytes and ossification of the anterior longitudinal ligament at multiple levels suggest diffuse idiopathic skeletal hyperostosis (DISH). Mild central canal stenosis at noted at T11-T12. There is advanced facet osteoarthritis at multiple levels. There are varying degrees of neural foraminal stenosis at multiple levels. No soft tissue abnormality is identified. Lumbar spine: The alignment is normal. Vertebral bodies are normal in height without evidence of acute fracture. The intervertebral discs appear normal. No central canal stenosis is seen. There is mild facet osteoarthritis at multiple levels. No neural foraminal stenosis is seen. Soft tissue contusion noted over the lumbar spine. Atherosclerotic calcification of aorta and its branches. Procedure Note Rosette Rivera MD - 12/09/2023 PROCEDURE: CT HEAD WO CONTRAST, CT LUMBAR SPINE WO CONTRAST, CTTHORACIC SPINE WO CONTRAST, CT CERVICAL SPINE WO CONTRAST, DATE/TIME OF EXAM: 12/09/2023 5:44 AM, LOCATION [facility] INDICATION: Trauma COMPARISON: None. TECHNIQUE: CT of the head and cervical spine was performed withoutcontrast according to standard protocol. Reformatted axial, sagittal, and coronal images of the thoracic and lumbar spine were obtained by thetechnologist from a concurrently performed body CT and sent to the workstation for review. FINDINGS: Head: No acute intra- or extra-axial fluid collections are identified. Thereis mild cerebral volume loss with associated ex vacuo ventriculardilatation. The basilar cisterns are patent. No mass effect or midline shift isseen. The underwood-white matter differentiation is normal. Periventricular white matter hypoattenuation is indicative of chronic small vessel ischemic disease. There is vascular calcification of the carotid siphons. No acute calvarial fracture is identified. The orbits appear normal. The paranasal sinuses are clear.. The mastoid air cells are clear. Softtissue contusion noted adjacent to the right coronal suture. Cervical spine: The cervical spine is straightened which could be positional. Vertebral bodies are normal in height without evidence of acute fracture. Otherthan middle atlantoaxial joint osteoarthritis, the craniocervical junction appears normal. There is mild to moderate multilevel degenerative disc disease. No central canal stenosis is seen. There are varying degrees of advanced facet osteoarthritis. There are varying degrees of advanced uncovertebral joint osteoarthritis with the same degree of neuralforaminal stenosis at these levels. There is atherosclerotic calcification of the carotid bifurcations. Thoracic spine: Partially visualized pacer leads. The alignment is normal. Cortical irregularity noted over the left lateral superior endplate of the T12 vertebral body (image 43 series 6 and image 37 series 5) representing a minimally displaced fracture. There is mild degenerative disc disease. Bridging syndesmophytes and ossification of the anterior longitudinal ligament at multiple levels suggest diffuse idiopathic skeletal hyperostosis (DISH). Mild central canal stenosis at noted at T11-T12. There is advanced facet osteoarthritis at multiple levels. There are varying degrees of neural foraminal stenosis at multiple levels. No soft tissue abnormality is identified. Lumbar spine: The alignment is normal. Vertebral bodies are normal in height without evidence of acute fracture. The intervertebral discs appear normal. No central canal stenosis is seen. There is mild facet osteoarthritis at multiple levels. No neural foraminal stenosis is seen. Soft tissue contusion noted over the lumbar spine. Atherosclerotic calcification of aorta and its branches. IMPRESSION: 1.No acute intracranial process. 2.Soft tissue contusion noted over the right scalp adjacent to thecoronal suture. 3.Acute minimally displaced fracture of the left lateral superiorendplate of T12. 4.No evidence of acute fracture in the cervical or lumbar spine. > Dictated by Chinedu Alonso DO (vice president underwriting) I, Rosette Rivera MD have personally reviewed and interpreted this examination/study. > Interpreting Provider: Rosette Rivera MD on 12/09/2023 10:43 AM Luis Zamarripa MD CT ORDERABLES * (ABNORMAL) PT-INR [facility] (12/09/2023 4:36 AM CDT) PT 17.0(H) 12.1 - 14.8 Seconds 12/09/2023 5:12 AM CDT [facility] INR 1.4 See Comment 12/09/2023 5:12 AM CDT [facility] Comment:The suggested therap eutic range for standard coumadin (warfarin) therapy is an INR of 2.0-3.0. For high-risk patients (Mechanical Mitral Valve Prosthesis, etc.), the suggested prophylactic therapeutic range is an INR of 2.5-3.5. Blood BLOOD SPECIMEN / Unknown Venipuncture / Unknown 12/09/2023 4:36 AM CDT 12/09/2023 4:46 AM CDT Luis Zamarripa MD LAB - COAGULATION OR DERABLES [address] [address], [place] [phone] * TROPONIN-I HIGH SENSITIVE BASELINE + 1HR (12/09/2023 4:36 AM CDT) Troponin I High Sensitive 9 <=14 ng/L 12/09/2023 5:24 AM [facility] Blood BLOOD SPECIMEN / Unknown Venipuncture / Unknown 12/09/2023 4:36 AM CDT 12/09/2023 4:46 AM CDT Luis Zamarripa MD LAB - CHEMISTRY ORDE RABLES Performing Organization Address City/[facility]/ZIP Co de Phone Number [address] [address], [facility] [place] [phone] * (ABNORMAL) CBC W AUTO DIFFERENTIAL (12/09/2023 4:36 AM CDT) Pathologist [facility] WBC 9.9 4.0 - 10.7 x10E9/L 12/09/2023 5:03 AM [facility] RBC Count 4.17 3.90 - 5.20 x10E12/L 12/09/2023 5:03 AM [facility] Hemoglobin 12.6 11.9 - 15.8 g/dL 12/09/2023 5:03 AM [facility] Hematocrit 37.4 34.8 - 46.1 % 12/09/2023 5:03 AM [facility] MCV 89.7 80.0 - 98.0 fL 12/09/2023 5:03 AM [facility] MCH 30.2 26.7 - 33.6 pg 12/09/2023 5:03 AM [facility] MCHC 33.7 31.7 - 36.3 g/dL 12/09/2023 5:03 AM [facility] RDW-CV 13.2 11.3 - 14.8 % 12/09/2023 5:03 AM [facility] Platelet Count 263 150 - 420 x10E9/L 12/09/2023 5:03 AM [facility] MPV 12.1(H) 7.8 - 11.4 fL 12/09/2023 5:03 AM [facility] Neutrophil % 77.9(H) 41.0 - 74.0 % 12/09/2023 5:03 AM [facility] Lymphocyte % 11.1(L) 17.0 - 47.0 % 12/09/2023 5:03 AM [facility] Monocyte % 6.5 3.0 - 11.0 % 12/09/2023 5:03 AM [facility] Eosinophil % 3.7 0.0 - 7.0 % 12/09/2023 5:03 AM [facility] Basophil % 0.3 0.0 - 1.6 % 12/09/2023 5:03 AM [facility] Immature Granulocytes % 0.5 0.0 - 1.0 % 12/09/2023 5:03 AM [facility] Neutrophil Absolute 7.73(H) 1.60 - 7.50 x10E9/L 12/09/2023 5:03 AM [facility] Lymphocyte Absolute 1.10 1.00 - 4.40 x10E9/L 12/09/2023 5:03 AM [facility] Monocyte Absolute 0.65 0.15 - 1.00 x10E9/L 12/09/2023 5:03 AM [facility] Eosinophil Absolute 0.37 0.00 - 0.60 x10E9/L 12/09/2023 5:03 AM [facility] Basophil Absolute 0.03 0.00 - 0.13 x10E9/L 12/09/2023 5:03 AM [facility] Blood BLOOD SPECIMEN / Unknown Venipuncture / Unknown 12/09/2023 4:36 AM CDT 12/09/2023 4:46 AM CDT Luis Zamarripa MD LAB - HEMATOLOGY ORD ERABLES [facility] [address] [place] [address], [facility] [place] [phone] * (ABNORMAL) COMPREHENSIVE METABOLIC PANEL (12/09/2023 4:36 AM [facility]) BUN 14 7 - 26 mg/dL 12/09/2023 5:19 AM [facility] Creatinine 0.84 0.56 - 0.96 mg/dL 12/09/2023 5:19 AM [facility] Sodium 139 136 - 145 mmol/L 12/09/2023 5:19 AM [facility] Potassium 3.8 3.5 - 4.5 mmol/L 12/09/2023 5:19 AM [facility] Chloride 106 98 - 107 mmol/L 12/09/2023 5:19 AM [facility] CO2 23 22 - 29 mmol/L 12/09/2023 5:19 AM [facility] Glucose 115 70 - 115 mg/dL 12/09/2023 5:19 AM [facility] Calcium 9.6 8.4 - 10.2 mg/dL 12/09/2023 5:19 AM [facility] Protein Total 7.9 6.0 - 8.3 g/dL 12/09/2023 5:19 AM [facility] Albumin 3.8 3.4 - 5.0 g/dL 12/09/2023 5:19 AM [facility] Bilirubin Total 0.5 0.2 - 1.2 mg/dL 12/09/2023 5:19 AM [facility] Alkaline Phosphatase 110 40 - 150 U/L 12/09/2023 5:19 AM [facility] ALT 17 5 - 55 U/L 12/09/2023 5:19 AM [facility] AST 24 5 - 34 U/L 12/09/2023 5:19 AM [facility] Anion Gap 10 6 - 16 12/09/2023 5:19 AM [facility] BUN/Creatinine Ratio 17 7 - 23 12/09/2023 5:19 AM [facility] Osmolality Calculated 289 275 - 295 mOsm/kg 12/09/2023 5:19 AM [facility] Albumin/Globulin Ratio 0.9(L) 1.1 - 2.3 12/09/2023 5:19 AM CDT [facility] eGFR by CKD-EPI 72(L) >=90 mL/min/1.7 3 m2 12/09/2023 5:19 AM CDT [facility] Blood BLOOD SPECIMEN / Unknown Venipuncture / Unknown 12/09/2023 4:36 AM CDT 12/09/2023 4:46 AM CDT Luis Zamarripa MD LAB - CHEMISTRY AGUSTIN RICKETTS Performing Organization Address [facility]/ZIP Co de Phone Number [address] [address], [facility] [place] [phone] * ALCOHOL ETHYL BLOOD (12/09/2023 4:36 AM CDT) Ethanol (mg/dL) <10 <10 mg/dL 5:19 AM CDT [facility] Ethanol Calculated (g/dL) <0.010 <=0.010 g/dL 12/09/2023 5:19 AM CDT [facility] Blood BLOOD SPECIMEN / Unknown Venipuncture / Unknown 12/09/2023 4:36 AM CDT 12/09/2023 4:46 AM CDT Narrative [facility] - 12/09/2023 5:19 AM CDT Ethanol Interp <10: None Detected. Depression of BL[employer] P[employer] OPERATOR: >100 mg/dl Potentially Critical: >250 mg/dl Potentially Fatal >400 mg/dl Ethanol in the patient's blood will contribute to the osmolar gap. Ethanol's contribution to the osmolar gap can be estimated by dividing the concentration of ethanol in mg/dL by 4.6. This test is for clinical use only and does not equal a MARC for legal purposes. Luis Zamarripa MD LAB - CHEMISTRY AGUSTIN RICKETTS Performing Organization Address [facility]/ZIP Co de Phone Number [facility] [address] [place] [address], [place] [phone] * XR CHEST 1VW PORTABLE (12/09/2023 4:14 AM CDT) Anatomical Region Laterality Modality Chest Radiographic Preethi ging 12/09/2023 6:01 AM CDT Narrative 12/09/2023 9:11 AM CDT PROCEDURE: XR CHEST 1VW PORTABLE DATE/TIME OF EXAM: 12/09/2023 4:14 AM CLINICAL INFORMATION: None relevant/not provided if blank. Indication: Trauma Additional History: COMPARISON: CT chest abdomen pelvis 12/09/2023 FINDINGS/IMPRESSION: There is no focal consolidation, pleural effusion, or pneumothorax. The heart is on the upper limits of normal in size for portable technique. There is a calcified mitral valve annulus. The superior mediastinal silhouette normal. The visible bony thorax is intact. Report dictated by Luis Hill MD (vice president business development). Leatha Calvo MD have personally reviewed and interpreted this examination/study. > Interpreting Provider: Leatha Noyola MD on 12/09/2023 9:11 AM Procedure Note Leatha Noyola MD - 12/09/2023 PROCEDURE: XR CHEST 1VW PORTABLE DATE/TIME OF EXAM: 12/09/2023 4:14 AM CLINICAL INFORMATION: None relevant/not provided if blank. Indication: Trauma Additional History: COMPARISON: CT chest abdomen pelvis 12/09/2023 FINDINGS/IMPRESSION: There is no focal consolidation, pleural effusion, or pneumothorax. The heart is on the upper limits of normal in size for portable technique. There is a calcified mitral valve annulus. The superior mediastinal silhouette normal. The visible bony thorax is intact. Report dictated by Luis Hill MD (vice president business development). Leatha Calvo MD have personally reviewed and interpreted this examination/study. > Interpreting Provider: Leatha Noyola MD on 49:11 AM Luis Zamarripa MD DIAGNOSTIC IMAGING O R[facility]ABLES * XR PELVIS 1 OR 2VW (12/09/2023 4:14 AM CDT) Anatomical Region Laterality Modality Pelvis Radiographic Preethi ging 12/09/2023 4:41 AM CDT Impressions 12/09/2023 9:12 AM CDT IMPRESSION: No acute fracture identified. Report dictated by Luis Hill MD (vice president business development). Leatha Calvo MD have personally reviewed and interpreted this examination/study. > Interpreting Provider: Leatha Noyola MD on 12/09/2023 9:12 AM Narrative 12/09/2023 9:12 AM CDT PROCEDURE: XR PELVIS 1 OR 2VW, DATE/TIME OF EXAM: 12/09/2023 4:14 AM, LOCATION [facility] INDICATION: Trauma Fracture suspected ADDITIONAL CLINICAL INFORMATION: COMPARISON: CT chest abdomen pelvis 12/09/2023 FINDINGS: No acute fracture is identified. The femoral heads appear well-seated within their respective acetabula. The pubic symphysis is intact. Bone density and texture are normal. The sacroiliac joints are normal. Procedure Note Leatha Noyola MD - 12/09/2023 PROCEDURE: XR PELVIS 1 OR 2VW, DATE/TIME OF EXAM: 12/09/2023 4:14 AM, LOCATION [facility] INDICATION: Trauma Fracture suspected ADDITIONAL CLINICAL INFORMATION: COMPARISON: CT chest abdomen pelvis 12/09/2023 FINDINGS: No acute fracture is identified. The femoral heads appear well-seated within their respective acetabula. The pubic symphysis is intact. Bone density and texture are normal. The sacroiliac joints are normal. IMPRESSION: No acute fracture identified. Report dictated by Luis Hill MD (vice president business development). Leatha Calvo MD have personally reviewed and interpreted this examination/study. > Interpreting Provider: Leatha Noyola MD on 49:12 AM Luis Zamarripa MD DIAGNOSTIC IMAGING O [facility]
--- OUTSIDE RECORDS SUMMARY | 2024-11-06 11:00 | XMS_ITS | Clinical Summary ---
Author Organization [facility] Address [address] [place] [address] Care Team Providers Care Security Shift Supervisor Name Role Phone Unavailable Primary Care Provider Unavailabl e Source Comments [facility],non-owned Affiliates and Associated Physician Practices is amultiple site organization consisting of ambulatory clinics and hospital sitesin [place], [place], [place] and [place]. This disclosure is being madepursuant to the Care Everywhere program and may not contain all information available regarding this patient. Last updated 18.[facility] Allergies No known active allergies Immunizations Name [...] 12/09/2023 3:57 AM CDT Plan of Treatment Health Maintenance Due Date Last Done Comments BONE DENSITY TESTING 1945 HEPATITIS C SCREENING 11/30/1964 PNEUMOCOCCAL VACCINE 50+ (1 of 1 - PCV) 1996 ZOSTER VACCINE (1 of 2) 1996 Respiratory Syncytial Virus (RSV) Vaccine Pt: or over 60 yrs (1 - 1-dose 75+ series) 2021 COVID-19 VACCINE (1 - 2023-2 5 season) 2024 INFLUENZA VACCINE (#1) 2024 DEPRESSION SCREENING 09/13/2024 MEDICARE AWV CALENDAR YEAR 2024 DTAP/TDAP/TD VACCINES (2 - T d or Tdap) 12/08/2033 12/09/2023 HEPATITIS B VACCINE Aged Out No longe r eligible based on patient's age to complete this topic HIB VACCINE Aged Out No longer eligi ble based on patient's age to complete this topic HPV VACCINE Aged Out No longer eligi ble based on patient's age to complete this topic MENINGOCOCCAL (Group B) VACCINE Aged Out No longer eligible based on patient's age to complete this topic MENINGOCOCCAL VACCINE Aged Out No lorena oscar eligible based on patient's age to complete this topic
[2024-11-06 11:05] LABS: Hemoglobin A1C 5.8 % (<5.7)
[2024-11-06 11:09] LABS: Vitamin D 25 Hydroxy 32.3 ng/mL
[2024-11-06 11:39] LABS: Hepatitis C Virus Antibody Negative (Negative)
[2024-11-07 17:39] LABS: Red Blood Cell Folate 644 ng/mL RBC (>280)
[2024-11-09 16:33] LABS: A Beta 42 47 pg/mL; ABETA 40 242 pg/mL; Beta Amyloid 42/40 Ratio Plasm 0.194 (> OR = 0.170)
[2024-11-10 00:43] LABS: Methylmalonic Acid 111 nmol/L (69-390)
[2024-11-10 04:43] LABS: Phos tau181(p-tau181) Plasma 1.46 pg/mL (< OR = 1.07)
== END 2024-11-06 09:46 | disposition home or self-care (01) ==
PROVIDERS: PCP Family Medicine; Referring Provider Family Medicine; Visit Provider Psychiatry & Neurology Neurology
DX: R73.03 Prediabetes (principal); E55.9 Vitamin D deficiency, unspecified; R41.3 Other amnesia; E53.8 Deficiency of other specified B group vitamins; K86.2 Cyst of pancreas; R53.83 Other fatigue; Z11.59 Encounter for screening for other viral diseases
CPT/HCPCS: 36415; 80053; 80061; 82233; 82306; 82607; 82747; 83036; 83921; 84393; 84443; 85025; 86803

== ENCOUNTER 2025-03-15 11:15 | Outpatient (RCR) | payer MEDICARE, SELFPAY ==
[2024-12-08 15:36] VITALS: PULSE 70
== END 2025-03-15 12:30 | disposition home or self-care (01) ==
LOC: ANHCPREHAB 11:15
PROVIDERS: Visit Provider Internal Medicine Cardiovascular Disease
DX: Z95.2 Presence of prosthetic heart valve (principal)
CPT/HCPCS: 93798